=== PATIENT | female | born 1945 | race Caucasian/White ===

== ENCOUNTER 2020-02-28 08:48 | Outpatient (CLI) | payer MEDICARE, SELFPAY ==
--- NOTE | ~2020-02-28 | DEXA_ITS ---
Bone Density Report Name: Michaelle Lopez Age: 74 Sex: Female Ethnicity: White Date of : 1945 Indication: postmenopausal; Referring Provider: Radha Reid Study: Bone densitometry was performed. Exam Date: February 28, 2020 Accession number: [id number] Bone Density: Region BMD T-score Z-score Classification AP Spine (L1-L4) 0.693 -3.2 -0.8 Osteoporosis Femoral Neck (Left) 0.590 -2.3 -0.2 Osteopenia Total Hip (Left) 0.741 -1.6 0.2 Osteopenia Total Hip Bilateral Avg 0.751 -1.6 0.3 Osteopenia Femoral Neck (Right) 0.608 -2.2 -0.1 Osteopenia Total Hip (Right) 0.761 -1.5 0.3 Osteopenia World Health Organization criteria for BMD impression classify patients as: Normal (T-score at or above -1.0), Osteopenia (T-score between -1.0 and -2.5), or Osteoporosis (T-score at or below -2.5). 10-year Fracture Risk: FRAX not reported because: Some T-score for Spine Total or Hip Total or Femoral Neck at or below -2.5 Treated for osteoporosis Clinical Information Provided by Patient: Is being treated for osteoporosis Has used the following medications: Boniva (i.e. ibandronate), Forteo (i.e. parathyroid hormone), Fosamax (i.e. alendronate) Patient maximum height was 65 Menopause Age: 49 Onset of menses at age 11 Number of children 2 Impression: The patient has osteoporosis, based on the Total Spine T-score. Discussion: It is important to ask patients whether they are taking their medications and to encourage continued and appropriate compliance with their osteoporosis therapies to reduce fracture risk. It is also important to review their risk factors and encourage appropriate calcium and vitamin D intakes, exercise, fall prevention and other lifestyle measures. Follow-Up: Consider a repeat BMD and Vertebral Fracture Assessment (VFA) exam in 2 years or sooner if medically necessary, to reassess this patient's status. Reported by: MARIA G on 02/28/2020 9:17:00 AM. Reviewed, dictated and finalized at location [facility] MACIEL
== END 2020-02-28 08:49 | disposition home or self-care (01) ==
LOC: ANHIMG 08:52
PROVIDERS: PCP Internal Medicine; Visit Provider Internal Medicine Endocrinology, Diabetes & Metabolism
DX: M81.0 Age-related osteoporosis without current pathological fracture (principal); M85.89 Other specified disorders of bone density and structure, multiple sites
CPT/HCPCS: 77080

== ENCOUNTER 2020-03-06 09:43 | Outpatient (CLI) | payer MEDICARE, SELFPAY ==
[2020-03-06 10:44] LABS: Blood Urea Nitrogen 26 mg/dL (7-17); Calcium 9.9 mg/dL (8.4-10.2); Carbon Dioxide 31 mmol/L (22-30); Chloride 103 mmol/L (98-107); Estimated Glomerular Filt Rate 48; Glucose 100 mg/dL (65-105); Potassium 4.4 mmol/L (3.4-5.0); Sodium 139 mmol/L (137-145)
== END 2020-03-06 09:44 | disposition home or self-care (01) ==
PROVIDERS: PCP Internal Medicine; Visit Provider Internal Medicine Endocrinology, Diabetes & Metabolism
DX: M81.0 Age-related osteoporosis without current pathological fracture (principal)
CPT/HCPCS: 36415; 80048

== ENCOUNTER → 2020-05-24 14:01 | Outpatient (CLI) | payer MEDICARE, SELFPAY ==
--- NOTE | ~2020-05-24 | MR_ITS ---
EXAMINATION: MR knee RT wo con DATE: 05/24/2020 14:41 INDICATION: Right knee pain. TECHNIQUE: Magnetic resonance imaging (MRI) of the right knee was performed without intravenous contr ast. Sequences included axial PD-weighted FS FSE, coronal PD-weighted FSE and PD-weighted FS FSE, sag ittal PD-weighted FSE, and sagittal T2-weighted FS FSE. COMPARISON: Right knee radiograph 04/11/2020 FINDINGS: Medial compartment: There is an undersurface horizontal tear of body and posterior horn of medial meniscus. There is shal low partial-thickness cartilage loss of femoral condyle involving the central and lateral articular s urface. Tibial cartilage is normal. There are tiny marginal osteophytes. Lateral compartment: Lateral meniscus is normal. There is shallow partial-thickness cartilage loss of tibial condyle invol ving the medial articular surface. Femoral cartilage is normal. There are tiny marginal osteophytes. Patellofemoral compartment: Patellar cartilage is normal. Trochlear cartilage is normal. Ligaments and tendons: The anterior and posterior cruciate ligaments are normal. Medial collateral ligament is normal. There are changes of prior sprain of fibular collateral ligament characterized by increased signal intensi ty proximally. There is mild patellar tendinopathy. Fluid: There is a small knee joint effusion. There is trace fluid in a Carrera's cyst. IMPRESSION: 1. Mild chondrosis of medial and lateral compartments. 2. Tear of medial meniscus. 3. Small knee joint effusion. Reviewed, dictated and finalized at location A.
== END ==
PROVIDERS: Visit Provider Nurse Practitioner Family
DX: M25.461 Effusion, right knee (principal); S83.241A Other tear of medial meniscus, current injury, right knee, initial encounter; X58.XXXA Exposure to other specified factors, initial encounter
CPT/HCPCS: 73721

== ENCOUNTER → 2020-06-24 15:51 | Outpatient (CLI) | payer MEDICARE, SELFPAY ==
--- NOTE | ~2020-06-24 | MM_ITS ---
EXAMINATION: MM screening sonya BI w berny HISTORY: Screening mammogram TECHNIQUE: Craniocaudal and mediolateral oblique 3-D tomosynthesis images were obtained and synthetic 2-D images were generated. CAD analysis was submitted and interpreted. COMPARISON: 05/09/2019, 04/22/2018, 04/08/2017 bilateral digital screening mammogram examinations BREAST PARENCHYMAL COMPOSITION: There are scattered areas of fibroglandular density. FINDINGS: There is no evidence of suspicious mass, calcification, or architectural distortion to sugg est malignancy in either breast. There has been no suspicious interval change. IMPRESSION: 1. No mammographic evidence of malignancy. 2. Recommend routine screening mammography in one year. BI-RADS Category 1: Negative Reviewed, dictated and finalized at location A.
== END ==
PROVIDERS: PCP Internal Medicine; Visit Provider Internal Medicine
DX: Z12.31 Encounter for screening mammogram for malignant neoplasm of breast (principal)
CPT/HCPCS: 77063; 77067

== ENCOUNTER 2021-02-03 13:30 | Outpatient (CLI) | payer MEDICARE, SELFPAY ==
--- NOTE | ~2021-02-03 | US_ITS ---
EXAMINATION: US retroperitoneal comp EXAM DATE: 02/03/2021 14:07 INDICATION: N18.30 - Chronic kidney disease, stage 3 unspecified ckd . TECHNIQUE: Multiple grayscale and Doppler images of the kidneys were obtained (by a technologist who performed the scan) and subsequently reviewed. There is no prior study for comparison. FINDINGS: Right kidney: There is normal contour and mildly increased echogenicity. It measures 9.4 x 4.0 x 4.7 centimeters. There are no focal renal lesions identified. There is no hydronephrosis. Left kidney: There is normal contour and mildly increased echogenicity. It measures 10.4 x 4.2 x 4.0 centimeters. There are no focal renal lesions identified. There is no hydronephrosis. Echogenic region along the posterior inferior aspect of the bladder measured at 11 x 9 mm which did n ot demonstrate vascularity, but also did not demonstrate mobility. This could be a focal region of wa ll thickening, transitional cell cancer should be excluded. IMPRESSION: 1. Focal posterior inferior bladder wall thickening; recommend excluding transitional cell cancer. 2. Mildly echogenic kidneys, medical renal disease. Reviewed, dictated and finalized at location A. IMPRESSION: 1. Focal posterior inferior bladder wall thickening; recommend excluding trans itional cell cancer. 2. Mildly echogenic kidneys, medical renal disease.
== END 2021-02-03 13:31 | disposition home or self-care (01) ==
PROVIDERS: PCP Internal Medicine; Visit Provider Internal Medicine
DX: N18.30 Chronic kidney disease, stage 3 unspecified (principal); R93.41 Abnormal radiologic findings on diagnostic imaging of renal pelvis, ureter, or bladder
CPT/HCPCS: 76770

== ENCOUNTER 2021-04-03 10:00 | Outpatient (CLI) | payer MEDICARE, SELFPAY ==
--- NOTE | ~2021-04-03 | DEXA_ITS ---
Bone Density Report Name: Michaelle Lopez Age: 75 Sex: Female Ethnicity: White Date of : 1945 Indication: postmenopausal osteoporosis; monitoring treatment; Referring Provider: Radha Reid Study: Bone densitometry was performed. Exam Date: April 03, 2021 Accession number: [id number] Bone Density: Region BMD T-score Z-score Classification AP Spine (L1-L4) 0.735 -2.8 -0.3 Osteoporosis Femoral Neck (Left) 0.543 -2.8 -0.6 Osteoporosis Total Hip (Left) 0.714 -1.9 0.0 Osteopenia Total Hip Bilateral Avg 0.739 -1.7 0.2 Osteopenia Femoral Neck (Right) 0.607 -2.2 0.0 Osteopenia Total Hip (Right) 0.762 -1.5 0.4 Osteopenia World Health Organization criteria for BMD impression classify patients as: Normal (T-score at or above -1.0), Osteopenia (T-score between -1.0 and -2.5), or Osteoporosis (T-score at or below -2.5). 10-year Fracture Risk: FRAX not reported because: Some T-score for Spine Total or Hip Total or Femoral Neck at or below -2.5 Treated for osteoporosis Previous Exams: Region Exam Age BMD T-score BMD Change BMD Change Date g/cm2 vs Baseline vs Previous AP Spine(L1-L4) 04/03/2021 75 0.735 -2.8 0.042(6.1%)* 0.042(6.1%)* 02/28/2020 74 0.693 -3.2 Total Hip(Left) 04/03/2021 75 0.714 -1.9 -0.028(-3.7%)* -0.028(-3.7%)* 02/28/2020 74 0.741 -1.6 Total Hip(Right) 04/03/2021 75 0.762 -1.5 0.001(0.1%) 0.001(0.1%) 02/28/2020 74 0.761 -1.5 *Denotes significance at 95% confidence level, LSC for AP Spine = 0.022 g/cm2, LSC for Total Hip = 0.027 g/cm2 Clinical Information Provided by Patient: Is being treated for osteoporosis Has used the following medications: Prolia (i.e. denosumab), Vitamin D, Calcium Patient maximum height was 65 Menopause Age: 49 Onset of menses at age 11 Number of children 2 Impression: The patient has osteoporosis, based on the Total Spine T-score. The BMD for the Total Hip(Left) decreased, changing by -3.7% since the last DXA exam. Discussion: SIGNIFICANT BONE LOSS OBSERVED. Adherence to therapy (including calcium and vitamin D intake) should be assessed. If compliance is not a factor, review management and exclusion of secondary causes of bone loss. It is important to ask patients whether they are taking their medications and to encourage continued and appropriate compliance with their osteoporosis therapies to reduce fracture risk. It is also important to review their risk factors and encourage vignesh
== END 2021-04-03 10:01 | disposition home or self-care (01) ==
LOC: ANHIMG 10:04
PROVIDERS: PCP Internal Medicine; Visit Provider Internal Medicine Endocrinology, Diabetes & Metabolism
DX: M81.0 Age-related osteoporosis without current pathological fracture (principal); M85.851 Other specified disorders of bone density and structure, right thigh; M85.852 Other specified disorders of bone density and structure, left thigh
CPT/HCPCS: 77080

== ENCOUNTER → 2021-07-02 14:28 | Outpatient (CLI) | payer MEDICARE, SELFPAY ==
--- NOTE | ~2021-07-02 | MM_ITS ---
EXAMINATION: MM screening sonya BI w berny HISTORY: Screening mammogram TECHNIQUE: Craniocaudal and mediolateral oblique 3-D tomosynthesis images were obtained and synthetic 2-D images were generated. CAD analysis was submitted and interpreted. COMPARISON: 06/24/2020, 05/09/2019, 04/22/2018 bilateral digital screening mammogram examinations BREAST PARENCHYMAL COMPOSITION: There are scattered areas of fibroglandular density. FINDINGS: There is no evidence of suspicious mass, calcification, or architectural distortion to sugg est malignancy in either breast. There has been no suspicious interval change. IMPRESSION: 1. No mammographic evidence of malignancy. 2. Recommend routine screening mammography in one year. BI-RADS Category 1: Negative Reviewed, dictated and finalized at location A.
== END ==
PROVIDERS: PCP Internal Medicine; Visit Provider Internal Medicine
DX: Z12.31 Encounter for screening mammogram for malignant neoplasm of breast (principal)
CPT/HCPCS: 77063; 77067

== ENCOUNTER 2021-08-15 08:56 | Outpatient (CLI) | payer MEDICARE, SELFPAY ==
[2021-08-15 09:35] LABS: Alanine Aminotransferase 35 U/L (4-35); Albumin Level 4.5 g/dL (3.5-5.1); Alkaline Phosphatase 44 U/L (38-126); Anion Gap 8 mmol/L (8-16); Aspartate Amino Transferase 36 U/L (14-36); Bilirubin,Total 0.7 mg/dL (0.2-1.3); Blood Urea Nitrogen 29 mg/dL (7-17); Carbon Dioxide 28 mmol/L (22-30); Chloride 104 mmol/L (98-107); Estimated Glomerular Filt Rate 40; Glucose 116 mg/dL (65-110); Potassium 4.2 mmol/L (3.4-5.0); Sodium 140 mmol/L (137-145)
== END 2021-08-15 08:57 | disposition home or self-care (01) ==
LOC: ANHLAB 09:02
PROVIDERS: PCP Internal Medicine; Visit Provider Internal Medicine
DX: I10 Essential (primary) hypertension (principal)
CPT/HCPCS: 36415; 80053

== ENCOUNTER 2021-10-24 14:06 | Emergency (ER) | payer MEDICARE, SELFPAY ==
--- NOTE | ~2021-10-24 | XR_ITS ---
EXAMINATION: XR lumbar spine 2-3V EXAM DATE: 10/24/2021 15:35 INDICATION: Fell 2 weeks ago, pain to posterior lower back since then. TECHNIQUE: Lumber spine frontal, lateral, lateral L5-S1 projections for interpretation. Comparison is made to prior examination from 12/24/2017. FINDINGS: Evaluation of the sacrum and transverse processes is somewhat limited due to overlying bow el gas on the frontal projection. There are no acute fractures identified. The vertebral bodies are aligned in the AP dimension. Vertebral body and disc heights are well-maintained. There is moderate lower lumbar facet arthropathy, mild upper lumbar facet arthropathy. Sacral arcuate lines are intact. IMPRESSION: No acute findings. Reviewed, dictated and finalized at location A. H RICE TENDER IMPRESSION: No acute findings.
[2021-10-24 15:00] VITALS: BP 132/75; PULSE 92; RESP 14; TEMP 36.4; O2SAT 99
--- NOTE | 2021-10-24 15:21 | ED.FALL ---
HPI - Fall General Chief Complaint: Fall Stated Complaint: fall, lower back pain Time Seen by Provider: 10/24/21 15:06 Source: patient and family Mode of arrival: ambulatory Limitations: no limitations History of Present Illness HPI Narrative: Patient lost her balance and fell backward 2 weeks ago, complaining of lower back pain, denies other injuries. Was seen by her family physician few days later and was started on Flexeril and ibuprofen. Patient is not getting better. Patient denies radiation of pain patient denies bowel dysfunction, bladder dysfunction, altered sensation, focal weakness, or saddle numbness, Related Data Home Medications Medication Instructions Recorded Confirmed calcium carbonate 500 mg calcium 500 mg PO DAILY 02/26/20 10/06/21 (1,250 mg) tablet cholecalciferol (vitamin D3) 25 25 mcg PO DAILY 02/26/20 10/06/21 mcg (1,000 unit) capsule magnesium 250 mg tablet 250 mg PO DAILY 02/26/20 10/06/21 multivitamin 1 tablet PO DAILY 02/26/20 10/06/21 Allergies Allergy/AdvReac Type Severity Reaction Status Date / Time codeine Allergy Unknown Nausea Verified 10/06/21 13:07 Review of Systems Review of Systems: CONSTITUTIONAL: Denies fever, chills, or sweats. EYES: Denies visual changes, redness, or discharge. ENT: Denies rhinorrhea, congestion, sore throat, or otalgia. CARDIOVASCULAR: Denies chest pain, palpitations, or edema. RESPIRATORY: Denies cough or dyspnea. GASTROINTESTINAL: Denies abdominal pain, nausea, vomiting, or diarrhea. GENITOURINARY: Denies dysuria or hematuria. SKIN: Denies rash or itching. MUSCULOSKELETAL: Denies back pain, joint pain, or myalgia. NEUROLOGIC: Denies headache, numbness, or weakness. PSYCHIATRIC: Denies anxiety or depression. [facility] Past Medical History Medical History Cataracts, both eyes Effusion, right knee Essential hypertension Hepatitis A High blood pressure High cholesterol MCL sprain of right knee Medial meniscus tear Obesity (BMI 30.0-34.9) Osteoporosis Right knee pain Trochanteric bursitis Surgical History Surgical History History of bladder surgery History of breast augmentation History of History of hand surgery History of left knee surgery History of repair of left rotator cuff Family History Family History Father Hypertension Mother Family history of malignant neoplasm of breast in first degree relative Other Cerebrovascular accident Depression High cholesterol Scleroderma Social History Social History Smoking status: Never smoker Second hand tobacco smoke exposure: No Alcohol intake: former Substance use: never Substance use type: does not use 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 Musculoskeletal: Diffuse tenderness across lumbar area, no bruises, no swelling, severe limited range of motion at the lumbar area Neurologic: Alert and oriented ?3, PROFESSOR OF VOICE is normal as tested, no gross motor deficit
[2021-10-24] MEDS: ONDANSETRON HCL ODT 4 MG TABLET PO (16:37)
[2021-10-24] MEDS: MORPHINE SULFATE INJ (*CRX) 10 MG/ML AMP 6 MG IM (16:37)
== END 2021-10-24 17:05 | disposition home or self-care (01) ==
LOC: ANHED 16:00
PROVIDERS: Emergency Provider Emergency Medicine; PCP Internal Medicine
DX: S39.92XA Unspecified injury of lower back, initial encounter (principal); I10 Essential (primary) hypertension; E78.00 Pure hypercholesterolemia, unspecified; M81.0 Age-related osteoporosis without current pathological fracture; E66.9 Obesity, unspecified; Z68.26 Body mass index [BMI] 26.0-26.9, adult; H26.9 Unspecified cataract; W18.39XA Other fall on same level, initial encounter
CPT/HCPCS: 72100; 96372; 99283; A9270; J2270

== ENCOUNTER 2021-10-28 10:18 | Inpatient (IN) | payer MEDICARE, SELFPAY ==
--- NOTE | ~2021-10-28 | CT_ITS ---
EXAMINATION: CT abd pelvis lumbar wo con DATE: 10/28/2021 14:37 INDICATION: Low abdominal pain, low back pain. Constipation for 10 days. TECHNIQUE: Computed tomography (CT) of the abdomen and pelvis and lumbar spine was performed without intravenous contrast. Automated exposure control and iterative reconstruction technique were employed . Exam dose: 652.93 mGy-cm total exam DLP. Lumbar COMPARISON: 10/24/2021 lumbar spine FINDINGS: Bilateral lower lobe discoid atelectasis and/or scarring, right greater than left. Left low er lobe calcified pulmonary granuloma. No consolidation at the lung bases. Normal heart size. No pericardial or pleural effusion. Small sliding hiatal hernia. Approximately 8.5 mm cyst at the anterior aspect of the hepatic dome. The liver is otherwise unremark able. The gallbladder is distended. No gallbladder wall thickening or pericholecystic fluid or fat st randing is evident. Borderline bile duct dilatation. The pancreatic duct is moderately dilated. Corre lation with serum bilirubin level is recommended. MRCP may be of value as clinically appropriate. No apparent pancreatic mass lesion. No pancreatic calcification. Normal splenic size. Normal morphology of the adrenal glands. No renal mass lesion or urinary tract calculus or hydroureteronephrosis is evident. There is prominent distention of the urinary bladder but no bladder wall thickening. The uterus and a dnexal areas are unremarkable. There is atherosclerotic calcification of the abdominal aorta and iliac arteries but no aneurysm. 13.4 x 18.4 mm lymphadenopathy in the left periaortic area at the level of the left renal vein. No in traperitoneal or retroperitoneal or pelvic mass lesion or lymphadenopathy is noted otherwise. No evidence of appendicitis. There is a prominent amount of fecal material throughout the colon. No b owel obstruction, bowel wall thickening, pneumatosis or intraperitoneal free air is detected. Small fat-containing umbilical hernia. There is diffuse osteopenia. Normal alignment of the included lower thoracic and lumbar spine. Lumbar and lumbosacral interspaces are well preserved. Bilateral sacral insufficiency fractures are noted. There is fracture at the anterior articular pillar of the left acetabulum with periosteal new bone fo rmation and recent comminuted fracture of the left inferior pubic ramus. Mild probable old fracture deformity of the right inferior pubic ramus. No suspicious osteolytic or osteoblastic lesions are noted. IMPRESSION: Bilateral recent sacral insufficiency fractures Recent healing fracture of the anterior articular per of the left acetabulum and recent comminuted fr acture of the left inferior pubic ramus Probable old fracture deformity of right inferior pubic ramus Small sliding hiatal hernia Small hepatic cyst Borderline bile duct dilatation and moderate dilatation of the pancreatic duct; recommend correlation with serum bilirubin level. Consider MRCP 13.4 x 18.4 mm focal lymphadenopathy left periaortic area Prominent atrophic material in the colon; no bowel obstruction Reviewed, dictated and finalized at Location A. Reviewed, dictated and finalized at location A. ANOLOGY PROFESSOR IMPRESSION: Bilateral recent sacral insufficiency fractures Recent healing fracture of the anterior articular per of the left acetabulum an d recent comminuted fracture of the left inferior pubic ramus Probable old fracture deformity of right inferior pubic ramus Small sliding hiatal hernia Small hepatic cyst Borderline bile duct dilatation and moderate dilatation of the pancreatic duct; recommend correlation with serum bilirubin level. Consider MRCP 13.4 x 18.4 mm focal lymphadenopathy left periaortic area Prominent atrophic m
--- NOTE | ~2021-10-28 | XR_ITS ---
EXAMINATION: XR abdomen/kub 1V DATE: 11/01/2021 10:55 INDICATION: Constipation. TECHNIQUE: A supine view of the abdomen was obtained. COMPARISON: CT abdomen and pelvis 10/28/2021 FINDINGS: There is a large volume of stool in the colon, which is distended. The small bowel is diann l in caliber. There are healing insufficiency fractures of left superior and inferior pubic rami. IMPRESSION: 1. Large volume of stool in the colon, which is distended. Reviewed, dictated and finalized at location A. HAT FINISHER
[2021-10-28 09:51] VITALS: BP 145/74; PULSE 81; RESP 18; TEMP 36.3; O2SAT 100
[2021-10-28 12:03] VITALS: BP 109/63; PULSE 90; RESP 16; TEMP 36.6; O2SAT 99
[2021-10-28 13:30] VITALS: BP 130/70; PULSE 93; RESP 20; O2SAT 100
[2021-10-28 14:04] LABS: Basophils Absolute Auto 0.1 K/mm3 (0.0-0.1); Basophils Percent Auto 0.4 % (0.2-1.2); Eosinophils Absolute Auto 0.1 K/mm3 (0-0.3); Eosinophils Percent Auto 1.2 % (0-4.4); Hematocrit 38.1 % (37.0-47.0); Hemoglobin 12.6 g/dL (12.0-15.0); Immature Granulocyte Absolute 0.13 K/mm3 (0.00-0.031); Immature Granulocyte Percent A 1.1 % (0-0.5); Lymphocytes Absolute Auto 1.32 K/mm3 (0.9-3.2); Lymphocytes Percent Auto 11.1 % (18.3-44.2); Mean Corpuscular HGB Conc 33.1 g/dl (32-36); Mean Corpuscular Hemoglobin 29.3 pg (26-34); Mean Corpuscular Volume 88.6 fl (80-100); Mean Platelet Volume 9.8 fl (7.4-10.4); Monocytes Percent Auto 8.5 % (2.6-8.5); Neutrophils Absolute Auto 9.2 K/mm3 (1.3-6.7); Neutrophils Percent Auto 77.7 % (45.5-73.1); Platelet Count Result 309 k/mm3 (150-375); Red Cell Distribution Width 13.6 % (11.5-14.5); White Blood Count 11.9 K/mm3 (4.5-10.0)
[2021-10-28] MEDS: MORPHINE SULFATE (*CRX) 4 MG/ML INJ IV PUSH (14:04)
[2021-10-28 14:17] LABS: Alanine Aminotransferase 34 U/L (4-35); Albumin Level 4.3 g/dL (3.5-5.1); Alkaline Phosphatase 197 U/L (38-126); Anion Gap 11 mmol/L (8-16); Aspartate Amino Transferase 42 U/L (14-36); Bilirubin,Total 0.6 mg/dL (0.2-1.3); Blood Urea Nitrogen 43 mg/dL (7-17); Calcium 9.6 mg/dL (8.4-10.2); Carbon Dioxide 20 mmol/L (22-30); Chloride 104 mmol/L (98-107); Estimated CRCL calculation 20 ml/min; Estimated Glomerular Filt Rate 26; Glucose 118 mg/dL (65-110); Lipase 63 U/L (23-300); Potassium 4.4 mmol/L (3.4-5.0); Sodium 135 mmol/L (137-145)
[2021-10-28 15:51] LABS: Add Urine Microscopic? YES; Appearance Urine Clear (Clear); Bilirubin Urine Negative (Negative); Blood Urine Negative (Negative); Color Urine Yellow (Yellow); Glucose Urine UA Negative (Negative); Ketones Urine Negative (Negative); Leukocyte Esterase Ur Negative LEU/UL (Negative); Mucus Urine Rare /lpf; Nitrate Urine Negative (Negative); Protein Urine 2+ mg/dL (Negative); RBC Urine 0-2 /hpf (0-2); Specific Grav Ur 1.018 (1.001-1.035); Squamous Epithelial Cell Urine Rare /hpf (Few); Urobilinogen Urine Negative mg/dL (<2.0); WBC Urine 0-3 /hpf
--- NOTE | 2021-10-28 16:49 | PC.NURSE ---
Pt ambulated in room using walker. Slow with ambulation but tolerated it.
--- NOTE | 2021-10-28 16:55 | ED.BACK ---
HPI - Back Pain/Injury General Chief Complaint: Back Pain/Injury <Geronimo Giles MD - Last Filed: 10/28/21 17:06> Stated Complaint: groin/abd pain <Geronimo Giles MD - Last Filed: 10/28/21 17:06> Time Seen by Provider: 10/28/21 13:23 <Geronimo Giles MD - Last Filed: 10/28/21 17:06> History of Present Illness HPI Narrative: Patient is a 76-year-old female who presents ER with back pain and abdominal discomfort. She reports back pain ongoing for several weeks since a fall. She has had x-rays and has been on anti-inflammatories and muscle relaxers. She has no extremity numbness or tingling. No saddle anesthesia. She does endorse constipation and denies urinary difficulty. Thank you patient here today because of difficulty walking related to this pain this going into her back. <Geronimo Giles MD - Last Filed: 10/28/21 17:06> Related Data Home Medications: Home Medications Medication Instructions Recorded Confirmed calcium carbonate 500 mg calcium 500 mg PO DAILY 02/26/20 10/06/21 (1,250 mg) tablet cholecalciferol (vitamin D3) 25 25 mcg PO DAILY 02/26/20 10/06/21 mcg (1,000 unit) capsule magnesium 250 mg tablet 250 mg PO DAILY 02/26/20 10/06/21 multivitamin 1 tablet PO DAILY 02/26/20 10/06/21 rosuvastatin 40 mg DAILY 10/28/21 <Geronimo Giles MD - Last Filed: 10/28/21 17:06> Allergies/Adverse Reactions: Allergies Allergy/AdvReac Type Severity Reaction Status Date / Time codeine Allergy Unknown Nausea Verified 10/28/21 13:33 <Geronimo Giles MD - Last Filed: 10/28/21 17:06> Review of Systems Review of Systems: All systems reviewed & are unremarkable except as noted in HPI and below <Geronimo Giles MD - Last Filed: 10/28/21 17:06> Constitutional: Constitutional: Denies chills, Denies fever(s) and Denies weakness <Geronimo Giles MD - Last Filed: 10/28/21 17:06> ENT: Denies nasal congestion and Denies sore throat <Geronimo Giles MD - Last Filed: 10/28/21 17:06> Cardiovascular: Cardiovascular: Denies chest pain, Denies rapid heart rate and Denies radiating jaw, neck or arm pain <Geronimo Giles MD - Last Filed: 10/28/21 17:06> Respiratory: Respiratory: Denies cough and Denies dyspnea <Geronimo Giles MD - Last Filed: 10/28/21 17:06> Gastrointestinal: Gastrointestinal: Reports abdominal pain, Reports constipation, Denies nausea and Denies vomiting <Geronimo Giles MD - Last Filed: 10/28/21 17:06> Genitourinary: Genitourinary: Denies hematuria, Denies nocturia and Denies dysuria <Geronimo Giles MD - Last Filed: 10/28/21 17:06> Musculoskeletal: Musculoskeletal: Reports back pain, Denies arthralgias, Denies joint swelling and Denies muscle cramps <Geronimo Giles MD - Last Filed: 10/28/21 17:06> Neurologic: Denies syncope, Denies focal weakness and Denies numbness <Geronimo Giles MD - Last Filed: 10/28/21 17:06> COUNTS INCLUDE 234 BEDS AT THE [facility] Past Medical History Medical History: Medical History Cataracts, both eyes Effusion, right knee Essential hypertension Hepatitis A High blood pressure High cholesterol MCL sprain of right knee Medial meniscus tear Obesity (BMI 30.0-34.9) Osteoporosis Right knee pain Trochanteric bursitis <Geronimo Giles MD - Last Filed: 10/28/21 17:06> Surgical History Surgical History: Surgical History History of bladder surgery History of breast augmentation History of History of hand surgery History of left knee surgery History of repair of left rotator cuff <Geronimo Giles MD - Last Filed: 10/28/21 17:06> Family History Family History: Family History Father Hypertension Mother Family history of malignant neoplasm of breast in first degree relative Other Cerebrovascular accident Depression Hi
[2021-10-28 17:36] LABS: Vitamin D 25 Hydroxy 50.8 ng/mL
[2021-10-28] MEDS: SODIUM CHLORIDE 0.9% IV 1,000 ML 500 ML IV CONT (18:39)
--- NOTE | 2021-10-28 19:00 | PC.NURSE ---
Assuming care of pt.
--- NOTE | 2021-10-28 19:09 | PCCCNOTE ---
Called to ER to meet with patient regarding placement. Met with patient and son at bedside, Daughter in Law Kourtney on speaker phone. Kourtney is a SW and used to work in Care Coordination at [employer]. Patient is a and lives home alone. Independent with ADLS and still driving, denies any respiratory equipment. Pelvic injury and needing placement post dc. [facility], Would also like referrals sent to [facility]. Spoke with in ED and requested that PT/OT be ordered and he states that she will be admitted as observation. Referrals fax'd to facilities and voice mail left with MANASA to look for referral in AM as first choice from family and ED MD feels patient would be a good candidate. OBRA screen has been called. Kourtney would like to be point of contact, patient gives verbal permission to contact Kourtney about her dc planning .
[2021-10-28 19:14] VITALS: BP 134/55; PULSE 91; RESP 16; O2SAT 98
--- NOTE | 2021-10-28 21:05 | ADMGEN ---
This patient, Michaelle Lopez, was admitted to Medical Room 345-01. Patient/family oriented to hospital policies and general routines including ID bracelet, bed and alarms, visiting hours, pain management, procedures, bathroom and other care routines, personal items, smoking policy, room service/diet, and visiting hours. Information on how to activate the Rapid Response Team has been discussed. Patient/Family are encouraged to report perceived risks to care and to ask questions if they do not understand what they are told or what they should do.
[2021-10-28 21:08] VITALS: BMI 27.8
[2021-10-28 21:09] VITALS: BP 128/48; PULSE 86; RESP 18; TEMP 36.5; O2SAT 99
[2021-10-28] MEDS: SODIUM CHLORIDE 0.9% IV 1,000 ML 100 ML IV CONT ×2 (21:39→23:12)
[2021-10-28] MEDS: traMADol HCL (*CRX) 50 MG TABLET PO (23:10)
[2021-10-28 23:57] VITALS: BP 112/53; PULSE 77; RESP 18; TEMP 36.8; O2SAT 95
[2021-10-29 05:34] VITALS: BP 129/59; PULSE 68; RESP 18; TEMP 36.6; O2SAT 95
[2021-10-29 05:37] VITALS: BP 129/59; PULSE 68; RESP 18; TEMP 36.6; O2SAT 95
[2021-10-29 06:35] LABS: Anion Gap 9 mmol/L (8-16); Blood Urea Nitrogen 38 mg/dL (7-17); Calcium 8.6 mg/dL (8.4-10.2); Carbon Dioxide 20 mmol/L (22-30); Chloride 108 mmol/L (98-107); Estimated CRCL calculation 26 ml/min; Estimated Glomerular Filt Rate 31; Glucose 93 mg/dL (65-110); Potassium 4.3 mmol/L (3.4-5.0); Sodium 137 mmol/L (137-145)
--- NOTE | 2021-10-29 08:30 | PM.IMHP ---
H&P: HPI History of Present Illness Date/Time: 10/29/21 0830 Chief Complaint: Severe pain and weakness Narrative: Patient is a 76-year-old female with a past medical history of hypothyroid state, high blood pressure, hyperlipidemia, and osteoporosis who stated that 2 weeks ago she was at the police station giving [employer] gifts. When she left she thought her hands were on the door when they were really on the pain window near the door. When she went to push it open it knocked her back and she fell on her buttocks. Patient thought that she had just pulled a muscle however she has been doing ADLs and getting around well. Last Wednesday she noticed that the pain was getting worse and she was unable to do as much as she is used to. She was taken Tylenol and Aleve and it was not helping. Patient was given a prescription for muscle relaxer which did help her to sleep. Patient also noticed that she was not urinating as much either. she stated that she had not urinated all day long until at night when she finally went which she felt was a lot. She has also been experiencing frequency and urgency. She denies pain with urinating. She has also been experiencing constipation and was prescribed a school softener however she states that her last bowel movement was about a week ago and she has a normal every day bowel movement person. Currently pain is a 5/10. A CT from 10/28/2021 showed bilateral sacral insufficiency fractures. Ho was placed on ED and patient was found to have urinary retention. Patient currently denies chest pain, shortness of breath, nausea, vomiting, abdominal pain, headaches, loss of appetite. Patient has been vaccinated for COVID x3 with Moderna and has received her flu shot. Patient is being admitted to the hospital service under observation for rehab placement and urinary retention. ER does note that Dr. Welsh has been consulted and recommended weight-bearing as tolerated with a walker along with checking a vitamin-D level. He also suggest the patient has NSAID should be discontinued at this time. Review of Systems Review of Systems: All systems reviewed & are unremarkable except as noted in HPI and below [facility] Past Medical History Medical History (Updated 10/29/21 @ 17:18 by SHELIA AcostaN-Boris) Cataracts, both eyes Effusion, right knee Essential hypertension Hepatitis A High blood pressure High cholesterol Obesity (BMI 30.0-34.9) Osteoporosis Right knee pain Family History Family History Father Hypertension Cerebrovascular accident Mother Family history of malignant neoplasm of breast in first degree relative Other High cholesterol Scleroderma Social History Social History (Updated 10/29/21 @ 17:20 by KALLI Acosta) Social History: Patient lives at home by herself since her of CHF in August of 2020. Patient has 2 adult boys with 4 grandchildren. She denies having any pets and her son Brenden who lives here should be called 1st Carlos A 2nd for surrogate. 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 Patient wishes to be a full code however she does not want any long-term ventilation intubation or prolongation of life. 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
[2021-10-29 10:00] LABS: Alanine Aminotransferase 28 U/L (4-35); Albumin Level 3.3 g/dL (3.5-5.1); Alkaline Phosphatase 153 U/L (38-126); Aspartate Amino Transferase 36 U/L (14-36); Bilirubin,Total 0.4 mg/dL (0.2-1.3)
[2021-10-29] MEDS: SODIUM CHLORIDE 0.9% IV 1,000 ML 100 ML IV CONT ×2 (10:33→20:39)
--- NOTE | 2021-10-29 11:09 | PCOTNOTE ---
Waiting for ortho consult to be completed in order to complete OT evaluation. Will follow.
[2021-10-29] MEDS: CALCIUM CARBONATE (OSCAL) 500 MG TABLET PO (11:35)
[2021-10-29] MEDS: MULTIVITAMINS THERAPEUTIC TAB (*BKC) 1 TABLET PO (11:36)
[2021-10-29] MEDS: LEVOTHYROXINE SODIUM 50 MCG TABLET PO (11:36)
[2021-10-29] MEDS: MAGNESIUM 13.5 MG TABLET (250 MG MAG GLUCONATE) PO (11:36)
[2021-10-29] MEDS: CHOLECALCIFEROL 1,000 UNITS TABLET 1000 UNITS PO (11:36)
[2021-10-29] MEDS: polyethylene glycoL 3350 17 GM POWD.PACK PO (12:35)
[2021-10-29 14:00] VITALS: BP 138/56; PULSE 75; RESP 16; TEMP 36.2; O2SAT 98
[2021-10-29] MEDS: ROSUVASTATIN 10 MG TABLET 40 MG PO (20:28)
[2021-10-29 20:29] VITALS: PULSE 75; RESP 18; O2SAT 98
[2021-10-29] MEDS: SENNOSIDES 8.6 MG TABLET PO (20:29)
[2021-10-29 22:35] VITALS: BP 134/64; PULSE 79; RESP 20; TEMP 36.5; O2SAT 95
[2021-10-30] MEDS: traMADol HCL (*CRX) 50 MG TABLET PO (00:48)
[2021-10-30] MEDS: SODIUM CHLORIDE 0.9% IV 1,000 ML 100 ML IV CONT (06:24)
[2021-10-30] MEDS: LEVOTHYROXINE SODIUM 50 MCG TABLET PO (06:24)
[2021-10-30 06:25] VITALS: BP 143/61; PULSE 70; RESP 20; TEMP 36.3; O2SAT 97
[2021-10-30 06:46] LABS: Basophils Absolute Auto 0.1 K/mm3 (0.0-0.1); Basophils Percent Auto 0.6 % (0.2-1.2); Eosinophils Absolute Auto 0.3 K/mm3 (0-0.3); Eosinophils Percent Auto 2.7 % (0-4.4); Hemoglobin 10.3 g/dL (12.0-15.0); Immature Granulocyte Absolute 0.11 K/mm3 (0.00-0.031); Immature Granulocyte Percent A 1.2 % (0-0.5); Lymphocytes Absolute Auto 1.91 K/mm3 (0.9-3.2); Lymphocytes Percent Auto 20.2 % (18.3-44.2); Mean Corpuscular HGB Conc 32.2 g/dl (32-36); Mean Corpuscular Hemoglobin 28.8 pg (26-34); Mean Corpuscular Volume 89.4 fl (80-100); Mean Platelet Volume 9.8 fl (7.4-10.4); Monocytes Absolute Auto 0.8 K/mm3 (0.1-0.6); Monocytes Percent Auto 8.7 % (2.6-8.5); Neutrophils Absolute Auto 6.3 K/mm3 (1.3-6.7); Neutrophils Percent Auto 66.6 % (45.5-73.1); Platelet Count Result 275 k/mm3 (150-375); Red Blood Count 3.58 M/mm3 (4.2-5.4); Red Cell Distribution Width 13.5 % (11.5-14.5); White Blood Count 9.5 K/mm3 (4.5-10.0)
[2021-10-30 07:10] LABS: Alanine Aminotransferase 25 U/L (4-35); Albumin Level 3.1 g/dL (3.5-5.1); Alkaline Phosphatase 143 U/L (38-126); Anion Gap 7 mmol/L (8-16); Aspartate Amino Transferase 29 U/L (14-36); Bilirubin,Total 0.4 mg/dL (0.2-1.3); Blood Urea Nitrogen 26 mg/dL (7-17); Calcium 8.6 mg/dL (8.4-10.2); Carbon Dioxide 20 mmol/L (22-30); Chloride 109 mmol/L (98-107); Estimated CRCL calculation 30 ml/min; Estimated Glomerular Filt Rate 36; Glucose 97 mg/dL (65-110); Magnesium 2.1 mg/dL (1.6-2.3); Potassium 4.4 mmol/L (3.4-5.0); Sodium 136 mmol/L (137-145)
--- NOTE | 2021-10-30 09:15 | P.PNIM_ITS ---
Progress Note: A&P Assessment and Plan (1) Bilateral sacral insufficiency fracture: Qualifiers: Encounter type: initial encounter Qualified Code(s): M84.48XA - Pathological fracture, other site, initial encounter for fracture Code(s): M84.48XA - Pathological fracture, other site, initial encounter for fracture Status: Acute Assessment and Plan: * Found on the CT from 10/28/2021 * Continue p.r.n. morphine, tramadol * PT and OT * Walk with a walker * Rehab placement * Vit D level 50.8 * Dr. Welsh was talked to by the ED who recommended weight bearing as tolerated (2) Closed fracture of pubic ramus: Qualifiers: Encounter type: initial encounter Laterality: unspecified laterality Qualified Code(s): S32.599A - Other specified fracture of unspecified pubis, initial encounter for closed fracture Code(s): S32.599A - Other specified fracture of unspecified pubis, initial encounter for closed fracture Status: Acute Assessment and Plan: * See above (3) Acute urinary retention: Code(s): R33.8 - Other retention of urine Status: Acute Assessment and Plan: * Ho inserted * Probably related to pain * Void trial performed today * Ho out at 1015 * Tamsulosin started (4) Constipation: Qualifiers: Constipation type: unspecified constipation type Qualified Code(s): K59.00 - Constipation, unspecified Code(s): K59.00 - Constipation, unspecified Status: Acute Assessment and Plan: * Last BM 1 week ago * Senna and miralax ordered * Suppository once (5) Essential hypertension: Code(s): I10 - Essential (primary) hypertension Status: Acute Assessment and Plan: * Current BP 143/61 * Lisinopril restarted * add hydralazine with parameters * Trend blood pressure * Adjust medications as needed (6) Hyperlipidemia, unspecified: Qualifiers: Hyperlipidemia type: mixed hyperlipidemia Qualified Code(s): E78.2 - Mixed hyperlipidemia Code(s): E78.5 - Hyperlipidemia, unspecified Status: Acute Assessment and Plan: * Continue home rosuvastatin * LFTs normal (7) Hypothyroidism, unspecified: Qualifiers: Hypothyroidism type: acquired Qualified Code(s): E03.9 - Hypothyroidism, unspecified Code(s): E03.9 - Hypothyroidism, unspecified Status: Acute Assessment and Plan: * Continue home levothyroxine (8) VIVEK (acute kidney injury): Code(s): N17.9 - Acute kidney failure, unspecified Status: Acute Assessment and Plan: * BUN/Cr elevated 43/1.90 upon admission * Trending downward, currently 26/1.40 * Baseline looks to be about 25 and 1.3 * IV fluids for hydration, DC this time * Continue to trend labs * Probably related to dehydration Time Spent With Patient Time with patient: 25 - 35 minutes Subjective Date/time seen: 10/30/21 09:15 Interval history: Date/Time: 10/29/21 0830 Narrative: Patient is a 76-year-old female with a past medical history of hypothyroid state, high blood pressure, hyperlipidemia, and osteoporosis who stated that 2 weeks ago she was at the police station giving [employer] gifts. When she left she thought her hands were on the door when they were really on the pain window near the door. When she went to push it open it knocked her back and she f
--- NOTE | 2021-10-30 09:15 | PM.IMPN ---
Progress Note: A&P Assessment and Plan (1) Bilateral sacral insufficiency fracture: Qualifiers: Encounter type: initial encounter Qualified Code(s): M84.48XA - Pathological fracture, other site, initial encounter for fracture Code(s): M84.48XA - Pathological fracture, other site, initial encounter for fracture Status: Acute Assessment and Plan: Found on the CT from 10/28/2021 Continue p.r.n. morphine, tramadol PT and OT Walk with a walker Rehab placement Vit D level 50.8 Dr. Welsh was talked to by the ED who recommended weight bearing as tolerated (2) Closed fracture of pubic ramus: Qualifiers: Encounter type: initial encounter Laterality: unspecified laterality Qualified Code(s): S32.599A - Other specified fracture of unspecified pubis, initial encounter for closed fracture Code(s): S32.599A - Other specified fracture of unspecified pubis, initial encounter for closed fracture Status: Acute Assessment and Plan: See above (3) Acute urinary retention: Code(s): R33.8 - Other retention of urine Status: Acute Assessment and Plan: Ho inserted Probably related to pain Void trial performed today Ho out at 1015 Tamsulosin started (4) Constipation: Qualifiers: Constipation type: unspecified constipation type Qualified Code(s): K59.00 - Constipation, unspecified Code(s): K59.00 - Constipation, unspecified Status: Acute Assessment and Plan: Last BM 1 week ago Senna and miralax ordered Suppository once (5) Essential hypertension: Code(s): I10 - Essential (primary) hypertension Status: Acute Assessment and Plan: Current BP 143/61 Lisinopril restarted add hydralazine with parameters Trend blood pressure Adjust medications as needed (6) Hyperlipidemia, unspecified: Qualifiers: Hyperlipidemia type: mixed hyperlipidemia Qualified Code(s): E78.2 - Mixed hyperlipidemia Code(s): E78.5 - Hyperlipidemia, unspecified Status: Acute Assessment and Plan: Continue home rosuvastatin LFTs normal (7) Hypothyroidism, unspecified: Qualifiers: Hypothyroidism type: acquired Qualified Code(s): E03.9 - Hypothyroidism, unspecified Code(s): E03.9 - Hypothyroidism, unspecified Status: Acute Assessment and Plan: Continue home levothyroxine (8) VIVEK (acute kidney injury): Code(s): N17.9 - Acute kidney failure, unspecified Status: Acute Assessment and Plan: BUN/Cr elevated 43/1.90 upon admission Trending downward, currently 26/1.40 Baseline looks to be about 25 and 1.3 IV fluids for hydration, DC this time Continue to trend labs Probably related to dehydration Time Spent With Patient Time with patient: 25 - 35 minutes Subjective Date/time seen: 10/30/21 09:15 Interval history: Date/Time: 10/29/21829 Narrative: Patient is a 76-year-old female with a past medical history of hypothyroid state, high blood pressure, hyperlipidemia, and osteoporosis who stated that 2 weeks ago she was at the police station giving [employer] gifts. When she left she thought her hands were on the door when they were really on the pain window near the door. When she went to push it open it knocked her back and she fell on her buttocks. Patient thought that she had just pulled a muscle however she has been doing ADLs and getting around well. Last Wednesday she noticed that the pain was getting worse and she was unable to do as much as she is used to. She was taken Tylenol and Aleve and it was not helping. Patient was given a prescription for muscle relaxer which did help her to sleep. Patient also noticed that she was not urinating as much either. she stated that she had not urinated all day long until at night when she finally went which she felt
[2021-10-30] MEDS: CHOLECALCIFEROL 1,000 UNITS TABLET 1000 UNITS PO (09:59)
[2021-10-30] MEDS: MULTIVITAMINS THERAPEUTIC TAB (*BKC) 1 TABLET PO (09:59)
[2021-10-30] MEDS: polyethylene glycoL 3350 17 GM POWD.PACK PO (09:59)
[2021-10-30] MEDS: CALCIUM CARBONATE (OSCAL) 500 MG TABLET PO (09:59)
[2021-10-30] MEDS: MAGNESIUM 13.5 MG TABLET (250 MG MAG GLUCONATE) PO (09:59)
[2021-10-30] MEDS: ENOXAPARIN 40 MG/0.4 ML SYRINGE SUB-Q (10:00)
[2021-10-30 14:20] VITALS: BP 131/104; PULSE 70; RESP 18; TEMP 37.2; O2SAT 98
[2021-10-30] MEDS: hydrALAZINE HCL 20 MG/ML VIAL 10 MG IV PUSH (15:54)
[2021-10-30] MEDS: BISACODYL 10 MG SUPPOSITORY RECTAL (15:55)
[2021-10-30] MEDS: TAMSULOSIN HCL 0.4 MG CAPSULE PO (15:55)
[2021-10-30] MEDS: lisinopriL 10 MG TABLET PO (15:55)
[2021-10-30 20:27] VITALS: RESP 18; O2SAT 99
[2021-10-30] MEDS: SENNOSIDES 8.6 MG TABLET PO (20:36)
[2021-10-30] MEDS: ROSUVASTATIN 10 MG TABLET 40 MG PO (20:37)
[2021-10-30 21:45] VITALS: BP 111/58; PULSE 95; RESP 18; TEMP 36.3; O2SAT 96
[2021-10-31] MEDS: CYCLOBENZAPRINE HCL 5 MG TABLET PO ×2 (00:01→08:33)
[2021-10-31] MEDS: traMADol HCL (*CRX) 50 MG TABLET PO (00:01)
[2021-10-31 06:18] LABS: Basophils Absolute Auto 0.1 K/mm3 (0.0-0.1); Basophils Percent Auto 0.6 % (0.2-1.2); Eosinophils Absolute Auto 0.1 K/mm3 (0-0.3); Eosinophils Percent Auto 1.2 % (0-4.4); Hematocrit 33.7 % (37.0-47.0); Immature Granulocyte Absolute 0.16 K/mm3 (0.00-0.031); Immature Granulocyte Percent A 1.7 % (0-0.5); Lymphocytes Absolute Auto 1.51 K/mm3 (0.9-3.2); Lymphocytes Percent Auto 15.7 % (18.3-44.2); Mean Corpuscular HGB Conc 32.6 g/dl (32-36); Mean Corpuscular Hemoglobin 29.1 pg (26-34); Mean Corpuscular Volume 89.2 fl (80-100); Mean Platelet Volume 10.1 fl (7.4-10.4); Monocytes Absolute Auto 0.9 K/mm3 (0.1-0.6); Monocytes Percent Auto 9.1 % (2.6-8.5); Neutrophils Absolute Auto 6.9 K/mm3 (1.3-6.7); Neutrophils Percent Auto 71.7 % (45.5-73.1); Platelet Count Result 299 k/mm3 (150-375); Red Blood Count 3.78 M/mm3 (4.2-5.4); Red Cell Distribution Width 13.5 % (11.5-14.5); White Blood Count 9.6 K/mm3 (4.5-10.0)
[2021-10-31 06:25] LABS: Alanine Aminotransferase 26 U/L (4-35); Albumin Level 3.5 g/dL (3.5-5.1); Alkaline Phosphatase 165 U/L (38-126); Anion Gap 5 mmol/L (8-16); Aspartate Amino Transferase 30 U/L (14-36); Bilirubin,Total 0.5 mg/dL (0.2-1.3); Blood Urea Nitrogen 26 mg/dL (7-17); Calcium 9.7 mg/dL (8.4-10.2); Carbon Dioxide 25 mmol/L (22-30); Chloride 104 mmol/L (98-107); Estimated CRCL calculation 32 ml/min; Estimated Glomerular Filt Rate 40; Glucose 117 mg/dL (65-110); Magnesium 1.9 mg/dL (1.6-2.3); Potassium 4.6 mmol/L (3.4-5.0); Sodium 134 mmol/L (137-145)
[2021-10-31] MEDS: LEVOTHYROXINE SODIUM 50 MCG TABLET PO (06:31)
[2021-10-31 06:40] VITALS: BP 139/69; PULSE 82; RESP 18; TEMP 36; O2SAT 96
[2021-10-31] MEDS: CALCIUM CARBONATE (OSCAL) 500 MG TABLET PO (08:27)
[2021-10-31] MEDS: lisinopriL 10 MG TABLET PO (08:27)
[2021-10-31] MEDS: MAGNESIUM 13.5 MG TABLET (250 MG MAG GLUCONATE) PO (08:27)
[2021-10-31] MEDS: CHOLECALCIFEROL 1,000 UNITS TABLET 1000 UNITS PO (08:28)
[2021-10-31] MEDS: ENOXAPARIN 40 MG/0.4 ML SYRINGE SUB-Q (08:28)
[2021-10-31] MEDS: polyethylene glycoL 3350 17 GM POWD.PACK PO (08:28)
[2021-10-31] MEDS: TAMSULOSIN HCL 0.4 MG CAPSULE PO (08:28)
[2021-10-31] MEDS: MULTIVITAMINS THERAPEUTIC TAB (*BKC) 1 TABLET PO (08:28)
--- NOTE | 2021-10-31 09:15 | P.PNIM_ITS ---
Progress Note: A&P Assessment and Plan (1) Bilateral sacral insufficiency fracture: Qualifiers: Encounter type: initial encounter Qualified Code(s): M84.48XA - Pathological fracture, other site, initial encounter for fracture Code(s): M84.48XA - Pathological fracture, other site, initial encounter for fracture Status: Acute Assessment and Plan: * Found on the CT from 10/28/2021 * Continue p.r.n. morphine, tramadol * PT and OT * Walk with a walker * Rehab placement * Vit D level 50.8 * Dr. Welsh was talked to by the ED who recommended weight bearing as tolerated (2) Closed fracture of pubic ramus: Qualifiers: Encounter type: initial encounter Laterality: unspecified laterality Qualified Code(s): S32.599A - Other specified fracture of unspecified pubis, initial encounter for closed fracture Code(s): S32.599A - Other specified fracture of unspecified pubis, initial encounter for closed fracture Status: Acute Assessment and Plan: * See above (3) Acute urinary retention: Code(s): R33.8 - Other retention of urine Status: Acute Assessment and Plan: * Urinary catheter was placed in ED and removed 10/30/21 * Bladder scan PRN * Probably related to pain * Void trial performed 10/30/21 was able to urinate, however, reports lack of output * Tamsulosin started (4) Constipation: Qualifiers: Constipation type: unspecified constipation type Qualified Code(s): K59.00 - Constipation, unspecified Code(s): K59.00 - Constipation, unspecified Status: Acute Assessment and Plan: * Last BM 1 week ago * Senna and miralax ordered * Suppository once, repeated * One time dose of 10mg PO bisacodyl (5) Essential hypertension: Code(s): I10 - Essential (primary) hypertension Status: Acute Assessment and Plan: * Current BP 139/69 * Lisinopril restarted * add hydralazine with parameters * Trend blood pressure * Adjust medications as needed (6) Hyperlipidemia, unspecified: Qualifiers: Hyperlipidemia type: mixed hyperlipidemia Qualified Code(s): E78.2 - Mixed hyperlipidemia Code(s): E78.5 - Hyperlipidemia, unspecified Status: Acute Assessment and Plan: * Continue home rosuvastatin * LFTs normal (7) Hypothyroidism, unspecified: Qualifiers: Hypothyroidism type: acquired Qualified Code(s): E03.9 - Hypothyroidism, unspecified Code(s): E03.9 - Hypothyroidism, unspecified Status: Acute Assessment and Plan: * Continue home levothyroxine (8) VIVEK (acute kidney injury): Code(s): N17.9 - Acute kidney failure, unspecified Status: Acute Assessment and Plan: * BUN/Cr elevated 43/1.90 upon admission * Trending downward, currently 26/1.30 * Baseline looks to be about 25 and 1.3 * Continue to trend labs * Probably related to dehydration (9) Confusion: Code(s): R41.0 - Disorientation, unspecified Status: Acute Assessment and Plan: * Was reported by nursing * A&O x4 at time of exam * UA and culture pending * Could be a metabolic encephalopathy, however, if it is happening could be just at night Time Spent With Patient Time with patient: 25 - 35 minutes Subjective Date/time seen: 10/31/21 0915 Interval history: Date/Time: 10/29/21
--- NOTE | 2021-10-31 09:15 | PM.IMPN ---
Progress Note: A&P Assessment and Plan (1) Bilateral sacral insufficiency fracture: Qualifiers: Encounter type: initial encounter Qualified Code(s): M84.48XA - Pathological fracture, other site, initial encounter for fracture Code(s): M84.48XA - Pathological fracture, other site, initial encounter for fracture Status: Acute Assessment and Plan: Found on the CT from 10/28/2021 Continue p.r.n. morphine, tramadol PT and OT Walk with a walker Rehab placement Vit D level 50.8 Dr. Welsh was talked to by the ED who recommended weight bearing as tolerated (2) Closed fracture of pubic ramus: Qualifiers: Encounter type: initial encounter Laterality: unspecified laterality Qualified Code(s): S32.599A - Other specified fracture of unspecified pubis, initial encounter for closed fracture Code(s): S32.599A - Other specified fracture of unspecified pubis, initial encounter for closed fracture Status: Acute Assessment and Plan: See above (3) Acute urinary retention: Code(s): R33.8 - Other retention of urine Status: Acute Assessment and Plan: Urinary catheter was placed in ED and removed 10/30/21 Bladder scan PRN Probably related to pain Void trial performed 10/30/21 was able to urinate, however, reports lack of output Tamsulosin started (4) Constipation: Qualifiers: Constipation type: unspecified constipation type Qualified Code(s): K59.00 - Constipation, unspecified Code(s): K59.00 - Constipation, unspecified Status: Acute Assessment and Plan: Last BM 1 week ago Senna and miralax ordered Suppository once, repeated One time dose of 10mg PO bisacodyl (5) Essential hypertension: Code(s): I10 - Essential (primary) hypertension Status: Acute Assessment and Plan: Current BP 139/69 Lisinopril restarted add hydralazine with parameters Trend blood pressure Adjust medications as needed (6) Hyperlipidemia, unspecified: Qualifiers: Hyperlipidemia type: mixed hyperlipidemia Qualified Code(s): E78.2 - Mixed hyperlipidemia Code(s): E78.5 - Hyperlipidemia, unspecified Status: Acute Assessment and Plan: Continue home rosuvastatin LFTs normal (7) Hypothyroidism, unspecified: Qualifiers: Hypothyroidism type: acquired Qualified Code(s): E03.9 - Hypothyroidism, unspecified Code(s): E03.9 - Hypothyroidism, unspecified Status: Acute Assessment and Plan: Continue home levothyroxine (8) VIVEK (acute kidney injury): Code(s): N17.9 - Acute kidney failure, unspecified Status: Acute Assessment and Plan: BUN/Cr elevated 43/1.90 upon admission Trending downward, currently 26/1.30 Baseline looks to be about 25 and 1.3 Continue to trend labs Probably related to dehydration (9) Confusion: Code(s): R41.0 - Disorientation, unspecified Status: Acute Assessment and Plan: Was reported by nursing A&O x4 at time of exam UA and culture pending Could be a metabolic encephalopathy, however, if it is happening could be just at night Time Spent With Patient Time with patient: 25 - 35 minutes Subjective Date/time seen: 10/31/21914 Interval history: Date/Time: 10/29/21829 Narrative: Patient is a 76-year-old female with a past medical history of hypothyroid state, high blood pressure, hyperlipidemia, and osteoporosis who stated that 2 weeks ago she was at the police station giving [employer] gifts. When she left she thought her hands were on the door when they were really on the pain window near the door. When she went to push it open it knocked her back and she fell on her buttocks. Patient thought that she had just pulled a muscle however she has been doing ADLs and getting around well. Last Wednesday she noticed that the pain was
[2021-10-31] MEDS: BISACODYL 5 MG TABLET EC PO (09:53)
[2021-10-31 10:46] LABS: Add Urine Microscopic? YES; Appearance Urine Clear (Clear); Bilirubin Urine Negative (Negative); Blood Urine Negative (Negative); Color Urine Yellow (Yellow); Glucose Urine UA Negative (Negative); Ketones Urine Negative (Negative); Leukocyte Esterase Ur Negative LEU/UL (NEGATIVE); Mucus Urine Rare /lpf; Nitrate Urine Negative (Negative); Protein Urine 1+ mg/dL (Negative); RBC Urine 0-2 /hpf (0-2); Specific Grav Ur 1.013 (1.001-1.035); Squamous Epithelial Cell Urine Rare /hpf (Few); Urobilinogen Urine Negative mg/dL (<2.0); WBC Urine 0-3 /hpf (0-3)
[2021-10-31] MEDS: BISACODYL 10 MG SUPPOSITORY RECTAL (11:19)
[2021-10-31 15:12] VITALS: BP 148/67; PULSE 85; RESP 18; TEMP 37.4; O2SAT 96
[2021-10-31 20:00] VITALS: PULSE 85; RESP 18; O2SAT 96
[2021-10-31] MEDS: SENNOSIDES 8.6 MG TABLET PO (20:59)
[2021-10-31] MEDS: ROSUVASTATIN 10 MG TABLET 40 MG PO (20:59)
[2021-10-31 22:00] VITALS: BP 152/71; PULSE 93; RESP 18; TEMP 36.9; O2SAT 96
[2021-11-01] MEDS: LEVOTHYROXINE SODIUM 50 MCG TABLET PO (05:47)
[2021-11-01 06:00] VITALS: BP 133/66; PULSE 80; RESP 16; TEMP 36.6; O2SAT 97
[2021-11-01 07:12] LABS: Basophils Absolute Auto 0.1 K/mm3 (0.0-0.1); Basophils Percent Auto 0.7 % (0.2-1.2); Eosinophils Absolute Auto 0.3 K/mm3 (0-0.3); Eosinophils Percent Auto 2.5 % (0-4.4); Hematocrit 32.3 % (37.0-47.0); Hemoglobin 10.7 g/dL (12.0-15.0); Immature Granulocyte Absolute 0.16 K/mm3 (0.00-0.031); Immature Granulocyte Percent A 1.6 % (0-0.5); Lymphocytes Absolute Auto 1.73 K/mm3 (0.9-3.2); Lymphocytes Percent Auto 17.1 % (18.3-44.2); Mean Corpuscular HGB Conc 33.1 g/dl (32-36); Mean Corpuscular Hemoglobin 28.8 pg (26-34); Mean Corpuscular Volume 87.1 fl (80-100); Monocytes Absolute Auto 0.9 K/mm3 (0.1-0.6); Monocytes Percent Auto 9.3 % (2.6-8.5); Neutrophils Percent Auto 68.8 % (45.5-73.1); Platelet Count Result 321 k/mm3 (150-375); Red Blood Count 3.71 M/mm3 (4.2-5.4); Red Cell Distribution Width 13.4 % (11.5-14.5); White Blood Count 10.1 K/mm3 (4.5-10.0)
[2021-11-01 07:27] LABS: Alanine Aminotransferase 31 U/L (4-35); Albumin Level 3.5 g/dL (3.5-5.1); Alkaline Phosphatase 156 U/L (38-126); Anion Gap 7 mmol/L (8-16); Aspartate Amino Transferase 35 U/L (14-36); Bilirubin,Total 0.5 mg/dL (0.2-1.3); Blood Urea Nitrogen 21 mg/dL (7-17); Calcium 9.4 mg/dL (8.4-10.2); Carbon Dioxide 26 mmol/L (22-30); Chloride 103 mmol/L (98-107); Estimated CRCL calculation 37 ml/min; Estimated Glomerular Filt Rate 48; Glucose 109 mg/dL (65-110); Sodium 136 mmol/L (137-145)
[2021-11-01] MEDS: polyethylene glycoL 3350 17 GM POWD.PACK PO ×2 (07:36→16:53)
[2021-11-01] MEDS: CYCLOBENZAPRINE HCL 5 MG TABLET PO ×2 (07:36→20:31)
--- NOTE | 2021-11-01 10:25 | P.PNIM_ITS ---
Progress Note: A&P Assessment and Plan (1) Bilateral sacral insufficiency fracture: Qualifiers: Encounter type: initial encounter Qualified Code(s): M84.48XA - Pathological fracture, other site, initial encounter for fracture Code(s): M84.48XA - Pathological fracture, other site, initial encounter for fracture Status: Acute Assessment and Plan: Secondary to fall * Lumbar CT showed evidence of recent sacral insufficiency fractures * Case was discussed with Orthopedic surgery in the ED; recommended weight- bearing as tolerated * Supportive care. Analgesics available as needed * PT and OT * Protected weight-bearing with walker * Planning for placement at [facility] * Vitamin-D levels are sufficient (2) Closed fracture of pubic ramus: Qualifiers: Encounter type: initial encounter Laterality: unspecified laterality Qualified Code(s): S32.599A - Other specified fracture of unspecified pubis, initial encounter for closed fracture Code(s): S32.599A - Other specified fracture of unspecified pubis, initial encounter for closed fracture Status: Acute Assessment and Plan: Lumbar CT showed comminuted fracture of the left inferior pubic ramus * See above (3) Acute urinary retention: Code(s): R33.8 - Other retention of urine Status: Acute Assessment and Plan: Possibly secondary to pain from fracture vs constipation * Urinary catheter was placed in ED and removed 10/30/21; patient was voiding independently * 10/31/2021 patient with decreased urine output, bladder scan showed urinary retention >1000 cc * Ho catheter resumed on 10/31/21 * Continue Flomax * Will hold on voiding trial until constipation is resolved (4) Constipation: Qualifiers: Constipation type: unspecified constipation type Qualified Code(s): K59.00 - Constipation, unspecified Code(s): K59.00 - Constipation, unspecified Status: Acute Assessment and Plan: Last bowel movement 1 week ago. Suspect secondary to pain from sacral fracture * Prominent amount of fecal material throughout the colon without evidence of bowel obstruction on CT * Passed two very small hard balls of stool following enema yesterday but has not had a true bowel movement * Obtain KUB to reassess * MiraLax b.i.d., Colace b.i.d. * Dulcolax suppository * May repeat enema if no improvement in constipation with above therapy or change based on KUB * May be worsened due to narcotics. Patient is not really been taking much narcotic pain medication. Limit as much as possible. (5) Essential hypertension: Code(s): I10 - Essential (primary) hypertension Status: Acute Assessment and Plan: Blood pressure has been well controlled. Last BP 133/66 * Continue home lisinopril * Monitor blood pressure trends (6) Hyperlipidemia, unspecified: Qualifiers: Hyperlipidemia type: mixed hyperlipidemia Qualified Code(s): E78.2 - Mixed hyperlipidemia Code(s): E78.5 - Hyperlipidemia, unspecified Status: Acute Assessment and Plan: LFTs reviewed and are within normal limits. * Continue home rosuvastatin (7) Hypothyroidism, unspecified: Qualifiers: Hypothyroidism type: acquired Qualified Code(s): E03.9 - Hypothyroidism, unspecified Code(s): E03.9 - Hypothyroidism, unspecified Status: Acute Assessment and Plan: Continue home levothyroxine (8) VIVEK (acute kidney injury):
--- NOTE | 2021-11-01 10:25 | PM.IMPN ---
Progress Note: A&P Assessment and Plan (1) Bilateral sacral insufficiency fracture: Qualifiers: Encounter type: initial encounter Qualified Code(s): M84.48XA - Pathological fracture, other site, initial encounter for fracture Code(s): M84.48XA - Pathological fracture, other site, initial encounter for fracture Status: Acute Assessment and Plan: Secondary to fall Lumbar CT showed evidence of recent sacral insufficiency fractures Case was discussed with Orthopedic surgery in the ED; recommended weight-bearing as tolerated Supportive care. Analgesics available as needed PT and OT Protected weight-bearing with walker Planning for placement at [facility] Vitamin-D levels are sufficient (2) Closed fracture of pubic ramus: Qualifiers: Encounter type: initial encounter Laterality: unspecified laterality Qualified Code(s): S32.599A - Other specified fracture of unspecified pubis, initial encounter for closed fracture Code(s): S32.599A - Other specified fracture of unspecified pubis, initial encounter for closed fracture Status: Acute Assessment and Plan: Lumbar CT showed comminuted fracture of the left inferior pubic ramus See above (3) Acute urinary retention: Code(s): R33.8 - Other retention of urine Status: Acute Assessment and Plan: Possibly secondary to pain from fracture vs constipation Urinary catheter was placed in ED and removed 10/30/21; patient was voiding independently 10/31/2021 patient with decreased urine output, bladder scan showed urinary retention >1000 cc Ho catheter resumed on 10/31/21 Continue Flomax Will hold on voiding trial until constipation is resolved (4) Constipation: Qualifiers: Constipation type: unspecified constipation type Qualified Code(s): K59.00 - Constipation, unspecified Code(s): K59.00 - Constipation, unspecified Status: Acute Assessment and Plan: Last bowel movement 1 week ago. Suspect secondary to pain from sacral fracture Prominent amount of fecal material throughout the colon without evidence of bowel obstruction on CT Passed two very small hard balls of stool following enema yesterday but has not had a true bowel movement Obtain KUB to reassess MiraLax b.i.d., Colace b.i.d. Dulcolax suppository May repeat enema if no improvement in constipation with above therapy or change based on KUB May be worsened due to narcotics. Patient is not really been taking much narcotic pain medication. Limit as much as possible. (5) Essential hypertension: Code(s): I10 - Essential (primary) hypertension Status: Acute Assessment and Plan: Blood pressure has been well controlled. Last BP 133/66 Continue home lisinopril Monitor blood pressure trends (6) Hyperlipidemia, unspecified: Qualifiers: Hyperlipidemia type: mixed hyperlipidemia Qualified Code(s): E78.2 - Mixed hyperlipidemia Code(s): E78.5 - Hyperlipidemia, unspecified Status: Acute Assessment and Plan: LFTs reviewed and are within normal limits. Continue home rosuvastatin (7) Hypothyroidism, unspecified: Qualifiers: Hypothyroidism type: acquired Qualified Code(s): E03.9 - Hypothyroidism, unspecified Code(s): E03.9 - Hypothyroidism, unspecified Status: Acute Assessment and Plan: Continue home levothyroxine (8) VIVEK (acute kidney injury): Code(s): N17.9 - Acute kidney failure, unspecified Status: Acute Assessment and Plan: Baseline creatinine appears to be around 1.1-1.2 Creatinine elevated on admission up to 1.9. Likely related to dehydration and improved with IV fluid rehydration Renal function has returned to baseline. Creatinine is 1.1 today. (9) Confusion: Code(s): R41.0 - Disorientation, unspecified Status: Acute Assessment and Plan:
[2021-11-01] MEDS: ENOXAPARIN 40 MG/0.4 ML SYRINGE SUB-Q (10:28)
[2021-11-01] MEDS: TAMSULOSIN HCL 0.4 MG CAPSULE PO (10:28)
[2021-11-01] MEDS: CALCIUM CARBONATE (OSCAL) 500 MG TABLET PO (10:28)
[2021-11-01] MEDS: MULTIVITAMINS THERAPEUTIC TAB (*BKC) 1 TABLET PO (10:28)
[2021-11-01] MEDS: CHOLECALCIFEROL 1,000 UNITS TABLET 1000 UNITS PO (10:28)
[2021-11-01] MEDS: MAGNESIUM 13.5 MG TABLET (250 MG MAG GLUCONATE) PO (10:28)
[2021-11-01] MEDS: lisinopriL 10 MG TABLET PO (10:28)
[2021-11-01] MEDS: ACETAMINOPHEN 325 MG TABLET 650 MG PO ×2 (11:46→16:57)
[2021-11-01] MEDS: BISACODYL 10 MG SUPPOSITORY RECTAL (13:30)
[2021-11-01 14:00] VITALS: BP 139/65; PULSE 92; RESP 14; TEMP 36.5; O2SAT 97
--- NOTE | 2021-11-01 14:31 | PC.NURSE ---
No results from dulcolax suppository given earlier.
[2021-11-01] MEDS: DOCUSATE SODIUM 100 MG CAPSULE PO (20:31)
[2021-11-01] MEDS: ROSUVASTATIN 10 MG TABLET 40 MG PO (20:31)
[2021-11-01 21:29] VITALS: BP 110/59; PULSE 99; RESP 18; TEMP 36.3; O2SAT 95
[2021-11-02 05:08] VITALS: BP 116/56; PULSE 93; RESP 17; TEMP 36.1; O2SAT 98
[2021-11-02] MEDS: LEVOTHYROXINE SODIUM 50 MCG TABLET PO (05:14)
[2021-11-02 05:55] LABS: Hematocrit 35.4 % (37.0-47.0); Hemoglobin 11.8 g/dL (12.0-15.0); Mean Corpuscular HGB Conc 33.3 g/dl (32-36); Mean Corpuscular Hemoglobin 29.2 pg (26-34); Mean Corpuscular Volume 87.6 fl (80-100); Mean Platelet Volume 9.8 fl (7.4-10.4); Platelet Count Result 337 k/mm3 (150-375); Red Blood Count 4.04 M/mm3 (4.2-5.4); Red Cell Distribution Width 13.3 % (11.5-14.5)
[2021-11-02 06:00] LABS: Anion Gap 7 mmol/L (8-16); Blood Urea Nitrogen 25 mg/dL (7-17); Calcium 8.9 mg/dL (8.4-10.2); Carbon Dioxide 26 mmol/L (22-30); Chloride 99 mmol/L (98-107); Estimated CRCL calculation 37 ml/min; Estimated Glomerular Filt Rate 48; Glucose 121 mg/dL (65-110); Sodium 132 mmol/L (137-145)
[2021-11-02] MEDS: ENOXAPARIN 40 MG/0.4 ML SYRINGE SUB-Q (08:24)
[2021-11-02] MEDS: lisinopriL 10 MG TABLET PO (08:25)
[2021-11-02] MEDS: CHOLECALCIFEROL 1,000 UNITS TABLET 1000 UNITS PO (08:25)
[2021-11-02] MEDS: MULTIVITAMINS THERAPEUTIC TAB (*BKC) 1 TABLET PO (08:25)
[2021-11-02] MEDS: TAMSULOSIN HCL 0.4 MG CAPSULE PO (08:25)
[2021-11-02] MEDS: CALCIUM CARBONATE (OSCAL) 500 MG TABLET PO (08:25)
[2021-11-02] MEDS: MAGNESIUM 13.5 MG TABLET (250 MG MAG GLUCONATE) PO (08:26)
[2021-11-02] MEDS: ACETAMINOPHEN 325 MG TABLET 650 MG PO ×3 (08:36→20:06)
--- NOTE | 2021-11-02 11:18 | P.PNIM_ITS ---
Progress Note: A&P Assessment and Plan (1) Bilateral sacral insufficiency fracture: Qualifiers: Encounter type: initial encounter Qualified Code(s): M84.48XA - Pathological fracture, other site, initial encounter for fracture Code(s): M84.48XA - Pathological fracture, other site, initial encounter for fracture Status: Acute Assessment and Plan: Secondary to fall * Lumbar CT showed evidence of recent sacral insufficiency fractures * Case was discussed with Orthopedic surgery in the ED; recommended weight- bearing as tolerated * Supportive care. Analgesics available as needed * PT and OT * Protected weight-bearing with walker * Planning for placement at [facility] * Vitamin-D levels are sufficient (2) Closed fracture of pubic ramus: Qualifiers: Encounter type: initial encounter Laterality: unspecified laterality Qualified Code(s): S32.599A - Other specified fracture of unspecified pubis, initial encounter for closed fracture Code(s): S32.599A - Other specified fracture of unspecified pubis, initial encounter for closed fracture Status: Acute Assessment and Plan: Lumbar CT showed comminuted fracture of the left inferior pubic ramus * See above (3) Acute urinary retention: Code(s): R33.8 - Other retention of urine Status: Acute Assessment and Plan: Possibly secondary to pain from fracture vs constipation * Urinary catheter was placed in ED and removed 10/30/21; patient was voiding independently * 10/31/2021 patient with decreased urine output, bladder scan showed urinary retention >1000 cc * Ho catheter resumed on 10/31/21 * Now that constipation has resolved, will proceed with voiding trial today. * Continue Flomax (4) Constipation: Qualifiers: Constipation type: unspecified constipation type Qualified Code(s): K59.00 - Constipation, unspecified Code(s): K59.00 - Constipation, unspecified Status: Acute Assessment and Plan: Last bowel movement 1 week ago. Suspect secondary to pain from sacral fracture * Prominent amount of fecal material throughout the colon without evidence of bowel obstruction on CT * Repeat KUB on 11/01showed large volume of stool in colon * Received MiraLax b.i.d., Colace b.i.d., Dulcolax suppository, and Fleet enema * Successful with two large bowel movements * Continue with MiraLax and Colace daily and Dulcolax suppository as needed * Limit narcotics (5) Essential hypertension: Code(s): I10 - Essential (primary) hypertension Status: Acute Assessment and Plan: Blood pressure has been well controlled. Last BP 116/56 * Continue home lisinopril * Monitor blood pressure trends (6) Hyperlipidemia, unspecified: Qualifiers: Hyperlipidemia type: mixed hyperlipidemia Qualified Code(s): E78.2 - Mixed hyperlipidemia Code(s): E78.5 - Hyperlipidemia, unspecified Status: Acute Assessment and Plan: LFTs reviewed and are within normal limits. * Continue home rosuvastatin (7) Hypothyroidism, unspecified: Qualifiers: Hypothyroidism type: acquired Qualified Code(s): E03.9 - Hypothyroidism, unspecified Code(s): E03.9 - Hypothyroidism, unspecified Status: Acute Assessment and Plan: Continue home levothyroxine (8) VIVEK (acute kidney injury): Code(s): N17.9 - Acute kidney failure, unspecified Status: Acute Assessment and Plan: Baseline creatinine vignesh
--- NOTE | 2021-11-02 11:18 | PM.IMPN ---
Progress Note: A&P Assessment and Plan (1) Bilateral sacral insufficiency fracture: Qualifiers: Encounter type: initial encounter Qualified Code(s): M84.48XA - Pathological fracture, other site, initial encounter for fracture Code(s): M84.48XA - Pathological fracture, other site, initial encounter for fracture Status: Acute Assessment and Plan: Secondary to fall Lumbar CT showed evidence of recent sacral insufficiency fractures Case was discussed with Orthopedic surgery in the ED; recommended weight-bearing as tolerated Supportive care. Analgesics available as needed PT and OT Protected weight-bearing with walker Planning for placement at [facility] Vitamin-D levels are sufficient (2) Closed fracture of pubic ramus: Qualifiers: Encounter type: initial encounter Laterality: unspecified laterality Qualified Code(s): S32.599A - Other specified fracture of unspecified pubis, initial encounter for closed fracture Code(s): S32.599A - Other specified fracture of unspecified pubis, initial encounter for closed fracture Status: Acute Assessment and Plan: Lumbar CT showed comminuted fracture of the left inferior pubic ramus See above (3) Acute urinary retention: Code(s): R33.8 - Other retention of urine Status: Acute Assessment and Plan: Possibly secondary to pain from fracture vs constipation Urinary catheter was placed in ED and removed 10/30/21; patient was voiding independently 10/31/2021 patient with decreased urine output, bladder scan showed urinary retention >1000 cc Ho catheter resumed on 10/31/21 Now that constipation has resolved, will proceed with voiding trial today. Continue Flomax (4) Constipation: Qualifiers: Constipation type: unspecified constipation type Qualified Code(s): K59.00 - Constipation, unspecified Code(s): K59.00 - Constipation, unspecified Status: Acute Assessment and Plan: Last bowel movement 1 week ago. Suspect secondary to pain from sacral fracture Prominent amount of fecal material throughout the colon without evidence of bowel obstruction on CT Repeat KUB on 11/01showed large volume of stool in colon Received MiraLax b.i.d., Colace b.i.d., Dulcolax suppository, and Fleet enema Successful with two large bowel movements Continue with MiraLax and Colace daily and Dulcolax suppository as needed Limit narcotics (5) Essential hypertension: Code(s): I10 - Essential (primary) hypertension Status: Acute Assessment and Plan: Blood pressure has been well controlled. Last BP 116/56 Continue home lisinopril Monitor blood pressure trends (6) Hyperlipidemia, unspecified: Qualifiers: Hyperlipidemia type: mixed hyperlipidemia Qualified Code(s): E78.2 - Mixed hyperlipidemia Code(s): E78.5 - Hyperlipidemia, unspecified Status: Acute Assessment and Plan: LFTs reviewed and are within normal limits. Continue home rosuvastatin (7) Hypothyroidism, unspecified: Qualifiers: Hypothyroidism type: acquired Qualified Code(s): E03.9 - Hypothyroidism, unspecified Code(s): E03.9 - Hypothyroidism, unspecified Status: Acute Assessment and Plan: Continue home levothyroxine (8) VIVEK (acute kidney injury): Code(s): N17.9 - Acute kidney failure, unspecified Status: Acute Assessment and Plan: Baseline creatinine appears to be around 1.1-1.2 Creatinine elevated on admission up to 1.9. Likely related to dehydration and improved with IV fluid rehydration Renal function has returned to baseline. Creatinine is 1.1 today. (9) Confusion: Code(s): R41.0 - Disorientation, unspecified Status: Acute Assessment and Plan: Previously documented, though not appreciated on my exam No reports of confusion per RN Patient A&O x4 on my enco
[2021-11-02 11:34] LABS: Basophils Absolute Auto 0.1 K/mm3 (0.0-0.1); Basophils Percent Auto 0.4 % (0.2-1.2); Eosinophils Absolute Auto 0.1 K/mm3 (0-0.3); Eosinophils Percent Auto 0.5 % (0-4.4); Hemoglobin 11.9 g/dL (12.0-15.0); Immature Granulocyte Absolute 0.17 K/mm3 (0.00-0.031); Immature Granulocyte Percent A 1.1 % (0-0.5); Lymphocytes Absolute Auto 1.57 K/mm3 (0.9-3.2); Lymphocytes Percent Auto 10.2 % (18.3-44.2); Mean Corpuscular HGB Conc 32.2 g/dl (32-36); Mean Corpuscular Hemoglobin 29.2 pg (26-34); Mean Corpuscular Volume 90.9 fl (80-100); Mean Platelet Volume 10.2 fl (7.4-10.4); Monocytes Percent Auto 6.6 % (2.6-8.5); Neutrophils Absolute Auto 12.5 K/mm3 (1.3-6.7); Neutrophils Percent Auto 81.2 % (45.5-73.1); Platelet Count Result 327 k/mm3 (150-375); Red Blood Count 4.07 M/mm3 (4.2-5.4); Red Cell Distribution Width 13.6 % (11.5-14.5); White Blood Count 15.4 K/mm3 (4.5-10.0)
[2021-11-02 11:59] LABS: Add Urine Microscopic? YES; Appearance Urine Clear (Clear); Bilirubin Urine Negative (Negative); Blood Urine Negative (Negative); Color Urine Amber (Yellow); Glucose Urine UA Negative (Negative); Ketones Urine Negative (Negative); Leukocyte Esterase Ur Trace LEU/UL (Negative); Mucus Urine Moderate /lpf; Nitrate Urine Negative (Negative); Protein Urine 2+ mg/dL (Negative); Specific Grav Ur 1.024 (1.001-1.035); Squamous Epithelial Cell Urine Rare /hpf (Few)
[2021-11-02 14:00] VITALS: BP 92/49; PULSE 102; RESP 16; TEMP 36.4; O2SAT 96
[2021-11-02] MEDS: CYCLOBENZAPRINE HCL 5 MG TABLET PO (20:06)
[2021-11-02] MEDS: CEFDINIR 300 MG CAPSULE PO (20:07)
[2021-11-02] MEDS: ROSUVASTATIN 10 MG TABLET 40 MG PO (20:07)
[2021-11-02 20:13] VITALS: BP 110/49; PULSE 87; RESP 16; TEMP 36.4; O2SAT 97
[2021-11-03 05:54] VITALS: BP 115/53; PULSE 86; RESP 16; TEMP 35.7; O2SAT 98
[2021-11-03] MEDS: LEVOTHYROXINE SODIUM 50 MCG TABLET PO (05:55)
[2021-11-03] MEDS: ACETAMINOPHEN 325 MG TABLET 650 MG PO ×3 (06:05→20:18)
[2021-11-03] MEDS: CYCLOBENZAPRINE HCL 5 MG TABLET PO ×2 (06:05→20:18)
[2021-11-03 06:36] LABS: Basophils Absolute Auto 0.1 K/mm3 (0.0-0.1); Basophils Percent Auto 0.5 % (0.2-1.2); Eosinophils Absolute Auto 0.4 K/mm3 (0-0.3); Eosinophils Percent Auto 2.6 % (0-4.4); Hematocrit 33.3 % (37.0-47.0); Hemoglobin 11.1 g/dL (12.0-15.0); Immature Granulocyte Absolute 0.22 K/mm3 (0.00-0.031); Immature Granulocyte Percent A 1.6 % (0-0.5); Lymphocytes Absolute Auto 2.03 K/mm3 (0.9-3.2); Mean Corpuscular HGB Conc 33.3 g/dl (32-36); Mean Corpuscular Hemoglobin 28.8 pg (26-34); Mean Corpuscular Volume 86.5 fl (80-100); Mean Platelet Volume 9.7 fl (7.4-10.4); Monocytes Absolute Auto 1.2 K/mm3 (0.1-0.6); Monocytes Percent Auto 9.1 % (2.6-8.5); Neutrophils Absolute Auto 9.6 K/mm3 (1.3-6.7); Neutrophils Percent Auto 71.2 % (45.5-73.1); Platelet Count Result 359 k/mm3 (150-375); Red Blood Count 3.85 M/mm3 (4.2-5.4); Red Cell Distribution Width 13.3 % (11.5-14.5); White Blood Count 13.5 K/mm3 (4.5-10.0)
[2021-11-03 06:48] LABS: Anion Gap 8 mmol/L (8-16); Blood Urea Nitrogen 31 mg/dL (7-17); Calcium 8.6 mg/dL (8.4-10.2); Carbon Dioxide 26 mmol/L (22-30); Chloride 99 mmol/L (98-107); Estimated CRCL calculation 32 ml/min; Estimated Glomerular Filt Rate 40; Glucose 109 mg/dL (65-110); Potassium 3.9 mmol/L (3.4-5.0); Sodium 133 mmol/L (137-145)
[2021-11-03] MEDS: DOCUSATE SODIUM 100 MG CAPSULE PO (09:03)
[2021-11-03] MEDS: MULTIVITAMINS THERAPEUTIC TAB (*BKC) 1 TABLET PO (09:04)
[2021-11-03] MEDS: MAGNESIUM 13.5 MG TABLET (250 MG MAG GLUCONATE) PO (09:04)
[2021-11-03] MEDS: CEFDINIR 300 MG CAPSULE PO ×2 (09:04→20:18)
[2021-11-03] MEDS: CALCIUM CARBONATE (OSCAL) 500 MG TABLET PO (09:04)
[2021-11-03] MEDS: TAMSULOSIN HCL 0.4 MG CAPSULE PO (09:04)
[2021-11-03] MEDS: ENOXAPARIN 40 MG/0.4 ML SYRINGE SUB-Q (09:04)
[2021-11-03] MEDS: CHOLECALCIFEROL 1,000 UNITS TABLET 1000 UNITS PO (09:04)
[2021-11-03] MEDS: lisinopriL 10 MG TABLET PO (09:04)
--- NOTE | 2021-11-03 11:45 | PM.DS ---
DS: Admitting Diagnosis Discharge Date 11/03/21 1145 Admitting Diagnosis Urinary obstruction, coccyx fracture, constipation, and UTI DS: Discharge Diagnosis Discharge Diagnosis (1) Bilateral sacral insufficiency fracture: Qualifiers: Encounter type: initial encounter Qualified Code(s): M84.48XA - Pathological fracture, other site, initial encounter for fracture Code(s): M84.48XA - Pathological fracture, other site, initial encounter for fracture Status: Acute Assessment and Plan: Secondary to fall Lumbar CT showed evidence of recent sacral insufficiency fractures Case was discussed with Orthopedic surgery in the ED; recommended weight-bearing as tolerated Supportive care. Analgesics available as needed PT and OT Protected weight-bearing with walker Planning for placement at [facility] Vitamin-D levels are sufficient (2) Closed fracture of pubic ramus: Qualifiers: Encounter type: initial encounter Laterality: unspecified laterality Qualified Code(s): S32.599A - Other specified fracture of unspecified pubis, initial encounter for closed fracture Code(s): S32.599A - Other specified fracture of unspecified pubis, initial encounter for closed fracture Status: Acute Assessment and Plan: Lumbar CT showed comminuted fracture of the left inferior pubic ramus See above (3) Acute urinary retention: Code(s): R33.8 - Other retention of urine Status: Acute Assessment and Plan: Possibly secondary to pain from fracture vs constipation Urinary catheter was placed in ED and removed 10/30/21; patient was voiding independently 10/31/2021 patient with decreased urine output, bladder scan showed urinary retention >1000 cc Ho catheter resumed on 10/31/21 Now that constipation has resolved, will proceed with voiding trial today. Continue Flomax (4) Constipation: Qualifiers: Constipation type: unspecified constipation type Qualified Code(s): K59.00 - Constipation, unspecified Code(s): K59.00 - Constipation, unspecified Status: Acute Assessment and Plan: Last bowel movement 1 week ago. Suspect secondary to pain from sacral fracture Prominent amount of fecal material throughout the colon without evidence of bowel obstruction on CT Repeat KUB on 11/01showed large volume of stool in colon Received MiraLax b.i.d., Colace b.i.d., Dulcolax suppository, and Fleet enema Successful with two large bowel movements Continue with MiraLax and Colace daily and Dulcolax suppository as needed Limit narcotics (5) Essential hypertension: Code(s): I10 - Essential (primary) hypertension Status: Acute Assessment and Plan: Blood pressure has been well controlled. Last BP 115/53 Continue home lisinopril Monitor blood pressure trends (6) Hyperlipidemia, unspecified: Qualifiers: Hyperlipidemia type: mixed hyperlipidemia Qualified Code(s): E78.2 - Mixed hyperlipidemia Code(s): E78.5 - Hyperlipidemia, unspecified Status: Acute Assessment and Plan: LFTs reviewed and are within normal limits. Continue home rosuvastatin (7) Hypothyroidism, unspecified: Qualifiers: Hypothyroidism type: acquired Qualified Code(s): E03.9 - Hypothyroidism, unspecified Code(s): E03.9 - Hypothyroidism, unspecified Status: Acute Assessment and Plan: Continue home levothyroxine (8) VIVEK (acute kidney injury): Code(s): N17.9 - Acute kidney failure, unspecified Status: Acute Assessment and Plan: Baseline creatinine appears to be around 1.1-1.2 Creatinine elevated on admission up to 1.9. Likely related to dehydration and improved with IV fluid rehydration Renal function has returned to baseline. Creatinine is 1.3 today. (9) Confusion: Code(s): R41.0 - Disorientation, unspecified Status: Acute
--- NOTE | 2021-11-03 11:45 | P.DS_ITS ---
DS: Admitting Diagnosis Discharge Date 11/03/21 1145 Admitting Diagnosis Urinary obstruction, coccyx fracture, constipation, and UTI DS: Discharge Diagnosis Discharge Diagnosis (1) Bilateral sacral insufficiency fracture: Qualifiers: Encounter type: initial encounter Qualified Code(s): M84.48XA - Pathological fracture, other site, initial encounter for fracture Code(s): M84.48XA - Pathological fracture, other site, initial encounter for fracture Status: Acute Assessment and Plan: Secondary to fall * Lumbar CT showed evidence of recent sacral insufficiency fractures * Case was discussed with Orthopedic surgery in the ED; recommended weight- bearing as tolerated * Supportive care. Analgesics available as needed * PT and OT * Protected weight-bearing with walker * Planning for placement at [facility] * Vitamin-D levels are sufficient (2) Closed fracture of pubic ramus: Qualifiers: Encounter type: initial encounter Laterality: unspecified laterality Qualified Code(s): S32.599A - Other specified fracture of unspecified pubis, initial encounter for closed fracture Code(s): S32.599A - Other specified fracture of unspecified pubis, initial encounter for closed fracture Status: Acute Assessment and Plan: Lumbar CT showed comminuted fracture of the left inferior pubic ramus * See above (3) Acute urinary retention: Code(s): R33.8 - Other retention of urine Status: Acute Assessment and Plan: Possibly secondary to pain from fracture vs constipation * Urinary catheter was placed in ED and removed 10/30/21; patient was voiding independently * 10/31/2021 patient with decreased urine output, bladder scan showed urinary retention >1000 cc * Ho catheter resumed on 10/31/21 * Now that constipation has resolved, will proceed with voiding trial today. * Continue Flomax (4) Constipation: Qualifiers: Constipation type: unspecified constipation type Qualified Code(s): K59.00 - Constipation, unspecified Code(s): K59.00 - Constipation, unspecified Status: Acute Assessment and Plan: Last bowel movement 1 week ago. Suspect secondary to pain from sacral fracture * Prominent amount of fecal material throughout the colon without evidence of bowel obstruction on CT * Repeat KUB on 11/01showed large volume of stool in colon * Received MiraLax b.i.d., Colace b.i.d., Dulcolax suppository, and Fleet enema * Successful with two large bowel movements * Continue with MiraLax and Colace daily and Dulcolax suppository as needed * Limit narcotics (5) Essential hypertension: Code(s): I10 - Essential (primary) hypertension Status: Acute Assessment and Plan: Blood pressure has been well controlled. Last BP 115/53 * Continue home lisinopril * Monitor blood pressure trends (6) Hyperlipidemia, unspecified: Qualifiers: Hyperlipidemia type: mixed hyperlipidemia Qualified Code(s): E78.2 - Mixed hyperlipidemia Code(s): E78.5 - Hyperlipidemia, unspecified Status: Acute Assessment and Plan: LFTs reviewed and are within normal limits. * Continue home rosuvastatin (7) Hypothyroidism, unspecified: Qualifiers: Hypothyroidism type: acquired Qualified Code(s): E03.9 - Hypothyroidism, unspecified Code(s): E03.9 - Hypothyroidism, unspecified Status: Acute Assessment and Plan: Continue home levothyroxine (8) VIVEK (acute k
[2021-11-03 14:09] LABS: EDCOVIDSCREEN Negative (Negative)
[2021-11-03] MEDS: ROSUVASTATIN 10 MG TABLET 40 MG PO (20:18)
[2021-11-03 20:24] VITALS: BP 111/57; PULSE 87; RESP 16; TEMP 36.5; O2SAT 95
--- NOTE | 2021-11-05 15:02 | PC.NURSE ---
Urine cx is negative. Valeriy Marc NP aware.
== END 2021-11-03 22:55 | DRG 543 ==
LOC: ANHED 18:24 → ANH3MED 19:31
PROVIDERS: Emergency Medicine; Nurse Practitioner; Admitting Provider Family Medicine; Emergency Provider Emergency Medicine; PCP Internal Medicine; Visit Provider Physician Assistant
DX: M80.88XA Other osteoporosis with current pathological fracture, vertebra(e), initial encounter for fracture (principal); N17.9 Acute kidney failure, unspecified; N39.0 Urinary tract infection, site not specified; S32.592A Other specified fracture of left pubis, initial encounter for closed fracture; W18.39XA Other fall on same level, initial encounter; Z20.822 Contact with and (suspected) exposure to COVID-19; R33.8 Other retention of urine; K59.00 Constipation, unspecified; E78.2 Mixed hyperlipidemia; I10 Essential (primary) hypertension; E03.9 Hypothyroidism, unspecified; E86.0 Dehydration; R41.0 Disorientation, unspecified; D72.829 Elevated white blood cell count, unspecified; Z79.899 Other long term (current) drug therapy
CPT/HCPCS: 36415; 72131; 74018; 74176; 80048; 80053; 80076; 81001; 82306; 83690; 83735; 85025; 85027; 87086; 87426; 96361; 96365; 96375; 97110; 97116; 97162; 97166; 97530; 97535; 99285; A9270; C9803; G0378; J0131; J0360; J0696; J1650; J2270; J7030

== ENCOUNTER → 2022-06-11 09:23 | Outpatient (CLI) | payer MEDICARE, SELFPAY ==
--- NOTE | ~2022-06-11 | XR_ITS ---
[id number] 06/11/2022 09:35 Indication: Neck pain Procedure: 4 view cervical spine Comparison: No prior studies for comparison. Findings: There is normal cervical alignment. Limited visualization of the cervicothoracic junction o n the lateral view. No definite fracture or traumatic malalignment. Vertebral body heights are mainta ined. No prevertebral soft tissue swelling. There is moderate multilevel facet hypertrophy. Odontoid process within normal limits. Lung apices are normal. Impression: 1: Mild-moderate cervical spondylosis. Reviewed, dictated and finalized at location B. Impression: 1: Mild-moderate cervical spondylosis.
== END ==
PROVIDERS: PCP Nurse Practitioner; Visit Provider Nurse Practitioner
DX: M54.2 Cervicalgia (principal); M47.812 Spondylosis without myelopathy or radiculopathy, cervical region
CPT/HCPCS: 72040

== ENCOUNTER → 2022-09-08 13:46 | Outpatient (CLI) | payer MEDICARE, SELFPAY ==
--- NOTE | ~2022-09-08 | MM_ITS ---
EXAMINATION: MM screening sonya BI w berny HISTORY: Screening TECHNIQUE: Craniocaudal and mediolateral oblique 3-D tomosynthesis images were obtained and synthetic 2-D images were generated. CAD analysis was submitted and interpreted. COMPARISON: Comparison to multiple prior studies sequentially, with oldest reviewed study dated 04/08. BREAST PARENCHYMAL COMPOSITION: There are scattered areas of fibroglandular density. FINDINGS: There is no evidence of suspicious mass, calcification, or architectural distortion to sugg est malignancy in either breast. There has been no suspicious interval change. IMPRESSION: 1. No mammographic evidence of malignancy. 2. Recommend routine screening mammography in one year. BI-RADS Category 1: Negative Reviewed, dictated and finalized at location A. HANDISE SUPPORT ASSOCIATE
== END ==
PROVIDERS: PCP Internal Medicine; Visit Provider Internal Medicine
DX: Z12.31 Encounter for screening mammogram for malignant neoplasm of breast (principal)
CPT/HCPCS: 77063; 77067

== ENCOUNTER 2023-04-22 09:35 | Outpatient (CLI) | payer MEDICARE, SELFPAY ==
--- NOTE | ~2023-04-22 | DEXA_ITS ---
Bone Density Report Name: LEXII ZAPATA Age: 77 Sex: Female Ethnicity: White Date of : 1945 Indication: postmenopausal; screening for osteoporosis; height loss; prior fracture; Referring Provider: DANA MARINELLI Study: Bone densitometry was performed. Exam Date: April 22, 2023 Accession number: [id number] Bone Density: Region BMD T-score Z-score Classification AP Spine(L1-L4) 0.667 -3.5 -0.9 Osteoporosis Femoral Neck (Left) 0.535 -2.8 -0.6 Osteoporosis Total Hip (Left) 0.701 -2.0 0.0 Osteopenia Femoral Neck (Right) 0.604 -2.2 0.0 Osteopenia Total Hip (Right) 0.719 -1.8 0.2 Osteopenia Total Hip Mean 0.710 -1.9 0.1 Osteopenia World Health Organization criteria for BMD impression classify patients as: Normal (T-score at or above -1.0), Osteopenia (T-score between -1.0 and -2.5), or Osteoporosis (T-score at or below -2.5). 10-year Fracture Risk: FRAX not reported because: Some T-score for Spine Total or Hip Total or Femoral Neck at or below -2.5 Prior hip or vertebral fracture Treated for osteoporosis Clinical Information Provided by Patient: Have had a previous hip or vertebral fracture Has had a low trauma fracture Is being treated for osteoporosis Has used the following medications: Prolia (i.e. denosumab), Vitamin D, Calcium Patient maximum height was 65 Menopause Age: 49 Onset of menses at age 11 Number of children 2 Impression: The patient has established osteoporosis, based on the Total Spine T-score and the existence of a prior fracture. The patient has risk factors, including: previous fracture. Discussion: It is important to ask patients whether they are taking their medications and to encourage continued and appropriate compliance with their osteoporosis therapies to reduce fracture risk. It is also important to review their risk factors and encourage appropriate calcium and vitamin D intakes, exercise, fall prevention and other lifestyle measures. Follow-Up: Consider a repeat BMD and Vertebral Fracture Assessment (VFA) exam in 2 years or sooner if medically necessary, to reassess this patient's status. Reported by: ESDRAS on 04/22/2023 10:01:00 AM. Reviewed, dictated and finalized at location AWilla MACIEL
== END 2023-04-22 09:36 | disposition home or self-care (01) ==
PROVIDERS: PCP Internal Medicine; Visit Provider Internal Medicine Endocrinology, Diabetes & Metabolism
DX: Z78.0 Asymptomatic menopausal state (principal); M81.0 Age-related osteoporosis without current pathological fracture; M85.89 Other specified disorders of bone density and structure, multiple sites
CPT/HCPCS: 77080

== ENCOUNTER 2023-08-25 11:41 | Outpatient (CLI) | payer MEDICARE, SELFPAY ==
[2023-08-25 14:22] LABS: Albumin Level 4.4 g/dL (3.5-5.1); Anion Gap 6 mmol/L (8-16); Blood Urea Nitrogen 34 mg/dL (7-17); Calcium 9.9 mg/dL (8.4-10.2); Carbon Dioxide 29 mmol/L (22-30); Chloride 104 mmol/L (98-107); Estimated Glomerular Filt Rate > 60; Glucose 105 mg/dL (65-110); Phosphorus 3.4 mg/dL (2.5-4.5); Sodium 139 mmol/L (137-145)
[2023-08-25 15:39] LABS: Free T4 Free Thyroxine 2.01 ng/mL (0.78-2.19)
[2023-08-31 14:48] LABS: Osteocalcin 8 ng/mL (8-32)
== END 2023-08-25 11:42 | disposition home or self-care (01) ==
LOC: ANHWCLAB 11:45
PROVIDERS: PCP Family Medicine; Visit Provider Internal Medicine Endocrinology, Diabetes & Metabolism
DX: E03.9 Hypothyroidism, unspecified (principal); M81.0 Age-related osteoporosis without current pathological fracture
CPT/HCPCS: 36415; 80069; 82306; 82523; 83937; 83970; 84439; 84443

== ENCOUNTER 2023-10-29 10:00 | Outpatient (CLI) | payer MEDICARE, SELFPAY ==
--- NOTE | ~2023-10-29 | MM_ITS ---
EXAMINATION: MM screening sonya BI w berny HISTORY: Screening mammogram, family history of breast cancer in her mother. TECHNIQUE: Craniocaudal and mediolateral oblique 3-D tomosynthesis images were obtained and synthetic 2-D images were generated. CAD analysis was submitted and interpreted. COMPARISON: 11/08/2021, 07/02/2021, 06/24/2020 BREAST PARENCHYMAL COMPOSITION: There are scattered areas of fibroglandular density. FINDINGS: RIGHT BREAST: An asymmetry is present in the middle third of the inner breast 4.5 cm from the nipple on the craniocaudal view. LEFT BREAST: No suspicious mass, calcification, or architectural distortion are identified to suggest malignancy. There has been no suspicious interval change. IMPRESSION: 1. Right breast asymmetry. 2. Additional mammographic views and possible breast ultrasound are recommended. BI-RADS Category 0: Incomplete: Needs additional imaging evaluation. Reviewed, dictated and finalized at location A. BASTER IMPRESSION: 1. Right breast asymmetry. 2. Additional mammographic views and possible breast ultrasound are recommended . BI-RADS Category 0: Incomplete: Needs additional imaging evaluation.
== END 2023-10-29 10:01 | disposition home or self-care (01) ==
LOC: ANHIMG 10:02
PROVIDERS: PCP Family Medicine; Visit Provider Family Medicine
DX: Z12.31 Encounter for screening mammogram for malignant neoplasm of breast (principal); R92.8 Other abnormal and inconclusive findings on diagnostic imaging of breast
CPT/HCPCS: 77063; 77067

== ENCOUNTER 2023-11-25 10:28 | Outpatient (CLI) | payer MEDICARE, SELFPAY ==
--- NOTE | ~2023-11-25 | MMUS_ITS ---
EXAMINATION: MM diagnostic sonya RT w berny, US breast RT limited HISTORY: Follow-up right breast asymmetry TECHNIQUE: Additional 3-D tomosynthesis images of the right breast were performed and synthetic 2-D i mages were generated. CAD analysis was submitted and interpreted. High resolution Limited right breas t ultrasound was performed. COMPARISON: Comparison to multiple prior studies sequentially, with oldest reviewed study dated 04/22. BREAST PARENCHYMAL COMPOSITION: Not dense: There are scattered areas of fibroglandular density. FINDINGS: MAMMOGRAPHIC FINDINGS: There are no suspicious masses, calcifications or architectural distortion in the right breast to sug gest malignancy. ULTRASOUND: Limited right breast ultrasound: Normal heterogeneous echotexture without focal solid or cystic mass. IMPRESSION: 1. No evidence for malignancy in the right breast. 2. Routine yearly screening mammogram and regular clinical breast examination are recommended. BI-RADS Category 1: Negative Reviewed, dictated and finalized at location A. MDS COORDINATOR IMPRESSION: 1. No evidence for malignancy in the right breast. 2. Routine yearly screening mammogram and regular clinical breast examination a re recommended. BI-RADS Category 1: Negative
== END 2023-11-25 10:29 | disposition home or self-care (01) ==
PROVIDERS: PCP Family Medicine; Visit Provider Family Medicine
DX: R92.8 Other abnormal and inconclusive findings on diagnostic imaging of breast (principal)
CPT/HCPCS: 76642; 77061; 77065; G0279

== ENCOUNTER 2023-12-22 15:29 | Outpatient (CLI) | payer MEDICARE, SELFPAY ==
--- NOTE | ~2023-12-22 | XR_ITS ---
EXAMINATION: XR_RIBSBI_CR INDICATION: Pleurodynia TECHNIQUE: 3 views of the bilateral ribs were obtained. COMPARISON: None. FINDINGS: There are age-indeterminate, nondisplaced anterolateral fractures of the left third through fifth ribs. There are age indeterminate, minimally displaced anterolateral fractures of the right fi fth, sixth, and seventh ribs. The lungs are free of acute opacities. No pleural effusion or pneumotho rax. The cardiomediastinal silhouette is normal. IMPRESSION: 1. Age-indeterminate bilateral rib fractures. Reviewed, dictated and finalized at location F. T DECORATOR
== END 2023-12-22 15:30 ==
PROVIDERS: PCP Family Medicine; Visit Provider Family Medicine
DX: S22.43XA Multiple fractures of ribs, bilateral, initial encounter for closed fracture (principal); X58.XXXA Exposure to other specified factors, initial encounter
CPT/HCPCS: 71110

== ENCOUNTER 2024-08-15 14:07 | Outpatient (CLI) | payer MEDICARE, SELFPAY ==
[2024-08-15 15:00] LABS: Hematocrit 36.7 % (37.0-47.0); Mean Corpuscular HGB Conc 32.7 g/dl (32-36); Mean Corpuscular Hemoglobin 29.4 pg (26-34); Platelet Count Result 244 k/mm3 (150-375); Red Blood Count 4.08 M/mm3 (4.2-5.4); Red Cell Distribution Width 13.1 % (11.5-14.5); White Blood Count 8.6 K/mm3 (4.5-10.0)
[2024-08-15 16:37] LABS: Alanine Aminotransferase 50 U/L (6-35); Albumin Level 4.3 g/dL (3.5-5.1); Alkaline Phosphatase 64 U/L (38-126); Anion Gap 8 mmol/L (4-12); Aspartate Amino Transferase 53 U/L (14-36); Bilirubin,Total 0.7 mg/dL (0.2-1.3); Blood Urea Nitrogen 31 mg/dL (7-17); Calcium 9.9 mg/dL (8.4-10.2); Carbon Dioxide 29 mmol/L (22-30); Chloride 101 mmol/L (98-107); Cholesterol 202 mg/dL (0-200); Estimated Glomerular Filt Rate 60; Glucose 143 mg/dL (65-110); HDL Direct 82 mg/dL; Sodium 138 mmol/L (137-145); Triglycerides 63 mg/dL (<150)
[2024-08-15 16:48] LABS: LDL Cholesterol Direct 87 mg/dL
== END 2024-08-15 14:08 | disposition home or self-care (01) ==
LOC: ANHLAB 14:09
PROVIDERS: PCP Family Medicine; Visit Provider Internal Medicine Hematology & Oncology
DX: I10 Essential (primary) hypertension (principal); M81.0 Age-related osteoporosis without current pathological fracture; E78.5 Hyperlipidemia, unspecified; E66.9 Obesity, unspecified; M79.18 Myalgia, other site; E03.9 Hypothyroidism, unspecified; E55.9 Vitamin D deficiency, unspecified
CPT/HCPCS: 36415; 80053; 80061; 82306; 84443; 85027

== ENCOUNTER 2024-09-18 13:15 | Emergency (ER) | payer MEDICARE, SELFPAY ==
--- NOTE | ~2024-09-18 | US_ITS ---
EXAMINATION: US pelvic complete w TV DATE: 09/18/2024 23:30 INDICATION: AUB TECHNIQUE: Multiple transabdominal and endovaginal sonographic images of the pelvis were obtained. COMPARISON: None. FINDINGS: Uterus: Retroverted, 8.9 x 4.3 x 5.5 cm. Endometrial complex measures 3 mm. 9 x 5 mm polypoid project ion into the uterine cavity which is distended by small volume fluid. Right Ovary: Not visualized. Left Ovary: Not visualized. There is minimal free fluid in the pelvis. IMPRESSION: 9 x 5 mm polypoid projection into the uterine cavity, likely representing an endometrial polyp. Adher ent clot and focal endometrial hyperplasia/carcinoma should also be considered in the differential. Small volume endometrial fluid, may represent blood. Reviewed, dictated and finalized at location K. LE PHONE SALESPERSON IMPRESSION: 9 x 5 mm polypoid projection into the uterine cavity, likely representing an en dometrial polyp. Adherent clot and focal endometrial hyperplasia/carcinoma shou ld also be considered in the differential. Small volume endometrial fluid, may represent blood.
[2024-09-18 13:33] VITALS: BP 137/59; PULSE 79; RESP 16; TEMP 36.6; O2SAT 97
--- NOTE | 2024-09-18 15:09 | ED.FEMALEGU ---
HPI - Female Genitourinary General Chief complaint: Vaginal Bleeding <JAMEY Carrasco Last Filed: 09/18/24 15:14> Stated complaint: vaginal bleeding <JAMEY Carrasco Last Filed: 09/18/24 15:14> Time Seen by Provider: 09/18/24 15:09 <JAMEY Carrasco Last Filed: 09/18/24 15:14> Focused HPI: Patient is an 79 y/o female who presents to the ED with c/o vaginal bleeding. Patient is a resident of [facility]. Reports she sleeps on a chucks pad and was noted to have bright red bleeding on the pad this morning. Thought to be from her vagina. States she had blood dripping out of her when she took a shower this morning. Patient denies hx of similar episodes. Is not on any anticoagulation. Reports mild dysuria, chronic constipation. Denies abdominal pain, pelvic pain, fevers. GENERAL: Elderly, thin/frail, and in no acute distress. HEAD: Normocephalic, atraumatic. CHEST: Clear to auscultation. ?No respiratory distress. HEART: Regular rate and rhythm.? ABD: No focal tenderness. NEURO: ?Alert and oriented x3. Patient screened in triage and initial orders placed.? ?Additional care and disposition to be based upon?diagnostic testing and treatment. <JAMEY Carrasco Last Filed: 09/18/24 15:14> Source: patient <JAMEY Carrasco Last Filed: 09/18/24 15:14> Mode of arrival: ambulatory <JAMEY Carrasco Last Filed: 09/18/24 15:14> Limitations: no limitations <JAMEY Carrasco Filed: 09/18/24 15:14> Related Data Home medications: Home Medications Medication Instructions Recorded Confirmed polyethylene glycol 3350 17 gram 17 g PO BID PRN constipation 12/19/21 09/06/24 oral powder packet (Miralax) magnesium 250 mg tablet 250 mg PO DAILY 03/01/23 09/06/24 CALCIUM 1 tablet BYMOUTH DAILY 08/25/23 09/06/24 multivitamin (Daily Multi-Vitamin 1 tablet PO DAILY 08/25/23 09/06/24 tablet) romosozumab-aqqg 105 mg/1.17 mL 210 mg subcut MONTHLY 09/06/24 09/06/24 subcutaneous syringe (Evenity) <Avril Turner PA-C - Last Filed: 09/18/24 15:14> Allergies/Adverse reactions: Allergies Allergy/AdvReac Type Severity Reaction Status Date / Time codeine Allergy Unknown Nausea Verified 09/06/24 11:06 tramadol AdvReac Mild Hallucinati Verified 09/06/24 11:06 ng <Avril Turner PA-C - Last Filed: 09/18/24 15:14> Review of Systems Review of Systems: CONSTITUTIONAL: Denies fever GASTROINTESTINAL: Denies abdominal pain GENITOURINARY: Denies dysuria <Ana Luciano PA-C - Last Filed: 09/19/24 00:46> All systems reviewed & are unremarkable except as noted in HPI and below <Ana Luciano PA-C - Last Filed: 09/19/24 00:46> [facility] Past Medical History Medical History: Medical History Cataracts, both eyes Effusion, right knee Essential hypertension Hepatitis A High blood pressure High cholesterol Missed Obesity (BMI 30.0-34.9) Osteoporosis Right knee pain <JAMEY Carrasco Last Filed: 09/18/24 15:14> Surgical History Surgical History: Surgical History History of dilation and curettage History of tonsillectomy <JAMEY Carrasco Last Filed: 09/18/24 15:14> Family History Family History: Family History Father Hypertension Cerebrovascular accident Mother Family history of malignant neoplasm of breast in first degree relative Other High cholesterol Scleroderma <JAMEY Carrasco Last Filed: 09/18/24 15:14> Social History Social History: Social History Social History: Patient lives at home by herself since her of CHF in August of 2020. Patient has 2 adult boys with 4 grandchildren. She denies having any pets and her son Brenden who lives here should be called 1st Carlos A 2nd for surrogate. 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 Patient wishes to be a full code however she does not want any long-term ventilation intubation or prolongation of life. 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 HEAD: Normocephalic, atraumatic. EYES: EOMI. CHEST: Clear to auscultation. No respiratory distress. No wheezes rales or rhonchi HEART: Regular rate and rhythm. No murmur heard. Normal peripheral pulses. ABDOMEN: Soft, nontender, nondistended, normal active bowel sounds. EXTREMITIES: Normal range of motion. No edema. SKIN: Warm, dry, no rash. NEURO: No focal deficits. Alert and oriented x3. PSYCH: Normal mood and affect PELVIC: Small amount of light red blood in the vaginal vault <JAMEY Alexander Last Filed: 09/19/24 00:46> Course Course Emergency Course: Patient and family updated on workup and agree with plan of care <Ana Luciano PA-C - Last Filed: 09/19/24 00:46> Vital Signs Vital signs: Vital Signs Temperature 98 F 09/18/24 13:33 Pulse Rate 79 09/18/24 13:33 Respiratory Rate 16 09/18/24 13:33 Blood Pressure 137/59 L 09/18/24 13:33 Pulse Oximetry 97 09/18/24 13:33 Temperature 98 F 09/18/24 13:33 Pulse Rate 73 09/19/24 00:37 Respiratory Rate 14 09/19/24 00:37 Blood Pressure 134/63 09/19/24 00:37 Pulse Oximetry 99 09/19/24 00:37 <Avril Turner PA-C - Last Filed: 09/18/24 15:14> Vital Signs Temperature 98 F 09/18/24 13:33 Pulse Rate 79 09/18/24 13:33 Respiratory Rate 16 09/18/24 13:33 Blood Pressure 137/59 L 09/18/24 13:33 Pulse Oximetry 97 09/18/24 13:33 Temperature 98 F 09/18/24 13:33 Pulse Rate 73 09/19/24 00:37 Respiratory Rate 14 09/19/24 00:37 Blood Pressure 134/63 09/19/24 00:37 Pulse Oximetry 99 09/19/24 00:37 <Ana Luciano PA-C - Last Filed: 09/19/24 00:46> MDM - Female Genitourinary MDM Narrative Medical decision making narrative: MSE by YSABEL in triage. <JAMEY Carrasco Last Filed: 09/18/24 15:14> MSE by YSABEL in triage. Patient presents to the emergency for postmenopausal bleeding. She is afebrile and nontoxic appearing. Her vitals are stable. Hemoglobin is normal. Metabolic panel without concerning findings. Urine with possible infection. This will be sent for culture. Small amount of bleeding noted on exam. Ultrasound shows an endometrial polyp. Patient family updated on workup and agree with plan of care. Will be given follow-up with gynecology for further evaluation. They were given warnings to return to the ER <JAMEY Alexander Last Filed: 09/19/24 00:46> Differential Diagnosis Differential diagnosis: Likely urinary tract infection and other (AUB, endometrial cancer, cervical cancer) <Ana Luciano PA-C - Last Filed: 09/19/24 00:46> Lab Data Attestation: I reviewed the patient's lab results. <Ana Luciano PA-C - Last Filed: 09/19/24 00:46> Result diagrams: 09/18/24 15:18 09/18/24 15:18 <Avril Turner PA-C - Last Filed: 09/18/24 15:14> Labs: Lab Results 09/18/24 09/18/24 Range/Units 15:18 22:26 WBC 8.0 (4.5-10.0) K/mm3 RBC 4.16 L (4.2-5.4) M/mm3 Hgb 12.3 (12.0-15.0) g/dL Hct 38.9 (37.0-47.0) % MCV 93.5 (80-100) fl MCH 29.6 (26-34) pg MCHC 31.6 L (32-36) g/dl RDW 13.1 (11.5-14.5) % Plt Count 207 (150-375) k/mm3 MPV 10.6 H (7.4-10.4) fl Immature Gran % (Auto) 0.6 H (0-0.5) % Neut % (Auto) 64.3 (45.5-73.1) % Lymph % (Auto) 23.5 (18.3-44.2) % [place] % (Auto) 8.5 (2.6-8.5) % Eos % (Auto) 2.5 (0-4.4) % Baso % (Auto) 0.6 (0.2-1.2) % Lymph # (Auto) 1.87 (0.9-3.2) K/mm3 [place] # (Auto) 0.7 H (0.1-0.6) K/mm3 Eos # (Auto) 0.2 (0-0.3) K/mm3 Baso # (Auto) 0.1 (0.0-0.1) K/mm3 Abs Immat Gran (auto) 0.05 H (0.00-0.031) K/mm3 Absolute Neuts (auto) 5.1 (1.3-6.7) K/mm3 Absolute Nucleated RBC 0.000 (0.0-0.012) K/mm3 Nucleated RBC % 0.0 (0.0-0.2) % Platelet Estimate Adequate (Adequate) % Immature Plt Fraction 4.6 (0.9-11.2) % Schistocytes None seen PT 13.6 (11.1-14.7) Seconds INR 1.0 APTT 21.2 L (22.3-36.8) Seconds Sodium 138 (137-145) mmol/L Potassium 4.5 (3.4-5.0) mmol/L Chloride 108 H (98-107) mmol/L Carbon Dioxide 23 (22-30) mmol/L Anion Gap 7 (4-12) mmol/L BUN 26 H (7-17) mg/dL Creatinine 0.70 (0.7-1.0) mg/dL Estim Creat Clear Calc 46 ml/min Estimated GFR > 60 (59 - ) Glucose 117 H (65-110) mg/dL Calcium 9.4 (8.4-10.2) mg/dL Total Bilirubin 0.7 (0.2-1.3) mg/dL AST 40 H (14-36) U/L ALT 29 (6-35) U/L Alkaline Phosphatase 46 (38-126) U/L Total Protein 7.0 (6.3-8.2) g/dL Albumin 4.1 (3.5-5.1) g/dL Urine Color Yellow (Yellow) Urine Appearance Cloudy H (Clear) Urine pH 7.0 (5.0-9.0) Ur Specific [place] 1.021 (1.001-1.035) Urine Protein Trace (Negative) mg/dL Urine Glucose (UA) Negative (Negative) mg/dL Urine Ketones Negative (Negative) mg/dL Ur Blood (Man) 3+ H (Negative) Urine Nitrate Negative (Negative) Urine Bilirubin Negative (Negative) Urine Urobilinogen 1.0 (<2.0) mg/dL Leukocyte Esterase Rfl 1+ H (Negative) DENISE/UL Urine RBC >100 H (0-2) /hpf Urine WBC 11-20 H (0-3) /hpf Ur Squamous Epith Cells None seen (Few) /hpf Urine Bacteria None seen /hpf Urine Casts 0-2 <Avril Turner PA-C - Last Filed: 09/18/24 15:14> Lab Results 09/18/24 09/18/24 Range/Units 15:18 22:26 WBC 8.0 (4.5-10.0) K/mm3 RBC 4.16 L (4.2-5.4) M/mm3 Hgb 12.3 (12.0-15.0) g/dL Hct 38.9 (37.0-47.0) % MCV 93.5 (80-100) fl MCH 29.6 (26-34) pg MCHC 31.6 L (32-36) g/dl RDW 13.1 (11.5-14.5) % Plt Count 207 (150-375) k/mm3 MPV 10.6 H (7.4-10.4) fl Immature Gran % (Auto) 0.6 H (0-0.5) % Neut % (Auto) 64.3 (45.5-73.1) % Lymph % (Auto) 23.5 (18.3-44.2) % [place] % (Auto) 8.5 (2.6-8.5) % Eos % (Auto) 2.5 (0-4.4) % Baso % (Auto) 0.6 (0.2-1.2) % Lymph # (Auto) 1.87 (0.9-3.2) K/mm3 [place] # (Auto) 0.7 H (0.1-0.6) K/mm3 Eos # (Auto) 0.2 (0-0.3) K/mm3 Baso # (Auto) 0.1 (0.0-0.1) K/mm3 Abs Immat Gran (auto) 0.05 H (0.00-0.031) K/mm3 Absolute Neuts (auto) 5.1 (1.3-6.7) K/mm3 Absolute Nucleated RBC 0.000 (0.0-0.012) K/mm3 Nucleated RBC % 0.0 (0.0-0.2) % Platelet Estimate Adequate (Adequate) % Immature Plt Fraction 4.6 (0.9-11.2) % Schistocytes None seen PT 13.6 (11.1-14.7) Seconds INR 1.0 APTT 21.2 L (22.3-36.8) Seconds Sodium 138 (137-145) mmol/L Potassium 4.5 (3.4-5.0) mmol/L Chloride 108 H (98-107) mmol/L Carbon Dioxide 23 (22-30) mmol/L Anion Gap 7 (4-12) mmol/L BUN 26 H (7-17) mg/dL Creatinine 0.70 (0.7-1.0) mg/dL Estim Creat Clear Calc 46 ml/min Estimated GFR > 60 (59 - ) Glucose 117 H (65-110) mg/dL Calcium 9.4 (8.4-10.2) mg/dL Total Bilirubin 0.7 (0.2-1.3) mg/dL AST 40 H (14-36) U/L ALT 29 (6-35) U/L Alkaline Phosphatase 46 (38-126) U/L Total Protein 7.0 (6.3-8.2) g/dL Albumin 4.1 (3.5-5.1) g/dL Urine Color Yellow (Yellow) Urine Appearance Cloudy H (Clear) Urine pH 7.0 (5.0-9.0) Ur Specific [place] 1.021 (1.001-1.035) Urine Protein Trace (Negative) mg/dL Urine Glucose (UA) Negative (Negative) mg/dL Urine Ketones Negative (Negative) mg/dL Ur Blood (Man) 3+ H (Negative) Urine Nitrate Negative (Negative) Urine Bilirubin Negative (Negative) Urine Urobilinogen 1.0 (<2.0) mg/dL Leukocyte Esterase Rfl 1+ H (Negative) DENISE/UL Urine RBC >100 H (0-2) /hpf Urine WBC 11-20 H (0-3) /hpf Ur Squamous Epith Cells None seen (Few) /hpf Urine Bacteria None seen /hpf Urine Casts 0-2 <Ana Luciano PA-C - Last Filed: 09/19/24 00:46> Imaging Data Radiologist's impression: ITS Impressions Pelvic/Transvag US 09/18/24 23:31 IMPRESSION: 9 x 5 mm polypoid projection into the uterine cavity, likely representing an endometrial polyp. Adherent clot and focal endometrial hyperplasia/carcinoma should also be considered in the differential. Small volume endometrial fluid, may represent blood. <Ana Luciano PA-C - Last Filed: 09/19/24 00:46> Critical Care Time Critical Care Time Critical Care Time: No <JAMEY Alexander Last Filed: 09/19/24 00:46> Discharge Plan Discharge Clinical Impression: Endometrial polyp, Pyuria <JAMEY Carrasco Last Filed: 09/18/24 15:14> Patient Disposition: Home, Self-Care <JAMEY Carrasco Last Filed: 09/18/24 15:14> Condition: Stable <JAMEY Carrasco Last Filed: 09/18/24 15:14> Instructions: Antibiotic Form, Urinary Tract Infection in Older Adults (ED), Endometrial Polyps (DC) <JAMEY Carrasco Last Filed: 09/18/24 15:14> Additional Instructions: Return to the ER if you experience fever, abdominal pain with nausea and vomiting, you are unable to keep down liquids or solids, or any other symptoms that are concerning to you Your ultrasound today showed an endometrial polyp. You also had some white blood cells in your urine, I have sent an antibiotic to the pharmacy for a possible UTI Follow up with gynecology (Dr. Gabriel) for further evaluation of your bleeding <JAMEY Carrasco Last Filed: 09/18/24 15:14> Prescriptions: New cephalexin 500 mg capsule 500 mg PO Q12H 5 Days Qty: 10 0RF No Action polyethylene glycol 3350 [Miralax] 17 gram powder in packet 17 g PO BID PRN (Reason: constipation) magnesium 250 mg tablet 250 mg PO DAILY CALCIUM 500 mg 1 tablet BYMOUTH DAILY Rx Instructions: OTC multivitamin [Daily Multi-Vitamin] Tablet 1 tablet PO DAILY Evenity 105 mg/1.17 mL syringe 210 mg subcut MONTHLY levothyroxine 75 mcg tablet See Rx Instructions .ROUTE .COMPLEX Qty: 90 1RF Dose Instruction: Take 1 tablet by mouth once daily Rx Instructions: Take 1 tablet by mouth once daily donepezil 10 mg tablet 10 mg PO QHS Qty: 90 1RF rosuvastatin 20 mg tablet See Rx Instructions .ROUTE .COMPLEX Qty: 90 1RF Hold Instructions: till blood work Dose Instruction: Take 1 tablet by mouth once daily Rx Instructions: Take 1 tablet by mouth once daily lisinopril 5 mg tablet See Rx Instructions .ROUTE .COMPLEX Qty: 90 0RF Dose Instruction: Take 1 tablet by mouth once daily Rx Instructions: Take 1 tablet by mouth once daily sertraline 50 mg tablet See Rx Instructions .ROUTE .COMPLEX Qty: 180 0RF Dose Instruction: Take 1 tablet by mouth twice daily Rx Instructions: Take 1 tablet by mouth twice daily <Avril Turner PA-C - Last Filed: 09/18/24 15:14> Follow-up/Referrals: Cosme Boyd MD [Primary Care Provider] - Mary Gabriel MD [Physician] - <Avril Turner PA-C - Last Filed: 09/18/24 15:14>
[2024-09-18 15:30] LABS: Basophils Absolute Auto 0.1 K/mm3 (0.0-0.1); Basophils Percent Auto 0.6 % (0.2-1.2); Eosinophils Absolute Auto 0.2 K/mm3 (0-0.3); Eosinophils Percent Auto 2.5 % (0-4.4); Hematocrit 38.9 % (37.0-47.0); Hemoglobin 12.3 g/dL (12.0-15.0); Immature Granulocyte Absolute 0.05 K/mm3 (0.00-0.031); Immature Granulocyte Percent A 0.6 % (0-0.5); Immature Platelet Fraction Pct 4.6 % (0.9-11.2); Lymphocytes Absolute Auto 1.87 K/mm3 (0.9-3.2); Lymphocytes Percent Auto 23.5 % (18.3-44.2); Mean Corpuscular HGB Conc 31.6 g/dl (32-36); Mean Corpuscular Hemoglobin 29.6 pg (26-34); Mean Corpuscular Volume 93.5 fl (80-100); Mean Platelet Volume 10.6 fl (7.4-10.4); Monocytes Absolute Auto 0.7 K/mm3 (0.1-0.6); Monocytes Percent Auto 8.5 % (2.6-8.5); Neutrophils Absolute Auto 5.1 K/mm3 (1.3-6.7); Neutrophils Percent Auto 64.3 % (45.5-73.1); Platelet Count Result 207 k/mm3 (150-375); Red Blood Count 4.16 M/mm3 (4.2-5.4); Red Cell Distribution Width 13.1 % (11.5-14.5)
[2024-09-18 15:38] LABS: Prothrombin Time 13.6 Seconds (11.1-14.7)
[2024-09-18 15:39] LABS: Partial Thromboplastin Time 21.2 Seconds (22.3-36.8)
[2024-09-18 16:12] LABS: Alanine Aminotransferase 29 U/L (6-35); Albumin Level 4.1 g/dL (3.5-5.1); Alkaline Phosphatase 46 U/L (38-126); Anion Gap 7 mmol/L (4-12); Aspartate Amino Transferase 40 U/L (14-36); Bilirubin,Total 0.7 mg/dL (0.2-1.3); Blood Urea Nitrogen 26 mg/dL (7-17); Calcium 9.4 mg/dL (8.4-10.2); Carbon Dioxide 23 mmol/L (22-30); Chloride 108 mmol/L (98-107); Estimated CRCL calculation 46 ml/min; Estimated Glomerular Filt Rate > 60; Glucose 117 mg/dL (65-110); Potassium 4.5 mmol/L (3.4-5.0); Sodium 138 mmol/L (137-145)
[2024-09-18 16:21] LABS: Platelet Estimate Adequate (Adequate); Schistocytes None Seen
[2024-09-18 22:34] LABS: Add Urine Microscopic? YES; Appearance Urine Cloudy (Clear); Bacteria Urine None Seen /hpf; Bilirubin Urine Negative (Negative); Blood Urine 3+ (Negative); Color Urine Yellow (Yellow); Glucose Urine UA Negative (Negative); Ketones Urine Negative (Negative); Leukocyte Esterase Ur 1+ LEU/UL (Negative); Nitrate Urine Negative (Negative); Non Pathogenic Casts 0-2; Protein Urine Trace mg/dL (Negative); RBC Urine >100 /hpf (0-2); Specific Grav Ur 1.021 (1.001-1.035); Squamous Epithelial Cell Urine None Seen /hpf (Few)
[2024-09-19 00:37] VITALS: BP 134/63; PULSE 73; RESP 14; O2SAT 99
[2024-09-19 00:38] VITALS: BP 134/63; PULSE 73; RESP 14; O2SAT 99
== END 2024-09-19 00:47 | disposition home or self-care (01) ==
PROVIDERS: Physician Assistant; Emergency Provider Physician Assistant; PCP Family Medicine
DX: N84.0 Polyp of corpus uteri (principal); R82.81 Pyuria; I10 Essential (primary) hypertension; E78.00 Pure hypercholesterolemia, unspecified; H26.9 Unspecified cataract; M81.0 Age-related osteoporosis without current pathological fracture; Z79.899 Other long term (current) drug therapy
CPT/HCPCS: 36415; 76830; 76856; 80053; 81001; 85025; 85055; 85610; 85730; 87086; 99284

== ENCOUNTER 2024-10-20 09:53 | Outpatient (CLI) | payer MEDICARE, SELFPAY ==
--- NOTE | ~2024-10-20 | XR_ITS ---
3 VIEWS LUMBAR SPINE Ordering provider: Radha Reid MD History: . evaluate vertebral fracture . Comparison: None. FINDINGS: VERTEBRAL BODIES:Lucency in the posterior superior corner of L4 is not excluded. CT evaluation is adv ised. Sclerotic changes are seen in the lateral view over S1. DISK SPACES: Narrowing of the disc L5-S1. Facet joint disease at the level of L4-L5 and L5-S1. SOFT TISSUES: Normal. Bilateral sacroiliacs. IMPRESSION: Lucency seen in the posterior superior corner of L4. CT evaluation advised. Sclerotic changes seen in the area of S1 as seen in the lateral view. CT evaluation advised. Reviewed, dictated and finalized at location A. RANS REHABILITATION COUNSELOR IMPRESSION: Lucency seen in the posterior superior corner of L4. CT evaluation advised. Scl erotic changes seen in the area of S1 as seen in the lateral view. CT evaluatio n advised.
--- NOTE | ~2024-10-20 | XR_ITS ---
3 VIEWS THORACIC SPINE Ordering provider: Radha Reid MD History: . evaluate fracture . Comparison: None. FINDINGS: VERTEBRAL BODIES: Severe kyphosis with about 70% loss of volume of C7. Otherwise Normal height and al ignment. No visible fracture or subluxation. Degenerative changes of the spine. DISK SPACES: Multilevel degenerative disc disease in the lower thoracic area. SOFT TISSUES: Slight cardiomegaly with emphysematous changes of the lungs. Healed fractures are seen in the ribs of the right mid thorax. IMPRESSION: severe compression fracture of T7 most likely chronic. Degenerative changes of the spine with multilevel degenerative disc disease. Reviewed, dictated and finalized at location A. NDER PRESS OPERATOR APPRENTICE
== END 2024-10-20 09:54 | disposition home or self-care (01) ==
LOC: MICIMG 09:53
PROVIDERS: PCP Family Medicine; Visit Provider Internal Medicine Endocrinology, Diabetes & Metabolism
DX: M80.08XA Age-related osteoporosis with current pathological fracture, vertebra(e), initial encounter for fracture (principal); M51.34 Other intervertebral disc degeneration, thoracic region; M48.061 Spinal stenosis, lumbar region without neurogenic claudication; M47.816 Spondylosis without myelopathy or radiculopathy, lumbar region; M47.817 Spondylosis without myelopathy or radiculopathy, lumbosacral region; M89.9 Disorder of bone, unspecified
CPT/HCPCS: 72072; 72100

== ENCOUNTER 2024-10-31 00:20 | Day surgery (SDC) | payer MEDICARE, SELFPAY ==
--- NOTE | 2024-10-12 14:39 | PC.NURSE ---
Report to the Outpatient Waiting Room, entrance under the green pavilion located off [facility], at time _8:30 AM on date __10/31/23 . Planned Procedure Time: _10:30 AM .? Time changes happen often and if your time is changed the preop area will call you the afternoon before. - You and your visitor will be asked to self-screen and do not enter if you have any COVID symptoms. Please call surgeon if you need to reschedule. - A mask is optional within the hospital at this time. Patients may have clear liquids (water, carbonated beverages, clear teas, apple juice) until 3 hours prior to surgery( 7:30 AM) with a maximum of 20 ounces. - No food from midnight until time of surgery and no smoking. This includes no chewing gum, candy or mints. - Infants may have breast milk until 4 hours before surgery, infant formula 6 hours prior to surgery. - Children will be allowed to drink immediately following surgery.? If applicable, please bring a bottle or sippy cup to assist with drinking. Juice, water, soda, and popsicles are readily available.? For infants on formula, please bring formula the day of surgery.? Pacifiers are allowed. Take only the following medications with a SIP of water on the morning of surgery: __LEVOTHYROXINE,SERTRALINE DO NOT STOP ANY OF YOUR OTHER PRESCRIPTION MEDICATIONS PRIOR TO SURGERY EXCEPT THE FOLLOWING Medications to discontinue per physician HOLD ALL VITAMINS AND SUPPLEMENTS 3 DAYS PREOP Date to take last dose__10/27/24 Please no make-up, nail hebrew, hairspray, perfume, deodorant, or body powder the day of surgery.? No jewelry (including any body piercings) or valuables the day of surgery, leave them at home.? Please take a shower or bath the night before, or the morning of, surgery with an antibacterial soap.? Wear comfortable, loose fitting clothing.? Children are encouraged to wear pajamas. - Jewelry must be removed prior to entering the operating room.? Rings and piercings that are not removed may be cut off. - The hospital will not accept responsibility for valuables.? - Please leave all valuables, including medications, at home the day of surgery. If you are going home after surgery, a licensed van driver must drive you home.? - NO public transportation without another adult if you receive anesthesia. - We recommend that an adult stay with you for 24 hours following discharge. - We also recommend that you do not drive, make important decision, drink alcoholic beverages, or take any drugs that were not prescribed by your health care provider for at least 24 hours after your discharge time. For Pediatric surgeries, we recommend two adults accompany the child home. Follow any additional instructions given to you from your surgeon. Telephone instructions given to _DIANA CHU AND MONI FROM [facility] and asked if any additional questions and then verbalized understanding. Patient advised to call surgeon office or pre surgery nurse liaison [phone] if any additional questions.
[2024-10-12 14:42] VITALS: BMI 21.9
--- NOTE | 2024-10-31 09:29 | P.HP_ITS ---
H&P: HPI History of Present Illness Date/Time: 10/31/24 09:29 Chief Complaint: Vaginal bleeding Narrative: 79-year-old female with postmenopausal bleeding and endometrial polyp we have agreed to perform hysteroscopy D and C with possible polypectomy The patient understands the details of the procedure. The procedure has been explained in detail. She understands the risks. She understands that injuries may occur that result in hospitalization, more surgery, and severe illness. She understands risk of hemorrhage and infection. She denies any chest pain or shortness of breath. She denies any nausea, vomiting, fever, chills. Review of Systems Review of Systems: All systems reviewed & are unremarkable except as noted in HPI and below Constitutional: Constitutional: Denies chills, Denies fatigue, Denies fever(s) and Denies weakness Eyes: Eyes: Denies blurry vision, Denies change in vision, Denies loss of peripheral vision, Denies loss of vision, Denies other visual disturbances and Denies eye pain ENT: Denies vertigo, Denies dizziness, Denies hearing loss, Denies mouth pain, Denies nasal obstruction, Denies neck mass and Denies neck pain Cardiovascular: Cardiovascular: Denies chest pain, Denies diaphoresis, Denies syncope, Denies leg edema and Denies dyspnea Respiratory: Respiratory: Denies chest congestion, Denies cough, Denies hemoptysis, Denies dyspnea and Denies wheezing Gastrointestinal: Gastrointestinal: Denies abdominal pain, Denies constipation, Denies diarrhea, Denies nausea and Denies vomiting Genitourinary: Genitourinary: Denies hematuria, Denies change in libido, Denies nocturia, Denies genital lesions, Denies flank pain and Denies urinary urgency Musculoskeletal: Musculoskeletal: Denies abnormal gait, Denies back pain, Denies myalgias, Denies arthralgias, Denies joint swelling, Denies muscle weakness and Denies neck pain Integumentary/Breasts: Skin/Breast: Denies swelling, Denies breast pain, Denies breast mass, Denies dry skin, Denies nipple discharge, Denies unusual bruising and Denies jaundice Neurologic: Denies Neuro-related abnormal movements, Denies Abnormal speech present, Denies abnormal gait, Denies behavioral changes, Denies confusion, Denies vertigo, Denies dizziness, Denies syncope, Denies loss of vision, Denies memory loss, Denies convulsions and Denies weakness Psychiatric: Psychiatric: Denies abnormal sleep pattern, Denies behavioral changes, Denies change in libido, Denies confusion, Denies depression, Denies anhedonia and Denies memory loss Endocrine: Endocrine: Reports no additional endocrine complaints, Denies change in libido and Denies fatigue Hematologic/Lymphatic: Hematologic/Lymphatic: Reports no additional hematologic/lymphatic complaints Allergic/Immunologic: Allergic/Immunologic: Reports no additional allergic/immunologic complaints and Denies wheezing PMFSH Past Medical History Medical History Cataracts, both eyes Effusion, right knee Essential hypertension Hepatitis A High blood pressure High cholesterol Missed Obesity (BMI 30.0-34.9) Osteoporosis Right knee pain Surgical History Surgical History History of dilation and curettage History of tonsillectomy Family History Family History Father Hypertension Cerebrovascular accident Mother Family history of malignant neoplasm of breast in first degree relative Other High cholesterol Scleroderma Social History Social History Social History: Patient lives at home by herself since her of CHF in August of 2020. Patient has 2 adult boys with 4 grandchildren. She denies having any pets and her son Brenden who lives here should be called 1st Carlos A 2nd for surrogate. 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 Patient wishes to be a full code however she does not want any long-term ventilation intubation or prolongation of life. 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 Gender identity (if verbalized by the patient): Female Sexual Orientation (if Verbalized by the Patient): Straight or Heterosexual Spiritual care concerns: No Agree to blood products: Yes Meds Home Medications and Allergies Home Medications ?Medication ?Instructions ?Recorded ?Confirmed ?Type polyethylene glycol 3350 17 gram 17 g PO BID PRN constipation 12/19/21 10/12/24 History oral powder packet (Miralax) magnesium 250 mg tablet 250 mg PO DAILY 03/01/23 10/12/24 History CALCIUM 1 tablet BYMOUTH DAILY 08/25/23 10/12/24 History multivitamin (Daily Multi-Vitamin 1 tablet PO DAILY 08/25/23 10/12/24 History tablet) levothyroxine 75 mcg tablet See Rx Instructions .Route 05/16/24 10/12/24 Rx .COMPLEX #90 tabs donepezil 10 mg tablet 10 mg PO QHS #90 tabs 06/29/24 10/12/24 Rx rosuvastatin 20 mg tablet See Rx Instructions .Route 08/11/24 10/12/24 Rx .COMPLEX #90 tabs lisinopril 5 mg tablet See Rx Instructions .Route 08/25/24 10/12/24 Rx .COMPLEX #90 tabs sertraline 50 mg tablet See Rx Instructions .Route 09/04/24 10/12/24 Rx .COMPLEX #180 tabs romosozumab-aqqg 105 mg/1.17 mL 210 mg subcut MONTHLY 09/06/24 10/12/24 History subcutaneous syringe (Evenity) cephalexin 500 mg capsule 500 mg PO Q12H 5 days #10 caps 09/18/24 10/12/24 Rx Allergies Allergy/AdvReac Type Severity Reaction Status Date / Time tramadol AdvReac Mild Hallucinati Verified 10/12/24 14:27 ng codeine AdvReac Unknown Nausea Verified 10/31/24 08:11 Exam Const: General: cooperative, healthy appearing, comfortable and no acute distress Orientation/consciousness: oriented to person, oriented to place and oriented to time HENMT: Head: normal to inspection Ears: external ears normal Face/Nose/Sinus: Normal external nose present and normal facial exam Face and sinus: normal facial exam Eyes: General: appearance normal, both eyes and all related structures Neck: Neck: normal visual inspection, trachea midline and supple Resp: Auscultation: clear to auscultation bilaterally, no crackles, no rales, no rhonchi and no wheezes Cardio: Rate: regular rate Rhythm: regular rhythm Heart sounds: no click, no murmurs and no rubs GI: GI Palp: No abdominal tenderness, No Soft to palpation, No Tenderness to palpation present (GI) and No Palpable mass present Auscultation: normal bowel sounds Skin: General skin exam: normal color and no rashes or lesions noted Neuro: General: oriented to person, oriented to place and oriented to time Extrem: General: normal to inspection, no joint enlargement, no clubbing, cyanosis or edema, no pedal edema and no calf tenderness Psych: Appearance: grossly normal Mental Status: mental status grossly normal Speech and movement: Normal speech and movement present Assessment and Plan Assessment and plan (1) Postmenopausal bleeding: Code(s): N95.0 - Postmenopausal bleeding Status: Acute (2) Endometrial polyp: Code(s): N84.0 - Polyp of corpus uteri Status: Acute Plan This patient is an 79-year-old female with endometrial polyp and postmenopausal bleeding. We have agreed to perform hysteroscopy, D and C with possible polypectomy. She understands the procedure. She understands risks, benefits, and alternatives. She has completed the informed consent process and is ready to proceed.
--- NOTE | 2024-10-31 09:34 | WPDHPUPDATE1 ---
History and Physical Update Update Date/Time: 10/31/24 09:34 History and Physical has been reviewed, including an updated exam of the patient. There are NO changes in the patient's condition. Risks, benefits, and alternatives have been discussed and questions answered. Patient agrees to proceed with procedure.
--- NOTE | 2024-10-31 09:37 | P.PNAN_ITS ---
Anes - Initial Pre Proc Eval Procedure: Operation Date: 10/31/24 10:30 Proposed Procedures p Hysteroscopy with Biopsy Endometrium and/or Polypectomy - Jourdan Caballero MD Date/Time: 10/31/24 09:37 Surgeon: Jourdan Caballero MD Pre Op Diagnosis: Endometrial Polyp Patient Data Age: 79 Gender: F Height: 1.57 m Weight: 54.45 kg Allergies Allergy/AdvReac Type Severity Reaction Status Date / Time tramadol AdvReac Mild Hallucinati Verified 10/12/24 14:27 ng codeine AdvReac Unknown Nausea Verified 10/31/24 08:11 Home Medications ?Medication ?Instructions ?Recorded ?Confirmed ?Type polyethylene glycol 3350 17 gram 17 g PO BID PRN constipation 12/19/21 10/12/24 History oral powder packet (Miralax) magnesium 250 mg tablet 250 mg PO DAILY 03/01/23 10/12/24 History CALCIUM 1 tablet BYMOUTH DAILY 08/25/23 10/12/24 History multivitamin (Daily Multi-Vitamin 1 tablet PO DAILY 08/25/23 10/12/24 History tablet) levothyroxine 75 mcg tablet See Rx Instructions .Route 05/16/24 10/12/24 Rx .COMPLEX #90 tabs donepezil 10 mg tablet 10 mg PO QHS #90 tabs 06/29/24 10/12/24 Rx rosuvastatin 20 mg tablet See Rx Instructions .Route 08/11/24 10/12/24 Rx .COMPLEX #90 tabs lisinopril 5 mg tablet See Rx Instructions .Route 08/25/24 10/12/24 Rx .COMPLEX #90 tabs sertraline 50 mg tablet See Rx Instructions .Route 09/04/24 10/12/24 Rx .COMPLEX #180 tabs romosozumab-aqqg 105 mg/1.17 mL 210 mg subcut MONTHLY 09/06/24 10/12/24 History subcutaneous syringe (Evenity) cephalexin 500 mg capsule 500 mg PO Q12H 5 days #10 caps 09/18/24 10/12/24 Rx Patient hx anesthesia problems: none Family hx anesthesia problems: none Results Review: All pre-operative results and documents have been reviewed as part of the pre- operative evaluation. [facility] Past Medical History Medical History Missed High cholesterol Obesity (BMI 30.0-34.9) Essential hypertension Effusion, right knee Right knee pain Osteoporosis Hepatitis A High blood pressure Cataracts, both eyes Surgical History Surgical History History of dilation and curettage History of tonsillectomy Family History Family History Father Hypertension Cerebrovascular accident Mother Family history of malignant neoplasm of breast in first degree relative Other High cholesterol Scleroderma Social History Social History Social History: Patient lives at home by herself since her of CHF in August of 2020. Patient has 2 adult boys with 4 grandchildren. She denies having any pets and her son Brenden who lives here should be called 1st Carlos A 2nd f or surrogate. 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 Patient wishes to be a full code however she does not want any long-term ventilation intubation or prolongation of life. 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 Gender identity (if verbalized by the patient): Female Sexual Orientation (if Verbalized by the Patient): Straight or Heterosexual Spiritual care concerns: No Agree to blood products: Yes Anes - Eval Final PreProcedure Day of Procedure 10/31/24 09:37 Patient weight: normal Heart: regular rate and rhythm Lungs: clear to auscultation Airway: Mallampati scale class II Neurological: alert and oriented Last oral intake: >/= 8 hours ASA classification: III Emergent: no Anesthetic plan: proceed Anesthesia type and monitoring: general GIVS and standard monitoring Results Review: All pre-operative results and documents have been reviewed as part of the pre- operative evaluation. Informed Consent: The patient's anesthetic plan and its attendant risks and benefits were discussed with the patient/family/POA. Questions were solicited and answers provided to the satisfaction of the patient/family/POA.
[2024-10-31 09:39] VITALS: BP 130/60; PULSE 70; TEMP 37.1; O2SAT 97; BMI 22.4
[2024-10-31] MEDS: ACETAMINOPHEN 500 MG TABLET 1000 MG PO (09:42)
[2024-10-31] MEDS: LACTATED RINGERS 1,000 ML 30 ML IV CONT (09:42)
[2024-10-31] MEDS: LIDOCAINE 1% LOCAL INJ 10 ML VIAL INFILTRATE (10:03)
[2024-10-31 10:27] VITALS: BP 134/62; PULSE 64; RESP 14; O2SAT 100
--- NOTE | 2024-10-31 10:36 | W.PM.PROC2 ---
Procedure Note - Detailed Date of Procedure 10/31/24 Pre-op Diagnosis Endometrial Polyp Post-op Diagnosis Same Procedure Performed Hysteroscopy D&C Surgeon Jourdan Caballero MD Anesthesia MAC Indications abnormal uterine bleeding Findings Submucous fibroid in the anterior wall, 2 cm. Normal vulva, vagina, cervix. Description of Procedure the patient was taken the operating room. She was prepped and draped in the dorsal lithotomy position after induction of mac anesthesia. A speculum was placed in the vagina. The cervix was grasped with a tenaculum. The cervix was dilated about 1 cm. The hysteroscope was inserted. The intrauterine cavity and endocervix were evaluated. Hysteroscope was withdrawn. A medium-size curette was used to curettage all the surfaces were within the endometrial cavity. The rotational blade was then used to resect the fibroid. It was partially resected. The fibroid was tenacious. The sample was collected on Telfa and sent to pathology. The hysteroscope was reinserted and the above findings were noted. Patient tolerated the procedure well. The speculum and tenaculum were removed. She was taken recovery room in stable condition. Sponge lap and needle counts were correct x2. Estimated Blood Loss 10 Drains No Packing No Pathology Yes Complications No immediate complications Condition Stable Disposition PACU
[2024-10-31 10:55] VITALS: BP 132/62; PULSE 63; RESP 20
[2024-10-31 11:10] VITALS: BP 143/66; PULSE 63; RESP 20
--- OUTSIDE RECORDS SUMMARY | 2024-11-06 08:42 | XMS_ITS | Continuity of Care Document ---
Author Organization [facility] Address [address] [place] [address] Care Team Providers Care Meal Cook Name Role Phone JENNIFER MULLEN Primary Care Provider Assessment Encounter Date Assessment Date Assessment LastModified by Organization Details LastModified Time 10/05/2024 10/05/2024 This patient is an 79-year-old female presents for postmenopausal bleeding and endometrial polyp. She was evaluated in emergency department. Pelvic ultrasound revealed endometrial polyp. We discussed the standard of care. I gave them my recommendation. I recommend hysteroscopy D&C to rule out endometrial cancer and to remove endometrial polyp. She had unknown under sedation. This is a delicate 79-year-old female. Patient agreed. The patient understands the procedure. The procedure was described to the patient in great detail. the patient also understands the risks. The risks were also explained in detail. She understands that injuries May occur during surgery. She understands these injuries can result in hospitalization, more surgery, and severe illness. She understands there is risk of hemorrhage and infection. [email or web address] Not available 10/05/2024 11:49:30 Plan of Treatment Reminders Order Date Submit Date Provider Last Modified By Organization Details Last Modified Time Details Appointments None recorded. Lab None recorded. Referral None recorded. Procedures None recorded. Surgeries hysteroscop y, surgical, with biopsy of endometrium and/or polypectomy (SURG) 2023 025 [facility], [address] [address], [place], [address], 13:19:26 Imaging None recorded. Medication Orders None recorded. Patient TargetsNo targets recorded. Patient InstructionsNo instructions recorded. Reason for Referral None Reported. Problems Name Problem SNOMED Code Status Onset Date Resolution Date Notes Provider Name and Address Organization Details Recorded Time Speciali rudyd medical examinat ion Active 2014 Gynecolog ical Examinati on;Record ed Elsewhere : No Locati on: [facility] So urce: EHR Chron ic: N Practic e ID: 0001 Bill able Time: 02:00:00 PM Not Available [facility] 0 17:04:47 Adult health examinat ion Active 2014 ROUTINE MEDICAL EXAM;Spenser rded Elsewhere : No Locati on: [facility] So urce: EHR Chron ic: N Practic e ID: 0001 Bill able Time: 02:00:00 PM Not Available [facility] 0 17:04:[address] Concept Active 2015 Well woman check w/o abnormal finding;R ecorded Elsewhere : No Locati on: [facility] So urce: EHR Chron ic: N Practic e ID: 0001 Bill able Time: 01:00:00 PM Not Available [facility] 0 17:04:[address] Concept Active 2015 Encntr for general adult medical exam w/o abnormal findings; Recorded Elsewhere : No Locati on: [facility] So urce: EHR Chron ic: N Practic e ID: 0001 Bill able Time: 01:00:00 PM Not Available [facility] 0 17:04:47 Osteopor osis 61086158 Active 2010 Osteoporo sis;Recor ded Elsewhere : No Locati on: [facility] So urce: EHR Chron ic: N Practic e ID: 0001 Bill able Time: 10:30:00 AM Not Available [facility] 0 17:04:47 Screenin g for malignan t neoplasm of rectum Completed 201107/12/2012 Screening for malignant neoplasms of the rectum;Re corded Elsewhere : No Locati on: [facility] So urce: EHR Chron ic: N Practic e ID: 0001 Bill able Time: 10:00:00 AM Not Available [facility] 0 17:04:47 Screenin g for malignan t neoplasm of cervix Active 2010 Screening for malignant neoplasms of the cervix;Re corded Elsewhere : No Locati on: [facility] So urce: EHR Chron ic: N Practic e ID: 0001 Bill able Time: 10:30:00 AM Not Available [facility] 0 17:04:47 Screenin g for malignan t neoplasm of rectum Active 2015 Encounter for screening for malignant neoplasm of rectum;Re corded Elsewhere : No Locati on: [facility] So urce: EHR Chron ic: N Practic e ID: 0001 Bill able Time: 01:00:00 PM Not Available [facility] 0 17:04:47 Speciali zed medical examinat ion Completed 201007/12/2012 Gynecolog ical Examinati on;Record ed Elsewhere : No Locati on: [facility] So urce: EHR Chron ic: N Practic e ID: 0001 Bill able Time: 10:30:00 AM Not Available [facility] 0 17:04:48 Problem Notes None recorded. Procedures Surgical History Date Name Laterality Status Provider Name and Address Organization Details Recorded Time 5 HYSTEROSCOPY, SURGICAL, WITH BIOPSY OF ENDOMETRIUM AND/OR POLYPECTOMY (SURG) completed Elma Perrin [facility] 10/31/2024 13:56:01 5 Date of Last Pap Smear completed Magdalena Tubbs [facility] 10/05/2024 11:20:48 Imaging Results None recorded. Procedure Notes None recorded. Medical Equipment None Reported. Allergies Allergen ID Allergen Name Allergen Category Reaction Reaction Severity Criticality Documentation Date Start Date Code Code System Note Provider Name and Address Organization Details Recorded Time 88724 tramadol medicatio n Not available Not available Not available 10/05/2024 89891 RxNorm Magdalena nunez [facility] 4 11:14:00 18459 codeine medicatio n Not available Not available Not available 10/05/2024 2670 RxNorm Magdalena nunez [facility] 11:14:06 Medications Name Sig Start Date Stop Date Status Note LastModified by Organization Details LastModified Time donepezil 5 mg tablet TAKE 1 TABLET BY MOUTH AT BEDTIME FOR 6 WEEKS, THEN INCREASE TO TWO TABLETS DAILY 10/05 completed Not Available Not Available Not Available donepezil 10 mg tablet TAKE 1 TABLET BY MOUTH ONCE DAILY AT BEDTIME active Not Available Not Available No t Available meloxicam 15 mg tablet TAKE 1 TABLET BY MOUTH ONCE DAILY 10/05 completed Not Available Not Available Not Available levothyro xine 75 mcg tablet TAKE 1 TABLET BY MOUTH ONCE DAILY active Not Available Not Available No t Available pravastat in 10 mg tablet 10/05 completed Prescrib ed Elsewher e: Yes Loca tion: [facility] odify By: carlton maya DateTime : 07/13/20 13 09:30:00 AM Not Available Not Available Not Available Actonel 5 mg tablet take 1 tablet by oral route every day in the morning, at least 30 minutes before the first food, beverage , or medicati on of the day 07/13 completed Prescrib ed Elsewher e: Yes Loca tion: [facility] odify By: carlton maya DateTime : 07/04/20 11 03:32:21 PM Not Available Not Available Not Available cephalexi n 500 mg capsule TAKE 1 CAPSULE BY MOUTH EVERY 12 HOURS FOR 5 DAYS 10/05 completed Not Available Not Available Not Available quinapril 5 mg tablet take 1 tablet by oral route 2 times every day 07/18 completed Prescrib ed Elsewher e: Yes Loca tion: [facility] odify By: jet noland DateTime : 07/08/20 11 10:30:00 AM Not Available Not Available Not Available sertralin e 25 mg tablet TAKE 1 TABLET BY MOUTH TWICE DAILY 10/05 completed Not Available Not Available Not Available lisinopri l 5 mg tablet TAKE 1 TABLET BY MOUTH ONCE DAILY active Not Available Not Available No t Available sertralin e 50 mg tablet TAKE 1 TABLET BY MOUTH TWICE DAILY active Not Available Not Available No t Available lisinopri l 2.5 mg tablet take 1 tablet by oral route every day 10/05 completed Prescrib ed Elsewher e: Yes Loca tion: [facility] odify By: jet noland DateTime : 07/18/20 15 02:00:00 PM Not Available Not Available Not Available Vitamins and Minerals tablet active Prescrib ed Elsewher e: Yes Loca tion: [facility] odify By: dandy noland DateTime : 07/08/20 11 10:30:00 AM Not Available Not Available Not Available rosuvasta tin 20 mg tablet TAKE 1 TABLET BY MOUTH ONCE DAILY active Not Available Not Available No t Available nitrofura ntoin monohydra te/macroc rystals 100 mg capsule TAKE 1 CAPSULE BY MOUTH EVERY 12 HOURS FOR 5 DAYS. MUST ADMINIST ER WITH A MEAL/TON D 10/05 completed Not Available Not Available Not Available Actonel 150 mg tablet take 1 tablet (150MG) by oral route every month with full glass f water and stay in upright position for 30 minutes 07/13 completed Prescrib ed Elsewher e: No Locat ion: [facility] odify By: carlton maya DateTime : 07/12/20 12 10:00:00 AM Not Available Not Available Not Available Tirosint 50 mcg capsule 10/05 completed Prescrib ed Elsewher e: Yes Loca tion: [facility] odify By: carlton maya DateTime : 07/13/20 13 09:30:00 AM Not Available Not Available Not Available Vitals Date Recorded Body height Body mass index (BMI) Body weight Systolic blood pressure Diastolic blood pressure Provider Name and Address Organization Details Last Updated DateTime 10/05/2024 162.56 cm 20.8 kg/m2 93824.68 g 124 mm[Hg] 70 mm[Hg] Magdalena Tubbs [facility] 4 11:13:52 Social History Question Answer Notes LastModified by Organizat ion Details LastModified Time In The 14 Days Before Symptom Onset, Have You Had Close Contact With A Laboratory-confirmed COVID-19 While That Case Was Ill? No Information not available 10/05/2024 In The 14 Days Before Symptom Onset, Have You Had Close Contact With A Person Who Is Under Investigation For COVID-19 While That Person Was Ill? No Information not available 10/05/2024 Have You Been To An Area Known To Be High Risk For COVID-19? No Information not available 10/05/2024 Sex: Unknown Functional Status None recorded. Mental Status None recorded. Family History Relationship Description Onset Age of this Age Resolved Age Notes LastModified by Organization Details LastModified Time Mother Malignant tumor of breast Not available 2023 11:24:13 Father Hypertensive disorder Not available 2023 11:24:25 Notes:Father: Anuerysm, Hype rtension Mother: Cancer, breast Medical History Condition Response Allergies (Food, seasonal, environmental ) N Other N Breast Cancer N Drug/Latex Allergies/Reactions N Blood Transfusion N Dermatologic Disorders N Lung Disease N Defects or Inherited Disease N Breast Problem N Gestational Diabetes N Hematologic disorders N Anesthesia Complications N History of STI Y Deep Vein Thrombosis N Polycystic ovary syndrome N Anxiety Disorder Y Autoimmune disease N Arthritis N Infertility N Polyps N Acid Reflux (GERD) N History of abnormal pap N Cancer N Stroke N Varicosities N Neurologic/Epilepsy N Endometriosis N High Cholesterol Y Headaches N Fibromyalgia N Kidney Disease N Heart Problems N Kidney or Bladder Problems N Thyroid Problems Y GI Problems N Eating Disorder N Anemia N Art (IVF or FET) N Psychiatric Illness N Ovarian Cancer N Diabetes N Pulmonary (TB, Asthma) N Hepatitis/Liver Disease N No Past Medical History N Eczema N Urinary Tract Infection N Abuse/Domestic Violence N Asthma N Trauma/Violence N Depression/ depression Y Heart Disease N Pre-Eclampsia N Hypertension N Osteoporosis N Thrombophilias N Gynecological History Statement/Question Response Abnormal Pap N Date of Last Mammogram On BCP's at Conception? N Was last menstrual period normal Y STIs/STDs N HPV Vaccine N Current Control Method Menopause If Post Menopausal, Age at Menopause Are cycles usually normal Y Date of Last Colonoscopy Most Recent Bone Density Sexually Active? N Menses Monthly N Date of Last Pap Smear 07/18/2015 Sexual Problems? N LMP Unknown Obstetrics History GPAL:G 2 P 0 0 0 2 Type Value Living 2 Total 2 Past Encounters Encounter ID Performer Location Encounter Start Date Encounter Closed Date Diagnosis/Indication Diagnosis SNOMED-CT Code Diagnosis ICD10 Code Diagnosis Note [id number] Jourdan Caballero MD [place] [address] [address] 10/05/2024 10:42:28 10/05/2024 11:50:46 Postmenopausal bleeding 87517572 N95.0 Endometrial polyp 600370 3575 N84.0 Health Concerns Section Related Observation LastModified by Organization Detai ls LastModified Time None Recorded Concern Status LastModified by Organization Details LastModified Time None Recorded Payers Encounter Date Sequence Insurance Name Policy Number Policy Hendrickson Covered Member ID Hendrickson Member ID Guarantor Name 10/05/2024 1 [place]ARE[place] Michaelle Velvet Lopez [id number] Michaelle Verdin Lopez 10/05/2024 2 [employer] HE[employer] OPTIONS (MEDICARE SUPPLEMENT) Michaelle A Lopez [id number] Michaelle Lopez Notes Date Note Type Note Provider Name and Address Organization Details Recorded Time 10/05/2024 text/html This patient is an 79-year-old female presents for postmenopausal bleeding and endometrial polyp. She was evaluated in emergency department. Pelvic ultrasound revealed endometrial polyp. We discussed the standard of care. I gave them my recommendation. I recommend hysteroscopy D&C to rule out endometrial cancer and to remove endometrial polyp. She had unknown under sedation. This is a delicate 79-year-old female. Patient agreed. The patient understands the procedure. The procedure was described to the patient in great detail. the patient also understands the risks. The risks were also explained in detail. She understands that injuries May occur during surgery. She understands these injuries can result in hospitalization, more surgery, and severe illness. She understands there is risk of hemorrhage and infection. Jourdan Caballero MD [address], [place], [address], [place] [facility] 10/05/2024 11:50:18 OBGyn Episode No OBEpisode recorded.
--- OUTSIDE RECORDS SUMMARY | 2024-11-06 08:42 | XMS_ITS | Data Portability ---
Author Organization [facility] Address [address] [place] [address] Care Team Providers Care Infection Control Nurse Name Role Phone JENNIFER MULLEN Primary Care Provider [phone] Assessment Encounter Date Assessment Date Assessment LastModified [...] of endometrium and/or polypectomy (SURG) 2023 025 [facility], [facility] [address], [place], [address], 13:19:26 Imaging None recorded. Medication Orders None recorded. Patient TargetsNo targets recorded. Patient InstructionsNo instructions recorded. Reason for Referral None Reported. Results Created Date Observation Date Name Description Value Unit Range Abnormal Flag Note LastModifiedBy Organization Detail LastModifiedTime Result Notes None recorded. Problems Name Problem SNOMED Code Status Onset Date Resolution Date Notes Provider Name and Address Organization Details Recorded Time Nicole sloan medical examinat ion Active 2014 Gynecolog ical Examinati on;Record ed Elsewhere : No Locati on: [facility] So urce: EHR Chron ic: N Practic e ID: 0001 Bill able Time: 02:00:00 PM Not Available [facility] 0 17:04:47 Adult health examinat ion Active 2014 ROUTINE MEDICAL EXAM;Spenser rded Elsewhere : No Locati on: [facility] So urce: EHR Chron ic: N Practic e ID: 0001 Bill able Time: 02:00:00 PM Not Available [facility] 0 17:04:[address] Concept Active 2015 Well woman check w/o abnormal finding;R ecorded Elsewhere : No Locati on: [facility] So urce: EHR Chron ic: N Practic e ID: 0001 Bill able Time: 01:00:00 PM Not Available [facility] 0 17:04:[address] Concept Active 2015 Encntr for general adult medical exam w/o abnormal findings; Recorded Elsewhere : No Locati on: [facility] So urce: EHR Chron ic: N Practic e ID: 0001 Bill able Time: 01:00:00 PM Not Available [facility] 0 17:04:47 Osteopor osis [id number] Active 2010 Osteoporo sis;Recor ded Elsewhere : No Locati on: [facility] So urce: EHR Chron ic: N Practic e ID: 0001 Bill able Time: 10:30:00 AM Not Available [facility] 0 17:04:47 Screenin g for malignan t neoplasm of rectum Completed 201107/12/2012 Screening for malignant neoplasms of the rectum;Re corded Elsewhere : No Locati on: [facility] So urce: EHR Chron ic: N Practic e ID: 0001 Bill able Time: 10:00:00 AM Not Available [facility] 0 17:04:47 Screenin g for malignan t neoplasm of cervix Active 2010 Screening for malignant neoplasms of the cervix;Re corded Elsewhere : No Locati on: [facility] So urce: EHR Chron ic: N Practic e ID: 0001 Bill able Time: 10:30:00 AM Not Available [facility] 0 17:04:47 Screenin g for malignan t neoplasm of rectum Active 2015 Encounter for screening for malignant neoplasm of rectum;Re corded Elsewhere : No Locati on: [facility] So urce: EHR Chron ic: N Practic e ID: 0001 Bill able Time: 01:00:00 PM Not Available [facility] 0 17:04:47 Speciali zed medical examinat ion Completed 201007/12/2012 Gynecolog ical Examinati on;Record ed Elsewhere : No Locati on: [facility] So urce: EHR Chron ic: N Practic e ID: 0001 Bill able Time: 10:30:00 AM Not Available [facility] 0 17:04:48 Problem Notes None recorded. Procedures Surgical History Date Name Laterality Status Provider Name and Address Organization Details Recorded Time 5 HYSTEROSCOPY, SURGICAL, WITH BIOPSY OF ENDOMETRIUM AND/OR POLYPECTOMY (SURG) completed Elma Perrin [facility] 10/31/2024 13:56:01 5 Date of Last Pap Smear completed Magdalena Tubbs [facility] 10/05/2024 11:20:48 Imaging Results None recorded. Procedure Notes None recorded. Medical Equipment None Reported. Allergies Allergen ID Allergen Name Allergen Category Reaction Reaction Severity Criticality Documentation Date Start Date Code Code System Note Provider Name and Address Organization Details Recorded Time 00898 tramadol medicatio n Not available Not available Not available 10/05/2024 78733 RxNorm Magdalena nunez [facility] 4 11:14:00 78515 codeine medicatio n Not available Not available Not available 10/05/2024 2670 RxNorm Magdalena Owenser [place], [place] - [facility] 4 11:14:06 Medications Name Sig Start Date Stop [...] Prescrib ed Elsewher e: Yes Loca tion: [facility] odify By: carlton maya DateTime : 07/13/20 13 09:30:00 AM Not Available Not Available Not Available Actonel 5 mg tablet take 1 tablet by oral route every day in the morning, at least 30 minutes before the first food, beverage , or medicati on of the day 07/13 completed Prescrib ed Elsewher e: Yes Loca tion: [facility] odify By: carlton maya DateTime : 07/04/20 11 03:32:21 PM Not Available Not Available Not Available cephalexi n 500 mg capsule TAKE 1 CAPSULE BY MOUTH EVERY 12 HOURS FOR 5 DAYS 10/05 completed Not Available Not Available Not Available quinapril 5 mg tablet take 1 tablet by oral route 2 times every day 07/18 completed Prescrib ed Elsewher e: Yes Loca tion: [facility] odify By: jet noland DateTime : 07/08/20 [...] Prescrib ed Elsewher e: Yes Loca tion: [facility] odify By: jet noland DateTime : 07/18/20 15 02:00:00 PM Not Available Not Available Not Available Vitamins and Minerals tablet active Prescrib ed Elsewher e: Yes Loca tion: [facility] odify By: dandy noland DateTime : 07/08/20 [...] Prescrib ed Elsewher e: No Locat ion: [facility] odify By: carlton maya DateTime : 07/12/20 12 10:00:00 AM Not Available Not Available Not Available Tirosint 50 mcg capsule 10/05 completed Prescrib ed Elsewher e: Yes Loca tion: [facility] odify By: carlton maya DateTime : 07/13/20 13 09:30:00 AM Not Available Not Available Not Available Vitals Date Recorded Body height Body mass index (BMI) Body weight Systolic blood pressure Diastolic blood pressure Provider Name and Address Organization Details Last Updated DateTime 10/05/2024 162.56 cm 20.8 kg/m2 57684.68 g 124 mm[Hg] 70 mm[Hg] Magdalena Tubbs [place] [facility] 4 11:13:52 Social History Question Answer [...] SNOMED-CT Code Diagnosis ICD10 Code Diagnosis Note [id number] Jourdan Caballero MD [place] [address] [address] 10/05/2024 10:42:28 10/05/2024 11:50:46 Postmenopausal bleeding 51664080 N95.0 Endometrial polyp 385948 8738 N84.0 Health Concerns Section Related Observation LastModified by Organization Detai ls LastModified Time None Recorded Concern Status LastModified by Organization Details LastModified Time None Recorded Advance Directives Directive None Recorded Payers Encounter Date Sequence Insurance Name Policy Number Policy Hendrickson Covered Member ID Hendrickson Member ID Guarantor Name 10/05/2024 1 [place] Michaelle Mckinneyran [id number] Michaelle Verdin Lopez 10/05/2024 2 [employer] HEALTHCARE OPTIONS (MEDICARE SUPPLEMENT) Michaelle Verdin Lopez [id number] Michaelle A Lopez Notes Date Note Type Note Provider [...] hemorrhage and infection. Jourdan Caballero MD [address], [place], [address], [facility] 10/05/2024 11:50:18 OBGyn Episode Ob Episode Information Episode Created Date Number of Fetuses Patient Bloodtype Patient rh Status Prepregnancy Weight lbs Domestic Partner Domestic Partner Phone Father Name Labeling Specialist Status 10/05/20 24 1 CLOSED Fetus Data First Name Last Name Admitted to NICU Weight (g) Sex Living Outcome Pediatric Complications Fetus ID Race Codes Race Delivery Type M Full Term [id number] Vaginal Delivery Danis Calculation Initial Danis Date Initial Exam Date Initial Exam Provider Initial Ultrasound Date Last Menstrual Period Date Ultra Sound Weeks Gestation 0 Eighteen To Twenty Week Danis Update Ultra Sound Date Fundal Height At Umbil Quickening Date Ultra Sound Latest Weeks Gestation Final Danis Confirmed By Final Danis Confirmed Date Final Danis Date Ultra Sound Latest Days Gestation 0 0 Menstrual History Last Menstrual Date Menses Monthly On Bcp Conception Prior Menses Frequency Hcg Plus Date Menarche Onset Age Delivery Information Delivery Date Delivery Type Labor Anesthesia Weeks Gestation Incision Type Labor Labor Length Hrs Delivered By Post Complications Tubal Sterilization Discharge Date Comments 5 Discharge Information Feeding Method Contraceptive Method Maternal HG B and HCT Levels Ob Episode Information Episode Created Date Number of Fetuses Patient Bloodtype Patient rh Status Prepregnancy Weight lbs Domestic Partner Domestic Partner Phone Father Name Labeling Specialist Status 10/05/20 24 1 CLOSED Fetus Data First Name Last Name Admitted to NICU Weight (g) Sex Living Outcome Pediatric Complications Fetus ID Race Codes Race Delivery Type M Full Term [id number] Vaginal Delivery Danis Calculation Initial Danis Date Initial Exam Date Initial Exam Provider Initial Ultrasound Date Last Menstrual Period Date Ultra Sound Weeks Gestation 0 Eighteen To Twenty Week Danis Update Ultra Sound Date Fundal Height At Umbil Quickening Date Ultra Sound Latest Weeks Gestation Final Danis Confirmed By Final Danis Confirmed Date Final Danis Date Ultra Sound Latest Days Gestation 0 0 Menstrual History Last Menstrual Date Menses Monthly On Bcp Conception Prior Menses Frequency Hcg Plus Date Menarche Onset Age Delivery Information Delivery Date Delivery Type Labor Anesthesia Weeks Gestation Incision Type Labor Labor Length Hrs Delivered By Post Complications Tubal Sterilization Discharge Date Comments 3 Discharge Information Feeding Method Contraceptive Method Maternal HG B and HCT Levels
--- OUTSIDE RECORDS SUMMARY | 2024-11-06 08:47 | XMS_ITS | Continuity of Care Document ---
Author Organization [facility] Address [address] [place] [address] Care Team Providers Care Continuing Education Specialist Name Role Phone Cosme Boyd MD Primary Care Provider Cosme Boyd MD Attending Provider [phone] Agus Serarto MD Attending Provider Radha Reid MD Attending Provider Ana Luciano PA-C Emergency Provider Care Teams Patient Care Team Team Status: Active Member Role Status Dates Cosme Boyd MD Primary Care Provider Active Visit Care Team Team Status: Active Member Role Status Aníbal Reid MD Primary Care Provider Active Agus Serrato MD Attending Provider Active Visit Care Team Team Status: Inactive Member Role Status Aníbal Boyd MD Primary Care Provide r, Attending Provider, Referring Provider Active Visit Care Team Team Status: Inactive Member Role Status Aníbal Reid MD Attending Provider Active Cosme Boyd MD Referring Provider Active Visit Care Team Team Status: Inactive Member Role Status Aníbal Boyd MD Attending Provider, Referring Prov ider Active Visit Care Team Team Status: Inactive Member Role Status Aníbal Boyd MD Primary Care Provider Active Agus Serrato MD Attending Provider Active Visit Care Team Team Status: Inactive Member Role Status Dates Cosme Boyd MD Primary Care Provider Active Ana Luciano PA-C Emergency Provider Active Chief Complaint and Reason for Visit Chief Complaint Admit Date Osteoporosis March 29, 2024 1:18p m Wellness Exam July 27, 2024 2: 17pm labs August 15, 2024 2 :07pm Osteoporosis September 06, 2024 10:58am Treatment September 12, 2024 12:00pm vaginal bleeding September 18, 2024 1:15pm Reason for Visit Admit Date Epigastric pain March 29, 2024 1:18p m Essential hypertension March 29, 2024 1: 18pm Hyperlipidemia, unspecified March 29 1:18pm Musculoskeletal pain March 29, 2024 1:18 pm Obesity (BMI 30.0-34.9) March 29, 2024 1 :18pm Osteoporosis March 29, 2024 1:18p m Thoracic back pain March 29, 2024 1:18p m Anxiety and depression July 27, 2024 2:17pm Dementia July 27, 2024 2: 17pm Essential hypertension July 27, 2024 2:17pm Hyperlipidemia, unspecified July 27, 2024 2:17pm Hypothyroidism, unspecified July 27, 2024 2:17pm Osteoporosis July 27, 2024 2: 17pm Thoracic back pain July 27, 2024 2: 17pm Encounter for wellness examination Octob er 2023 2:17pm Hypothyroidism, unspecified August 10:58am Osteoporosis September 06, 2024 10:58am Reason for Referral Referring Provider Name Referring Provider Address Referring Provider Phone Referral Date Requested Appointment Date Referral Reason Cosme Boyd [address] [facility] [address] Work Phone: March 29, 2024 M54.6 - Pain in thoracic spine March 29, 2024 M54.6 - Pain in thoracic spine Allergies, Adverse Reactions, Alerts Allergen Type Severity Reaction Last Updated Verified Status codeine Allergy Unknown Nausea September 06, 2024 11:06am Yes Active tramadol Adverse Reaction Mild Hallucinating Novem 2023 11:06am Yes Active Social History Smoking Status Status Start Date End Date Date of Observa tion Never smoked tobacco (finding) September 06, 2024 11:05am Observation Status Observation Response Date of Response Do You Feel Safe in your Home? Yes M ay 2023 9:31am Has Lack of Trans Kept You F rom Med Appts or Getting Meds? No March 02, 2024 9:31am In Past 12 Months, Were You Worried Your Food Would Run Out? Never True March 02, 2024 9:31am What is Your Housing Situati on Today? I Have Housing March 02, 2024 9:31am Gender Identity (if Verbaliz ed by the Patient) Female March 02, 2024 9:31am Sexual Orientation (if Verbalized by the Patient) Straight or Heterosexual March 02, 2024 9:31am Are You Worried That in Next 2 Mo, You Won't Have Housing? No March 02, 2024 9:31am Do You Have Trouble Paying Y our Heating Or Electricity Bill? No March 02, 2024 9:31am Do You Have Trouble Paying F or Medicines? No March 02, 2024 9:31am Are You Currently Unemployed and Looking for Work? No March 02, 2024 9:31am Highest Level of Education Completed Master's Degree or Higher March 02, 2024 9:31am Do You Have Trouble With Childcare/Care of a Family Member? No March 02, 2024 9:31am alcohol intake current March 02, 2024 9: 31am Substance use type does not use March 02, 2024 9:31am Patient Sex Female September 19, 024 12:48am Assigned Sex Female 1945 Family History Relationship Condition Age at Onset Recorded Date/T celina Not Specified Systemic sclerosis Unknown High blood cholesterol Unknown father Hypertension Unknown Cerebrovascular accident (CVA) Unknown mother Family history of ma lignant neoplasm of breast in first degree relative Unknown Problems Active Problems Medical Problem Onset Date Status VIVEK (acute kidney injury) Unknown Active Effusion, right knee Unknown Active Abnormal ultrasound of bladder Unknown A ctive UTI (urinary tract infection) Unknown Ac tive Abnormality of breast on screening mammography U nknown Active COVID-19 vaccine series completed Unknown Active Annual physical examination for person with mental illness completed Unknown Active Age-related osteoporosis without current patholo gical fracture Unknown Active MCL sprain of right knee Unknown Active Transaminitis Unknown Active De Quervain's disease (tenosynovitis) Unknown Active Pyuria Unknown Active Essential hypertension Unknown Active Essential hypertension Unknown Active Osteoporosis Unknown Active Hypovitaminosis D Unknown Active Endometrial polyp Unknown Active CKD (chronic kidney disease) stage 3, GFR 30-59 ml/min Unknown Active Vaccine counseling Unknown Active Age related osteoporosis Unknown Active Closed fracture of pubic ramus Unknown A ctive Confusion Unknown Active Dementia Unknown Active Depression Unknown Active Grief Unknown Active Hyperlipidemia, unspecified Unknown Acti ve Hypothyroidism, unspecified Unknown Acti ve Leukocytosis Unknown Active Trochanteric bursitis Unknown Active Obesity (BMI 30.0-34.9) Unknown Active Breast cancer screening Unknown Active Elevated liver enzymes Unknown Active Bilateral sacral insufficiency fracture Unknown Active Decreased bone density Unknown Active Epigastric pain Unknown Active Memory change Unknown Active Musculoskeletal pain Unknown Active Anxiety and depression Unknown Active Medial meniscus tear Unknown Active Right knee pain Unknown Active Personal history of other drug therapy Unknown Active Unable to ambulate Unknown Active Neck Pain Unknown Active Neck Pain Unknown Active Rib pain Unknown Active Thoracic back pain Unknown Active Acute urinary retention Unknown Active Pharyngitis Unknown Active Constipation Unknown Active Constipation Unknown Active Dehydration Unknown Active Inactive/Resolved Problems Medical Problem Onset Date Status Lower back pain Unknown Resolved Medications Medication Status Dose Units Route Directions Qty Days St art Date Stop Date End Date Instructions Adherence Polyethylen e Glycol 3350 (Miralax) 17 gram powder in packet Active 17 GM PO TWICE A DAY as needed for constipatio n Februa 2021 10:33a m Magnesium 250 mg tablet Active 250 MG PO DAILY February 28, 2023 11:00p m CALCIUM 500 mg Active 1 TABLET BY MOUTH DAILY Octobe r 2022 11:00p m OTC Multivitami n (Daily Multi-Vitam in) tablet Active 1 TABLET PO DAILY Octobe r 2022 11:00p m Romosozumab -Aqqg (Evenity) 105 mg/1.17 mL syringe Active 210 MG SUB-Q Monthly Novemb er 2023 12:00a m Cephalexin 500 mg capsule Active 500 MG PO Q12H 10 5 Novemb er 2023 12:00a m Levothyroxi ne 75 mcg tablet Active 0 .ROUTE .COMPLEX May 16, 2024 11:47a m Take 1 tablet by mouth once daily Donepezil 10 mg tablet Active 10 MG PO Every Day At Bedtime 2023 8:29am Rosuvastati n 20 mg tablet Active 0 .ROUTE .COMPLEX Julobe r 2023 7:43am Take 1 tablet by mouth once daily Lisinopril 5 mg tablet Active 0 .ROUTE .COMPLEX 90 Novemb er 2023 1:44pm Take 1 tablet by mouth once daily Sertraline 50 mg tablet Active 0 .ROUTE .COMPLEX 180 Novemb er 2023 6:53am Take 1 tablet by mouth twice daily Immunizations Immunization Event Date Not Given Reason Dose Number Vp [employer] Lot Number Vaccine Information Statement (VIS) Detail Administration Location Fluad Quad High Dose (65+) July 25, 2021 Fluad Quad High Dose (65+) July 11, 2022 [id number] Fluad Quad High Dose (65+) July 09, 2023 Fluzone High-Dose 65YR+ July 05, 2014 Fluzone High-Dose 65YR+ July 22, 2015 Fluzone High-Dose 65YR+ July 29, 2016 Fluzone High-Dose 65YR+ July 06, 2017 Fluzone High-Dose 65YR+ July 18, 2018 Fluzone High-Dose 65YR+ July 19, 2019 Fluzone High-Dose 65YR+ June 27, 2020 Fluzone High-Dose 65YR+ July 21, 2024 Pneumococcal Conjugate Vaccine, 13 valent September 08, 2016 Pneumococcal Polysacc. Vaccine, 23 valent August 25, 2016 Pneumococcal Polysacc. Vaccine, 23 valent June 24, 2017 Pneumococcal Polysacc. Vaccine, 23 valent June 25, 2017 Pneumococcal Polysacc. Vaccine, 23 valent November 01, 2018 RSV (Arexvy) July 09, 2023 SARS-COV-2 (COVID-19) Comirnaty August 06, 2023 SARS-COV-2 (COVID-19) Moderna November 28, 2020 SARS-COV-2 (COVID-19) Moderna December 31, 2020 SARS-COV-2 (COVID-19) Moderna August 22, 2021 SARS-COV-2 (COVID-19) Moderna May 14, 2022 SARS-COV-2 (COVID-19) Moderna Bivalent September 18, 2022 [id number] SARS-COV-2 (COVID-19) Spikevax November 28, 2020 SARS-COV-2 (COVID-19) Spikevax December 31, 2020 SARS-COV-2 (COVID-19) Spikevax August 22, 2021 SARS-COV-2 (COVID-19) Spikevax May 14, 2022 Tetanus, Diphtheria, Pertussis (Tdap) April 08, 2017 Tetanus, Diphtheria, Pertussis (Tdap) April 12, 2017 Shingles (Zoster) - Live June 24, 2017 Shingles (Zoster) - Live December 06, 2018 Shingles (Zoster) - Live February 24, 2019 zoster vaccine, recombinant December 06, 2018 Procedures Procedure Date Performed Status Urine Culture September 18, 2024 active Relevant Diagnostic Tests and/or Laboratory Data Laboratory Results Test Date/Time Result Interpretation Reference Range Result Comment Performing Site White Blood Count August 15, 2024 1:55pm 8.6 K/mm3 4.5-10.0 [facility] [id number] [address] [place] [address] White Blood Count September 18, 2024 3:18pm 8.0 K/mm3 4.5-10.0 [facility] [id number] [address] [place] [address] Red Blood Count August 15, 2024 1:55pm 4.08 M/mm3 Below low normal 4.2-5.4 [facility] [id number] [address] [place] [address] 79304 Red Blood Count September 18, 2024 3:18pm 4.16 M/mm3 Below low normal 4.2-5.4 [facility] [id number] [address] [place] [address]275 Hemoglobin August 15, 2024 1:55pm 12.0 g/dL 12.0-15.0 [facility] [id number] [address] [place] [address] 34228 Hemoglobin September 18, 2024 3:18pm 12.3 g/dL 12.0-15.0 [facility] [id number] [address] [place] [address] 52483 Hematocrit August 15, 2024 1:55pm 36.7 % Below low normal 37.0-47.0 [facility] [id number] [address] [place] [address]3798 Hematocrit September 18, 2024 3:18pm 38.9 % 37.0-47.0 [facility] [id number] [address] [place] [address] Mean Corpuscular Volume August 15, 2024 1:55pm 90.0 fL 80-100 [facility] [id number] [address] [address] Mean Corpuscular Volume September 18, 2024 3:18pm 93.5 fL 80-100 [facility] [id number] [address] [address] Mean Corpuscular Hemoglobin August 15, 2024 1:55pm 29.4 pg 26-34 [facility] [id number] [address] [address] Mean Corpuscular Hemoglobin September 18, 2024 3:18pm 29.6 pg 26-34 [facility] [id number] [address] [address] Mean Corpuscular Hemoglobin Concent August 15, 2024 1:55pm 32.7 g/dL [address] [place] [address] Laboratory [id number] [address] [address] Mean Corpuscular Hemoglobin Concent September 18, 2024 3:18pm 31.6 g/dL Below low normal [address] [place] [address] Laboratory [id number] [address] [address] Red Cell Distribution Width August 15, 2024 1:55pm 13.1 % 11.5-14.5 [facility] [id number] [address] [address] Red Cell Distribution Width September 18, 2024 3:18pm 13.1 % 11.5-14.5 [facility] [id number] [address] [address] Platelet Count August 15, 2024 1:55pm 244 k/mm3 150-375 [facility] [id number] [address] [address] Platelet Count September 18, 2024 3:18pm 207 k/mm3 150-375 [facility] [id number] [address] [address] Percent Immature Platelet Fraction September 18, 2024 3:18pm 4.6 % 0.9-11.2 - An elevated IPF indicates platelets are being produced.- High IPF levels are related to increased peripheral platelet destruction.- A low platelet and low IPF is consistent with a platelet production disorder. [facility] [id number] [address] [address] Mean Platelet Volume August 15, 2024 1:55pm 10.0 fL 7.4-10.4 [facility] [id number] [address] [place] [address] Mean Platelet Volume September 18, 2024 3:18pm 10.6 fL Above high normal 7.4-10.4 [facility] [id number] [address] [place] [address] 21666 Nucleated Red Blood Cells % September 18, 2024 3:18pm 0.0 % 0.0-0.2 [facility] [id number] [address] [place] [address] Immature Granulocyte % (Auto) September 18, 2024 3:18pm 0.6 % Above high normal 0-0.5 [facility] [id number] [address] [place] [address]25 Neutrophils (%) (Auto) September 18, 2024 3:18pm 64.3 % 45.5-73.1 [facility] [id number] [address] [place] [address] 42026 Lymphocytes (%) (Auto) September 18, 2024 3:18pm 23.5 % 18.3-44.2 [facility] [id number] [address] [place] [address] Monocytes (%) (Auto) September 18, 2024 3:18pm 8.5 % 2.6-8.5 [facility] [id number] [address] [place] [address]17 Eosinophils (%) (Auto) September 18, 2024 3:18pm 2.5 % 0-4.4 [facility] [id number] [address] [place] [address] 55790 Basophils (%) (Auto) September 18, 2024 3:18pm 0.6 % 0.2-1.2 [facility] [id number] [address] [place] [address] 13983 Nucleated RBC Absolute Count (auto) September 18, 2024 3:18pm 0.000 K/mm3 0.0-0.012 [facility] [id number] [address] [place] [address] Absolute Immature Granulocyte (auto September 18, 2024 3:18pm 0.05 K/mm3 Above high normal 0.00-0.031 [facility] [id number] [address] [place] [address] Absolute Neutrophils (auto) September 18, 2024 3:18pm 5.1 K/mm3 1.3-6.7 [facility] [id number] [address] [place] [address] Lymphocytes # (Auto) September 18, 2024 3:18pm 1.87 K/mm3 0.9-3.2 [facility] [id number] [address] [place] [address] Monocytes # (Auto) September 18, 2024 3:18pm 0.7 K/mm3 Above high normal 0.1-0.6 [facility] [id number] [address] [place] [address] Eosinophils # (Auto) September 18, 2024 3:18pm 0.2 K/mm3 0-0.3 [facility] [id number] [address] [place] [address] Basophils # (Auto) September 18, 2024 3:18pm 0.1 K/mm3 0.0-0.1 [facility] [id number] [address] [place], [place] [address] Platelet Estimate September 18, 2024 3:18pm Adequate Adequate [facility] [id number] [address] [place], [place] [address] Schistocytes September 18, 2024 3:18pm None seen [facility] [id number] [address] [place] [address] Prothrombin Time September 18, 2024 3:18pm 13.6 s 11.1-14.7 [facility] [id number] [address] [place] [address] Prothromb Time International Ratio September 18, 2024 3:18pm 1.0 INR Indication---- ----- 0.9 - 1.1 Patients not on anticoagulant therapy.2.0 - 3.0 Routine therapy.2.5 - 3.5 Recurrent myocardial infarction or mechanical prosthetic valves. [facility] [id number] [address] [place], [place] [address] Activated Partial Thromboplast Time September 18, 2024 3:18pm 21.2 s Below low normal 22.3-36.8 [facility] [id number] [address] [address] Urine Color September 18, 2024 10:26pm Yellow Yellow [facility] [id number] [address] [address] Urine Appearance September 18, 2024 10:26pm Cloudy Above high normal Clear [facility] [id number] [address] [address] Urine pH September 18, 2024 10:26pm 7.0 5.0-9.0 [facility] [id number] [address] [address] Urine Specific [place] September 18, 2024 10:26pm 1.021 1.001-1.03 5 [facility] [id number] [address] [address] Urine Protein September 18, 2024 10:26pm Trace mg/dL Negative [facility] [id number] [address] [address] Urine Glucose (UA) September 18, 2024 10:26pm Negative mg/dL Negative [facility] [id number] [address] [address] Urine Ketones September 18, 2024 10:26pm Negative mg/dL Negative [facility] [id number] [address] [address] Urine Blood (Manual) September 18, 2024 10:26pm 3+ Above high normal Negative [facility] [id number] [address] [address] Urine Nitrate September 18, 2024 10:26pm Negative Negative [facility] [id number] [address] [address] Urine Bilirubin September 18, 2024 10:26pm Negative Negative [facility] [id number] [address] [address] Urine Urobilinogen September 18, 2024 10:26pm 1.0 mg/dL <2.0 [facility] [id number] [address] [address] Urine Leukocyte Esterase (Reflex) September 18, 2024 10:26pm 1+ DENISE/UL Above high normal Negative [facility] [id number] [address] [address] Urine RBC September 18, 2024 10:26pm >100 [HPF] Above high normal 0-2 [facility] [id number] [address] [address] Urine WBC September 18, 2024 10:26pm 11-20 [HPF] Above high normal 0-3 [facility] [id number] [address] [address] Urine Squamous Epithelial Cells September 18, 2024 10:26pm None seen [HPF] Few [facility] [id number] [address] [address] Urine Bacteria September 18, 2024 10:26pm None seen [HPF] [facility] [id number] [address] [address] Sodium Level August 15, 2024 1:55pm 138 mmol/L 137-145 [facility] [id number] [address] [address] Sodium Level September 18, 2024 3:18pm 138 mmol/L 137-145 [facility] [id number] [address] [address] Potassium Level August 15, 2024 1:55pm 4.0 mmol/L 3.4-5.0 [facility] [id number] [address] [address] Potassium Level September 18, 2024 3:18pm 4.5 mmol/L 3.4-5.0 SLIGHT HEMOLYSIS, VISUALLY INSPECTED SPECIMEN [facility] [id number] [address] [address] Chloride Level August 15, 2024 1:55pm 101 mmol/L 98-107 [facility] [id number] [address] [address] Chloride Level September 18, 2024 3:18pm 108 mmol/L Above high normal 98-107 [facility] [id number] [address] [address] Carbon Dioxide Level August 15, 2024 1:55pm 29 mmol/L [facility] [id number] [address] [address] Carbon Dioxide Level September 18, 2024 3:18pm 23 mmol/L [facility] [id number] [address] [address] Anion Gap August 15, 2024 1:55pm 8 mmol/L 02-03 [facility] [id number] [address] [address] Anion Gap September 18, 2024 3:18pm 7 mmol/L 02-03 [facility] [id number] [address] [place] [address] Blood Urea Nitrogen August 15, 2024 1:55pm 31 mg/dL Above high normal 7-17 [facility] [id number] [address] [place] [address] 11674 Blood Urea Nitrogen September 18, 2024 3:18pm 26 mg/dL Above high normal 7-17 [facility] [id number] [address] [place] [address] Creatinine November 09, 2023 9:05am 0.90 mg/dL 0.7-1.0 [facility] [id number] [address] [place] [address] Creatinine August 15, 2024 1:55pm 0.90 mg/dL 0.7-1.0 [facility] [id number] [address] [place] [address] Creatinine September 18, 2024 3:18pm 0.70 mg/dL 0.7-1.0 [facility] [id number] [address] [place] [address] Estimat Glomerular Filtration Rate November 09, 2023 9:05am 60 >59 > OR = 60 ml/min/1.73 square metersThe MDRD formula used to calculate the eGFR result has not been validated in patients > 70 years of age. [facility] [id number] [address] [place] [address] Estimat Glomerular Filtration Rate August 15, 2024 1:55pm 60 >59 > OR = 60 ml/min/1.73 square metersThe MDRD formula used to calculate the eGFR result has not been validated in patients > 70 years of age. [facility] [id number] [address] [place] [address] Estimat Glomerular Filtration Rate September 18, 2024 3:18pm > 60 >59 > OR = 60 ml/min/1.73 square metersThe MDRD formula used to calculate the eGFR result has not been validated in patients > 70 years of age. [facility] [id number] [address] [place] [address] Estimated Creatinine Clearance Calc November 09, 2023 9:05am 39 mL/min For use in prescription drug dose determination only. Reference ranges have not been establishe for this calculation. [facility] [id number] [address] [place] [address] Estimated Creatinine Clearance Calc August 15, 2024 1:55pm Not Reportable [facility] [id number] [address] [place] [address] Estimated Creatinine Clearance Calc September 18, 2024 3:18pm 46 mL/min For use in prescription drug dose determination only. Reference ranges have not been establishe for this calculation. [facility] [id number] [address] [place] [address] Glucose Level August 15, 2024 1:55pm 143 mg/dL Above high normal 65-110 [facility] [id number] [address] [place] [address] Glucose Level September 18, 2024 3:18pm 117 mg/dL Above high normal 65-110 [facility] [id number] [address] [place] [address] Calcium Level August 15, 2024 1:03pm 10.0 mg/dL 8.4-10.2 [facility] [id number] [address] [place] [address] Calcium Level August 15, 2024 1:55pm 9.9 mg/dL 8.4-10.2 [facility] [id number] [address] [place] [address] Calcium Level September 18, 2024 3:18pm 9.4 mg/dL 8.4-10.2 [facility] [id number] [address] [place] [address] Total Bilirubin August 15, 2024 1:55pm 0.7 mg/dL 0.2-1.3 [facility] [id number] [address] [place] [address]55 Total Bilirubin September 18, 2024 3:18pm 0.7 mg/dL 0.2-1.3 [facility] [id number] [address] [place] [address] 21429 Aspartate Amino Transf (AST/SGOT) August 15, 2024 1:55pm 53 U/L Above high normal [address] [place] [address] Laboratory [id number] [address] [place] [address] Aspartate Amino Transf (AST/SGOT) September 18, 2024 3:18pm 40 U/L Above high normal [address] [place] [address] Laboratory [id number] [address] [place] [address] Alanine Aminotransfera se (ALT/SGPT) August 15, 2024 1:55pm 50 U/L Above high normal 6-35 [facility] [facility] [id number] [address] [address] Alanine Aminotransfera se (ALT/SGPT) September 18, 2024 3:18pm 29 U/L 6-35 [facility] [id number] [facility] [address] [address] Total Protein August 15, 2024 1:55pm 8.0 g/dL 6.3-8.2 [facility] [id number] [address] [address] Total Protein September 18, 2024 3:18pm 7.0 g/dL 6.3-8.2 [facility] [id number] [address] [address] Albumin August 15, 2024 1:03pm 4.4 g/dL 3.5-5.1 [facility] [id number] [address] [address] Albumin August 15, 2024 1:55pm 4.3 g/dL 3.5-5.1 [facility] [id number] [facility] [address] [address] Albumin September 18, 2024 3:18pm 4.1 g/dL 3.5-5.1 [facility] [id number] [facility] [address] [address] Triglycerides Level August 15, 2024 1:55pm 63 mg/dL <150 [facility] [id number] [facility] [address] [address] Cholesterol Level August 15, 2024 1:55pm 202 mg/dL Above high normal 0-200 [facility] [id number] [facility] [address] [address] LDL Cholesterol Direct August 15, 2024 1:55pm 87 mg/dL <130 mg/dl Tzjystzin449-0 59 mg/dl Borderline High Risk >160 mg/dl High Risk [facility] [id number] [facility] [address] [address] HDL Cholesterol Direct August 15, 2024 1:55pm 82 mg/dL Expected Range > 35 mg/dl [facility] [id number] [facility] [address] [address] Alkaline Phosphatase August 15, 2024 1:55pm 64 U/L 38-126 [facility] [id number] [address] [place], [place] [address] Alkaline Phosphatase September 18, 2024 3:18pm 46 U/L 38-126 [facility] [id number] [address] [place] [address] Vitamin D 25-Hydroxy August 15, 2024 1:55pm 102.0 ng/mL Reference Range:<20 ng/mL Remzmnufr39-81 .9 ng/mL Vtnzlrzihvak09 -100 ng/mL Sufficient>100 ng/mL Potential Toxicity [facility] [id number] [address] [place] [address] Thyroid Stimulating Hormone (TSH) August 15, 2024 1:55pm 3.210 [iU]/mL 0.465-4.68 0 [facility] [id number] [address] [place] [address] Urine Casts September 18, 2024 10:26pm 0-2 [facility] [id number] [address] [place] [address] Diagnostic Imaging Reports Author Clinton Dunn [facility] Report Date/Time September 18, 2024 11:38pm [place] [address] Ultrasound Report Signed Patient: Michaelle Lopez : 1945 MR#: [id number] Age: 79 Acct:[id number] Loc: [facility] ADM Date: 09/18/[address]: Ordering Physician: Ana Luciano PA-C Date of Service: 09/18/24 Procedure(s): US pelvic complete w TV Accession Number(s): [id number] cc: Cosme Boyd MD; Ana Luciano PA-C~ EXAMINATION: US pelvic complete w TV DATE: 09/18/2024 23:30 INDICATION: AUB TECHNIQUE: Multiple transabdominal and endovaginal sonographic images of the pelvis were obtained. COMPARISON: None. FINDINGS: Uterus: Retroverted, 8.9 x 4.3 x 5.5 cm. Endometrial complex measures 3 mm. 9 x 5 mm polypoid projection into the uterine cavity which is distended by small volume fluid. Right Ovary: Not visualized. Left Ovary: Not visualized. There is minimal free fluid in the pelvis. IMPRESSION: 9 x 5 mm polypoid projection into the uterine cavity, likely representing an endometrial polyp. Adherent clot and focal endometrial hyperplasia/carcinoma should also be considered in the differential. Small volume endometrial fluid, may represent blood. Reviewed, dictated and finalized at location K. T END TECHNICIAN Dictated By: Clinton Dunn MD 09/18/24 2331 Signed By: <Electronically signed by Clinton Dunn MD in OV> 09/18/24 2338 Vital Signs Vital Reading Result Reference Range Collection Date/Time Height 62 [in_i] March 29, 2024 12:38pm Weight 57.60 kg March 29, 2024 12:38pm Body Temperature 97.8 [degF] 97.6-99.6 March 29, 2 024 12:38pm Heart Rate 86 /min 60-100 March 29, 2024 12:38pm Respiratory rate 18 /min -March 29, 2 024 12:38pm Oxygen saturation by Pulse oximetry 96 % 90-100 March 29, 2024 12:38 pm BP Systolic 112 mm[Hg] 100-140 March 29, 2024 12:38pm BP Diastolic 72 mm[Hg] 60-90 March 29, 2024 12:38pm BMI (Body Mass Index) 23.2 kg/m2 March 292023 12:38pm Height 59 [in_i] July 27 1:33pm Weight 53.66 kg July 27 1:33pm Body Temperature 97.2 [degF] 97.6-99.6 July 1:33pm Heart Rate 70 /min 60-100 July 27 1:33pm Oxygen saturation by Pulse oximetry 98 % 90-100 July 27, 2024 1: 33pm BP Systolic 130 mm[Hg] 100-140 July 27 1:33pm BP Diastolic 74 mm[Hg] 60-90 July 27 1:33pm BMI (Body Mass Index) 23.8 kg/m2 Octobe r 2023 1:33pm Height 59 [in_i] September 06, 2024 11:00am Weight 54.68 kg September 06, 2024 11:00am Heart Rate 74 /min 60-100 September 06, 2024 11:00am BP Systolic 128 mm[Hg] 100-140 September 06, 2024 11:00am BP Diastolic 82 mm[Hg] 60-90 September 06, 2024 11:00am BMI (Body Mass Index) 24.3 kg/m2 [facility] 2023 11:00am Height 61.00 [in_i] February 29, 2020 7 :18am Weight 66.40 kg May 14, 2023 10:07am Body Temperature 97.7 [degF] 97.6-99.6 September 122023 12:15pm Heart Rate 73 /min 60-100 September 12, 2024 12:15pm Respiratory rate 16 /min -June 262023 9:56am Oxygen saturation by Pulse oximetry 96 % 90-100 September 12, 2024 12:15pm BP Systolic 138 mm[Hg] 100-140 September 12, 2024 12:15pm BP Diastolic 64 mm[Hg] 60-90 September 12, 2024 12:15pm Height 63 [in_i] September 18, 2024 10:28pm Weight 54.00 kg September 18, 2024 10:28pm Body Temperature 98 [degF] 97.6-99.6 September 182023 1:33pm Heart Rate 73 /min 60-100 September 19, 2024 12:38am Respiratory rate 14 /min -September 192023 12:38am Oxygen saturation by Pulse oximetry 99 % 90-100 September 19, 2024 12:38am BP Systolic 134 mm[Hg] 100-140 September 19, 2024 12:38am BP Diastolic 63 mm[Hg] 60-90 September 19, 2024 12:38am Insurance Providers Guarantor Michaelle Lopez Address [address] [place] [address] Contact Info. Home Phone: Payer Policy Id Coverage Id Subscriber's Name Subscriber Id Effective Date Expiration Date [facility] [id number] Michaelle Lopez [id number] 2018 ACC [id number] Michaelle A Lopez [id number] Medicare Parts A & B [id number] Michaelle A Lopez [id number] [address] [id number] Michaelle A Lopez [id number] Medicare RR [facility] [id number] Michaelle A Lopez [id number] 2010 Self Pay Self N/A Encounters Encounter Location(s) Arrival/Admit Date Discharge/Depart Date Provider(s) Departed Physician/Provi dwight Office Visit [facility] March 29, 2024 12:18pm March 29, 2024 1:07pm Cosme Boyd MD Departed Physician/Provi dwight Office Visit [facility] July 27, 2024 1:17pm July 27, 2024 2:18pm Cosme Boyd MD Departed [facility] August 15, 2024 1:07pm August 15, 2024 1:08pm Agus Serrato MD Departed Physician/Provi dwight Office Visit [facility]Endocrin[facility] September 06, 2024 10:58am September 06, 2024 11:30am Radha Reid MD Registered [facility] September 12, 2024 12:00pm Augs Serrato MD Departed Emergency [facility] September 18, 2024 1:15pm September 19, 2024 12:47am Recent Diagnosis Onset Date Admit Date Epigastric pain Unknown March 29, 2024 1 :18pm Essential hypertension Unknown March 29, 2024 1:18pm Hyperlipidemia, unspecified Unknown March 29, 2024 1:18pm Musculoskeletal pain Unknown March 29, 2 024 1:18pm Obesity (BMI 30.0-34.9) Unknown March 1:18pm Osteoporosis Unknown March 29, 2024 1 :18pm Thoracic back pain Unknown March 29 1:18pm Anxiety and depression Unknown July 272023 2:17pm Dementia Unknown July 27 2:17pm Essential hypertension Unknown July 272023 2:17pm Hyperlipidemia, unspecified Unknown 2023 2:17pm Hypothyroidism, unspecified Unknown 2023 2:17pm Osteoporosis Unknown July 27 2:17pm Thoracic back pain Unknown July 27, 2024 2:17pm Encounter for wellness examination Unknown July 27, 2024 2:17pm Hypothyroidism, unspecified Unknown Julee rosales 2023 10:58am Osteoporosis Unknown September 06, 2 024 10:58am Assessments Diagnosis Onset Date Resolution Status Admit Date Epigastric pain acute March 29, 2024 1:18pm Essential hypertension acute Ju 2023 1:18pm Hyperlipidemia, unspecified acute March 29, 2024 1:18pm Musculoskeletal pain acute March 29, 2024 1:18pm Obesity (BMI 30.0-34.9) acute J 2023 1:18pm Osteoporosis acute March 29 1:18pm Thoracic back pain acute March 292023 1:18pm Anxiety and depression acute Oc tob2023 2:17pm Dementia acute July 27, 024 2:17pm Essential hypertension acute Oc tob2023 2:17pm Hyperlipidemia, unspecified acute July 27, 2024 2:17pm Hypothyroidism, unspecified acute July 27, 2024 2:17pm Osteoporosis acute July 27, 2024 2:17pm Thoracic back pain acute 2023 2:17pm Encounter for wellness examination noneactive July 27 2:17pm Hypothyroidism, unspecified acute September 06, 2024 10:58am Osteoporosis acute August 10:58am Plan of Treatment Author Cosme [facility] Authored March 29, 2024 1:08p m Brigitte Labs: reviewed, due in 4 months ?? Thoracic Spine pain/paraspinal muscles -xray ordered, PT Epigastric pain only when cough/sneezing -daily, u/s ordered Vit D def -on supplement, was borderline high last visit ?? Osteoporosis -infusions, endo following ? Anxiety, Depression (no si/hi) -sertraline; therapist. ?? Constipation -stable ?? HLD -statin ?? HTN -lisinopril ?? Dementia -Donepezil, improved with medication. ?? Hypothyroidism -TSH nml, on Synthroid ?? 35 min clinic visit Author Radha Reid [facility] Authored September 06, 2024 11:10am Oscal? 600 mg twice daily vitamin D 5000 IU daily Evenity once a month discussed if bone density declining, might have to go back to [facility] reviewed recent labs reviewed DEXAs clinically and biochemically euthyroid continue replacement therapy to call Brenden with the plan ([phone]) Author Cosme [facility] Authored July 27, 2024 6: 54pm Immunizations: Covid due, wi ll get booster. will get flu and rsv next month. Tdap, Pneumococcal, Shingrix utd, flu, rsv Dexa Screen: 2022 osteoporosis, currently on infusions Mammogram: due, ordered Pap Smear/HPV:n/a Colon Cancer Screen: due in 3 years if desires Labs: reviewed, due/ordered Smoking Cessation counseling not needed, no smoking hx Alcohol use: none Not at risk for STD's VSS ASCVD on statin Fall Risk assessed: no concerns Dental exams: utd Eye exams: utd Hearing: no concerns 6 months folllow up Brigitte Polst accomplished, intake forms for snf accomplished Thoracic Spine pain/paraspinal muscles -xray ordered/still pending, PT ; does not need injections. Making bed, irrigator head. ? Vit D def -on supplement, was borderline high last visit ?? Osteoporosis -infusions, endo following ? Anxiety, Depression (no si/hi) -sertraline; therapist. ?? Constipation -stable ?? HLD -statin ?? HTN -lisinopril ?? Dementia -Donepezil, improved with medication. Word finding. Calenders, times. Dates. ?? Hypothyroidism -TSH nml, on Synthroid Future Tests Future scheduled test information is unavailable Pending Tests Test Name Ordered Date Scheduled Date Urine Culture September 18, 2024 10:26pm US abdomen limited March 29, 2024 1:03pm XR thoracic spine 3V March 29, 2024 12:44pm Thyroid Stimulating Hormone March 29, 2024 12:55 pm 4 Months XR lumbar spine 2-3V September 06, 2024 11:26am XR thoracic spine 3V September 06, 2024 11:28am Future Visits Future appointment information is unavailable Referrals to Other Providers Reason for Referral Referral Start Date Provider Provider Contact Information Provider Address M54.6 - Pain in thoracic spine March 29, 2024 [facility] [address] [facility] [address] Cosme Boyd MD Work Phone: [phone] [facility] [address] Mary Gabriel MD Work Phone: [phone] [place] [facility] [address] Future Procedures Procedure Name Ordered Date Scheduled Date Complete Blood Count no Diff March 29, 2024 12:5 2pm 4 Months Comprehensive Metabolic Panel March 29, 2024 12: 52pm 4 Months Lipid Panel March 29, 2024 12:56pm 4 Months Calcium 24 Hour Urine September 06, 2024 11:19a m Catecholamine 24 Hour Urine September 06, 2024 11:19am Urine Culture September 18, 2024 3:11pm Novem 2023 10:26pm Future Medications Future medication information is unavailable Patient Instructions Instruction Admit Date Hypertension (AC) Back Pain (AC) Back Pain (GEN) Anxiety (AC) Back Pain in Older Children and Adolescents (GEN) Back Pain in Children (GEN) July 27, 2024 2:17pm Antibiotic Form Urinary Tract Infection in Older Adults (ED) Endometrial Polyps (DC) September 18, 2024 1:15pm Hospital Discharge Instructions Additional Instructions Return to the ER if you experience fever, abdominal pain with nausea and vomiting, you are unable to keep down liquids or solids, or any other symptoms that are concerning to you Your ultrasound today showed an endometrial polyp. You also had some white blood cells in your urine, I have sent an antibiotic to the pharmacy for a possible UTI Follow up with gynecology (Dr. Gabriel) for further evaluation of your bleeding
--- OUTSIDE RECORDS SUMMARY | 2024-11-06 08:48 | XMS_ITS | Patient Health Summary ---
Author Organization [facility] Address [address] [place] [address] Care Team Providers Care Word Processing Machine Operator Name Role Phone Unavailable Primary Care Provider Unavailabl e Note from [facility],non-owned Affiliates and Associated Physician Practices is amultiple site organization consisting of ambulatory clinics and hospital sitesin [place], [place], [place] and [place]. This disclosure is being madepursuant to the Care Everywhere program and may not contain all information available regarding this patient. Last updated 18.[facility] Immunizations * INFLUENZA VACCINE, HIGH-DOSE, QUADR. (FLUZONE HIGH-DOSE QUADRIVALENT; 65Y+), 0.7 ML (HD-IIV4)(Given 06/27/2020) Social History Tobacco Use Types Packs/Day Years Used Date Smoking Tobacco: Never Assessed Sex and Gender Information Value Date Recorded Sex Assigned at Not on file Gender Identity Not on file Sexual Orientation Not on file
--- OUTSIDE RECORDS SUMMARY | 2024-11-06 08:48 | XMS_ITS | Encounter Summary ---
Author Organization [facility] Address [address] [place] [address] Care Team Providers Care Business Information Analyst Name Role Phone Unavailable Primary Care Provider Unavailabl e Encounter Details Date Type Department Care Team (Latest Contact Info) Description 08/22/2021 12:30 PM CDT Immunization [facility] Mobile Immunization [address] [place] [address] Need for vaccination (Primary Dx) Social History Tobacco Use Types Packs/Day Years Used Date Smoking Tobacco: Never Assessed Comments Unknown Sex and Gender Information Value Date Recorded Sex Assigned at Not on file Legal Sex Female 12:08 PM CDT Gender Identity Not on file Sexual Orientation Not on file documented as of this encounter Plan of Treatment Not on file documented as of this encounter Visit Diagnoses Diagnosis Need for vaccination- Primary Need for prophylactic vaccination and inoculation against unspecified single disease documented in this encounter
--- OUTSIDE RECORDS SUMMARY | 2024-11-06 08:48 | XMS_ITS | Clinical Summary ---
Author Organization [facility] Address [address] [place] [address] Care Team Providers Care Impregnator Operator Name Role Phone Unavailable Primary Care Provider Unavailabl e Source Comments [facility],non-owned Affiliates and Associated Physician Practices is amultiple site organization consisting of ambulatory clinics and hospital sitesin [place], [place], [place] and [place]. This disclosure is being madepursuant to the Care Everywhere program and may not contain all information available regarding this patient. Last updated 18.[facility] [employer] Immunizations Name Administration Dates Next Due INFLUENZA VACCINE, HIGH-DOSE , QUADR. (FLUZONE HIGH-DOSE QUADRIVALENT; 65Y+), 0.7 ML (HD-IIV4) 06/27/2020 Social History Tobacco Use Types Packs/Day Years Used Date Smoking Tobacco: Never Assessed Sex and Gender Information Value Date Recorded Sex Assigned at Not on file Gender Identity Not on file Sexual Orientation Not on file Plan of Treatment Health Maintenance Due Date Last Done Comments BONE DENSITY TESTING 1945 MEDICARE AWV ? 12 MONTHS 1945 DTAP/TDAP/TD VACCINES (1 - Tdap) 1963 ZOSTER VACCINE (1 of 2) 1994 PNEUMOCOCCAL VACCINE 50+ (1 of 1 - PCV) 2009 Respiratory Syncytial Virus (RSV) Vaccine Pt: or over 60 yrs (1 - 1-dose 75+ series) 2019 COVID-19 VACCINE ( - 2023-2 5 season) 2024 INFLUENZA VACCINE (#1) 2024 06/27/2020 DEPRESSION SCREENING 10/25/2024 HEPATITIS B VACCINE Aged Out No longe r eligible based on patient's age to complete this topic HIB VACCINE Aged Out No longer eligi ble based on patient's age to complete this topic HPV VACCINE Aged Out No longer eligi ble based on patient's age to complete this topic MENINGOCOCCAL VACCINE Aged Out No criselda ubaldo eligible based on patient's age to complete this topic
--- OUTSIDE RECORDS SUMMARY | 2024-11-06 08:48 | XMS_ITS | Encounter Summary ---
Author Organization [facility] Address [address] [place] [address] Care Team Providers Care Server Administrator Name Role Phone Unavailable Primary Care Provider Unavailabl e Reason for Visit * Reason Comments Imm Inj Encounter Details Date Type Department Care Team (Late st Contact Info) Description 06/27/2020 12:00 PM CDT Office Visit [facility] [address] [address] Provider, Balbir Mata [place] Flu vaccine need (Primary Dx) Social History Tobacco Use Types Packs/Day Years Used Date Smoking Tobacco: Never Assessed Sex and Gender Information Value Date Recorded Sex Assigned at Not on file Gender Identity Not on file Sexual Orientation Not on file COVID-19 Exposure Response Date Recorded In the last month, have you been in contact with someone who was confirmed or suspected to have Coronavirus / COVID-19? No / Unsure 06/27/2020 11:21 AM CDT documented as of this encounter Progress Notes * Andreina Biggs - 06/27/2020 11:36 AM CDT Pr came in requesting a flu shot documented in this encounter Plan of Treatment Not on file documented as of this encounter Visit Diagnoses Diagnosis Flu vaccine need- Primary Need for prophylactic vaccination and inoculation against influenza documented in this encounter
--- OUTSIDE RECORDS SUMMARY | 2024-11-06 08:48 | XMS_ITS | Encounter Summary ---
Author Organization [facility] Address [address] [place] [address] Care Team Providers Care Sandwich Wrapper Name Role Phone Unavailable Primary Care Provider Unavailabl e Encounter Details Date Type Department Care Team (Late st Contact Info) Description 01/16/2021 Orders Only [facility] - COVID Vax [address] [place] [address] Swapnil Ibanez MD [address] [facility] [address] [place] [address] Need for vaccination Social History Tobacco Use Types Packs/Day Years Used Date Smoking Tobacco: Never Assessed Sex and Gender Information Value Date Recorded Sex Assigned at Not on file Gender Identity Not on file Sexual Orientation Not on file documented as of this encounter Plan of Treatment Not on file documented as of this encounter Visit Diagnoses Diagnosis Need for vaccination Need for prophylactic vaccination and inoculation against unspecified single disease documented in this encounter
--- OUTSIDE RECORDS SUMMARY | 2024-11-06 08:48 | XMS_ITS | Referral Summary ---
Author Organization [facility] Address [address] [place] [address] Care Team Providers Care Straightener Gun Parts Name Role Phone Unavailable Primary Care Provider Unavailabl e Source Comments [facility],non-owned Affiliates and Associated Physician Practices is amultiple site organization consisting of ambulatory clinics and hospital sitesin [place], [place]. This disclosure is being madepursuant to the Care Everywhere program and may not contain all information available regarding this patient. Last updated 18.[facility] Immunizations Name Administration Dates Next Due INFLUENZA VACCINE, HIGH-DOSE , QUADR. (FLUZONE HIGH-DOSE QUADRIVALENT; 65Y+), 0.7 ML (HD-IIV4) 06/27/2020 Social History Tobacco Use Types Packs/Day Years Used Date Smoking Tobacco: Never Assessed Sex and Gender Information Value Date Recorded Sex Assigned at Not on file Gender Identity Not on file Sexual Orientation Not on file Plan of Treatment Not on file
--- OUTSIDE RECORDS SUMMARY | 2024-11-06 08:48 | XMS_ITS | Encounter Summary ---
Author Organization [facility] Address [address] [place] [address] Care Team Providers Care String Top Sealer Name Role Phone Unavailable Primary Care Provider Unavailabl e Encounter Details Date Type Department Care Team (Latest Contact Info) Description 06/27/2020 Travel Social History Tobacco Use Types Packs/Day Years [...] AM CDT documented as of this encounter Plan of Treatment Not on file documented as of this encounter Visit Diagnoses Not on filedocumented in this encounter
--- OUTSIDE RECORDS SUMMARY | 2024-11-06 08:48 | XMS_ITS | Clinical Summary ---
Author Organization [facility] Address [address] [place] [address] Care Team Providers Care Last Picker Name Role Phone Unavailable Primary Care Provider Unavailabl e Immunizations Immunization Administration Dates Next Due Covid-19, Mrna, Lnp-s, PF, 1 00 mcg/0.5 mL Dose (Moderna) 08/22/2021 Social History Tobacco Use Types Packs/Day Years Used Date Smoking Tobacco: Never Assessed Comments Unknown Sex and Gender Information Value Date Recorded Sex Assigned at Not on file Legal Sex Female 12:08 PM CDT Gender Identity Not on file Sexual Orientation Not on file Plan of Treatment Health Maintenance Due Date Last Done Comments DEXA Bone Density 1945 Hepatitis C Virus (HCV) Screening 1945 Zoster Immunization (2 of 2) 04/21/2019 02/24/2019, 12/06/2018 Respiratory Syncytial Virus (RSV) Immunization (Adult) (1 - 1-dose 75+ series) 2019 Influenza Immunization (#1) 2024 10/0 10/2020, 06/27/2020, 06/27/2020, Additional history exists SARS-COV-2 Immunization ( season) 2024 08/22/2021, 12/31/2020, 11/28/2020 DTaP/Tdap/Td Immunization Discontinued 04/08/2017 TdaP Immunization Completed 04/08/2017 Pneumococcal Immunization (50+ years) Completed 06/25/2017, 09/08/2016 Hepatitis B Immunization Aged Out No longer eligible based on patient's age to complete this topic Meningococcal Immunization (ACWY) Aged Out No longer eligible based on patient's age to complete this topic Rotavirus Immunization Aged Out No lo nger eligible based on patient's age to complete this topic
--- OUTSIDE RECORDS SUMMARY | 2024-11-06 08:49 | XMS_ITS | Encounter Summary ---
Author Organization [facility] Healthcare Address [address] [place] [address] Care Team Providers Care Chef De Partie Name Role Phone Arun Antonio MD Primary Care Provider [phone] Encounter Details Date Type Department Care Team (Latest Contact Info) Description 10/13/2024 8:12 PM LAB NURSE - 10/13/2024 11:59 PM LAB NURSE Hospital Encounter [facility] [address] [place] [address] Altered mental status, unspecified altered mental status type Discharge Disposition: Discharge to home or self care Social History Tobacco Use Types Packs/Day Years Used Date Smoking Tobacco: Never Comments Unknown Sex and Gender Information Value Date Recorded Sex Assigned at Not on file Legal Sex Female 10:10 AM LAB NURSE Gender Identity Not on file Sexual Orientation Not on file documented as of this encounter Medications at Time of Discharge calcium carbonate-vitamin D3 1,500 mg (600mg elemental) -800 unit per tablet 2 times daily cholecalciferol (VITAMIN D-3) 1,000 unit daily donepeziL (ARICEPT) 10 mg tablet Take 1 tablet (10 mg total) by mouth nightly 10/11/2024 levothyroxine (SYNTHROID) 75 mcg tablet Take 1 tablet (75 mcg total) by mouth daily 08/11/2024 levothyroxine (SYNTHROID, LEVOTHROID) 50 mcg tablet daily lisinopril (PRINIVIL,ZESTRIL ) 20 mg tablet daily lisinopriL (PRINIVIL,ZESTRIL ) 5 mg tablet 08/25/2024 dpflltch-awf-EH-l ycopen-lutein (CENTRUM SILVER) 0.4-300-250 mg-mcg-mcg tablet daily pravastatin (PRAVACHOL) 20 mg tablet rosuvastatin (CRESTOR) 20 mg tablet Take 1 tablet (20 mg total) by mouth daily 08/11/2024 sertraline (ZOLOFT) 50 mg tablet Take 1 tablet (50 mg total) by mouth 2 (two) times a day 09/04/2024 documented as of this encounter Discharge Disposition Disposition Code Departure Means Destination Discharge to home or self care documented in this encounter Miscellaneous Notes * Result Encounter Note - Constanza Wilkerson NP - 10/13/2024 11:59 PM LAB NURSE Please alert patient that urine culture was negative. She can stop taking antibiotics if any were given for Urinary tract infection. If s/s persist, she should follow up with PCP. NURSE * Result Encounter Note - Vickie Mcdonough - 10/13/2024 11:59 PM CST Pts son(on HIPAA) returned call for rtest results. Read message from provider to him and he voiced understanding. NURSE documented in this encounter Plan of Treatment Not on file documented as of this encounter Procedures Procedure Name Priority Date/Time Associated Diagnosis Comments URINE CULTURE Routine 10/13/2024 4:00 PM LAB NURSE Altered mental status, unspecified altered mental status type documented in this encounter Results * Urine culture Urine, clean voided (10/13/2024 4:00 PM LAB NURSE) Report Final Report: Less than 100,000 colonies/mL (clinically insignificant growth based on current clinical standards) Comment:Testing performed by : [facility], [address], [place]., [address] Organism (CLINICALLY INSIGNIFICANT GROWTH [facility]Y Urine, clean voided 10/13/2024 4:00 PM LAB NURSE 10/14/2024 12:06 AM LAB NURSE Narrative TUCKER ROY - 10/15/2024 7:48 AM LAB NURSE Testing performed by [facility] Microbiology Laboratory ([phone]) us Constanza Wilkerson TUB TENDER LAB MICROBIOLOGY - GENERAL ORD ERABLES Final Result TUCKER ROY [address] Department [place] [address] documented in this encounter Visit Diagnoses Diagnosis Altered mental status, unspecified altered mental status type documented in this encounter Care Teams Chef De Partie Relationship Specialty Start Date End Date Arun Antonio MD [address] [place] [address] PCP - General Family Practice 03/07/18 documented as of this encounter
--- OUTSIDE RECORDS SUMMARY | 2024-11-06 08:49 | XMS_ITS | Encounter Summary ---
Author Organization [facility] Address [address] [place] [address] Phone Care Team Providers Care Hydroelectric Plant Electrician Name Role Phone Arun Antonio MD Primary Care Provider [phone] Encounter Details Date Type Department Care Team (Late st Contact Info) Description 03/02/2019 11:30 AM CDT Lab [facility] Endocrinology Metabolism and Lipid [address] [facility] [address] [place] [address] [place] [address] Age-related osteoporosis without current pathological fracture Social History Tobacco Use Types Packs/Day Years Used Date Smoking Tobacco: Never Comments Unknown Sex and Gender Information Value Date Recorded Sex Assigned at Not on file Legal 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 Gender Identity Not on file Sexual Orientation Not on file documented as of this encounter Plan of Treatment Not on file documented as of this encounter Procedures Procedure Name Priority Date/Time Associated Diagnosis Comments VITAMIN D 25 HYDROXY Routine 03/02/2019 11:30 AM CDT Age-related osteoporosis without current pathological fracture BASIC METABOLIC PANEL Routine 03/02/2019 11:30 AM CDT Age-related osteoporosis without current pathological fracture documented in this encounter Results * (ABNORMAL) Basic metabolic panel (03/02/2019 11:30 AM CDT) Glucose 106(H) 64 - 99 mg/dL [facility] Comment: NONFASTING GLUCOSE RANGE = 64-199 mg/dL FASTING GLUCOSE 64 - 99 = NORMAL FASTING GLUCOSE 100 - 125 = IMPAIRED FASTING GLUCOSE FASTING GLUCOSE >=126 = PROVISIONAL DIAGNOSIS OF DIABETES Potassium 4.2 3.3 - 5.1 mmol/L [facility] Creatinine 1.10 0.60 - 1.10 mg/dL [facility] BUN 32(H) 7 - 23 mg/dL [facility] Sodium 140 135 - 145 mmol/L [facility] Chloride 101 95 - 107 mmol/L [facility] CO2 Content 27 21 - 29 mmol/L [facility] Calcium 9.8 8.6 - 10.3 mg/dL [facility] eGFR NON-AFR. CAMBODIAN 49.4(L) >60.0 mL/min/1.7 3 m2 [facility] eGFR 57.3(L) >60.0 mL/min/1.7 3 m2 [facility] Blood specimen (specimen) 03/02/2019 11:30 AM CDT 03/02/2019 11:58 AM CDT Ruth Pascal MD LAB BLOOD ORDERABLES Final Result Performing Organization Address [facility] de Phone Number [facility] * Vitamin D 25 hydroxy (03/02/2019 11:30 AM CDT) Pathologist [facility] Vitamin D 52.6 30.0 - 100.0 ng/mL [facility] Comment: VITAMIN D DEFICIENCY = LESS THAN or EQUAL TO 20 ng/mL ? VITAMIN D INSUFFICIENCY = GREATER THAN 20 AND LESS THAN 30 ng/mL ? RECOMMENDED NORMAL RANGE = 30-100 ng/mL Blood specimen (specimen) 03/02/2019 11:30 AM CDT 03/02/2019 11:58 AM CDT Ruth Pascal MD LAB BLOOD ORDERABLES Final Result [facility] documented in this encounter Visit Diagnoses Diagnosis Age-related osteoporosis without current pathological fracture documented in this encounter Care Teams Hydroelectric Plant Electrician Relationship Specialty Start Date End Date Arun Antonio MD [address] [place] [address] PCP - General Family Practice 03/07/18 documented as of this encounter
--- OUTSIDE RECORDS SUMMARY | 2024-11-06 08:49 | XMS_ITS | Encounter Summary ---
Author Organization [facility] Care Team Providers Care Publisher Assistant Name Role Phone Unavailable Primary Care Provider Unavailabl e Encounter Details Date Type Department Care Team (Late st Contact Info) Description 06/28/2014 - 06/28/2014 11:59 PM CDT Hospital Encounter [facility] Naida, Ruth Cruz MD [address] [place] [address] Routine general medical examination at a health care facility; Osteoporosis Social History Tobacco Use Types Packs/Day Years Used Date Smoking Tobacco: Never Assessed Comments Unknown Sex and Gender Information Value Date Recorded Sex Assigned at Not on file 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 Gender Identity Not on file Sexual Orientation Not on file documented as of this encounter Medications at Time of Discharge pen needle, diabetic (BD ULTRA-FINE MINI PEN NEEDLE) 31 gauge x 3/16 needle BD U/F Pen Needle 31GAx 3/16 in, use one needle daily with Forteo Pen 12/04/2013 03/02/2019 teriparatide (FORTEO) 20 mcg/dose - 600 mcg/2.4 mL injection daily 12/04/2013 03/02/2019 documented as of this encounter Plan of Treatment Not on file documented as of this encounter Procedures Procedure Name Priority Date/Time Associated Diagnosis Comments DISCHARGE LABORATORY CUMULATIVE REPORT Routine 06/29/2014 9:10 AM CDT SERUM 25-HYDROXYCHOLECALCI FEROL (VITAMIN D) Routine 06/28/2014 10:48 AM CDT PLASMA BASIC METABOLIC PANEL Routine 06/28/2014 10:48 AM CDT documented in this encounter Results * Discharge Laboratory Cumulative Report (06/29/2014 9:10 AM CDT) 06/29/2014 9:10 AM CDT Narrative HISTORICAL RESULTS - 06/29/2014 9:10 AM CDT ? [facility] ? Department of Laboratories ? One [facility] ? [facility] [address] ?[facility] ? CAM 5th Fl Justin C Patient Name: ? LEXII ZAPATA TIFFANI Med Rec Number: ?? [id number] Date of : ?1945 Gender/Age: ? Female 68 years Doctor: ? Ruth Pascal M.D. Report Date/Time: 06/29/2014 09:10 ?* Abnormal ??C Critical ??f Footnote ??^ Corrected ??L Low ??H High ?i Interp Data ??@ Reference Lab ?Chart Type: Cumulative ? CHEMISTRY ? Standard Blood Chemistry ?06/28/2014 ?10:48:00 Test ?Units ?? Reference Sodium ?142 ? mmol/L ??135-145 Plasma Potassium ??4.4 ? mmol/L ??3.3-4.9 Chloride ?103 ? mmol/L ??97-110 Total CO2 ? 29 ?mmol/L ??22-32 Anion Gap ? 10 ?mmol/L ??0-16 BUN ? 23 ?mg/dL ?? 8-25 Creatinine ?0.82 ?mg/dL ?? 0.60-1.10 Glucose ? 88 ?mg/dL ?? 70-199 Total Calcium ? 10.0 ?mg/dL ?? 8.6-10.3 ?Other Chemistry ?06/28/2014 ?10:48:00 Test ?Units ??Reference 25 Hydroxy Vitamin D ??31 ?ng/mL ??30-100 Historical Provider MD LAB BLOOD ORDERABLES Samantha l Result Performing Organization Address [facility] de Phone Number HISTORICAL RESULTS * Serum 25-hydroxycholecalciferol (vitamin D) (06/28/2014 10:48 AM CDT) 25-OH Vit D 31 30 - 100 ng/ml HISTORICAL RESULTS Serum 06/28/2014 10:4 8 AM CDT Ruth Pascal MD LAB BLOOD ORDERABLES Final Result Performing Organization Address [facility] de Phone Number HISTORICAL RESULTS * Plasma basic metabolic panel (06/28/2014 10:48 AM CDT) Sodium 142 135 - 145 mmol/L HISTORICAL RESULTS K, pl 4.4 3.3 - 4.9 mmol/L HISTORICAL RESULTS Chloride 103 97 - 110 mmol/L HISTORICAL RESULTS CO2 29 22 - 32 mmol/L HISTORICAL RESULTS A. gap 10 0 - 16 mmol/L HISTORICAL RESULTS Glucose 88 70 - 199 mg/dl HISTORICAL RESULTS BUN 23 8 - 25 mg/dl HISTORICAL RESULTS Creatinine 0.82 0.60 - 1.10 mg/dl HISTORICAL RESULTS Calcium 10.0 8.6 - 10.3 mg/dl HISTORICAL RESULTS Plasma 06/28/2014 10:4 8 AM CDT Ruth Pascal MD LAB BLOOD ORDERABLES Final Result Performing Organization Address [facility] de Phone Number HISTORICAL RESULTS documented in this encounter Visit Diagnoses Diagnosis Routine general medical examination at a health care facility Osteoporosis Unspecified osteoporosis documented in this encounter
--- OUTSIDE RECORDS SUMMARY | 2024-11-06 08:49 | XMS_ITS | Encounter Summary ---
Author Organization [facility] Healthcare Address [address] [place] [address] Care Team Providers Care Financial Analyst Name Role Phone Arun Antonio MD Primary Care Provider [phone] Reason for Visit * Reason Onset Date Comments Test Results 10/15/2024 Encounter Details Date Type Department Care Team (Late st Contact Info) Description 10/15/2024 Telephone [facility] Con[facility]ient Care at [address] [address] Aure Vazquez MA Test Results Social History Tobacco Use Types Packs/Day Years Used Date Smoking Tobacco: Never Comments Unknown Sex and Gender Information Value Date Recorded Sex Assigned at Not on file Legal 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 ETIC LOCATER * Telephone Encounter - Aure Vazquez MA - 10/15/2024 9:17 AM CST ----- Message from Constanza Wilkerson NP sent at 10/15/2024 7:49 AM MAGNETIC LOCATER ----- Please alert patient that urine culture was negative. She can stop taking antibiotics if any were given for Urinary tract infection. If s/s persist, she should follow up with PCP. ETIC LOCATER documented in this encounter Plan of Treatment Not on file documented as of this encounter Visit Diagnoses Not on filedocumented in this encounter Care Teams Financial Analyst Relationship Specialty Start Date End Date Arun Antonio MD [address] [place] [address] PCP - General Family Practice 03/07/18 documented as of this encounter
--- OUTSIDE RECORDS SUMMARY | 2024-11-06 08:49 | XMS_ITS | Encounter Summary ---
Author Organization [facility] Address [address] [facility] [address] [place] [address] Phone Care Team Providers Care Patient Educator Name Role Phone Arun Antonio MD Primary Care Provider [phone] Reason for Visit * Reason Comments Osteoporosis * Diagnostic Imaging (Routine) - Closed Specialty Diagnoses / Procedures Referred By Contac t Referred To Contact Diagnoses Osteoporosis, unspecified osteoporosis type, unspecified pathological fracture presence Procedures Dexa Axial Skeleton Bone Density 1 or 2 Site Ruth Pascal MD Phone: tel: fax: [facility] (All Locations) Referral ID Status Reason Start Date Expiration Date Visits Re quested Visits Authorized [id number] Closed 03/09/2018 10/11/2019 1 1 Encounter Details Date Type Department Care Team (Latest Contact Info) Description 03/02/2019 10:10 AM CDT Clinical Support [facility] [address] [facility] [address] [place] [address] [place] [address] Osteoporosis, unspecified osteoporosis type, unspecified pathological fracture presence; Age-related osteoporosis without current pathological fracture Social History Tobacco Use Types Packs/Day Years Used Date Smoking Tobacco: Never Comments Unknown Sex and Gender Information Value Date Recorded Sex Assigned at Not on file 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 Gender Identity Not on file Sexual Orientation Not on file documented as of this encounter Plan of Treatment Not on file documented as of this encounter Procedures Procedure Name Priority Date/Time Associated Diagnosis Comments DEXA AXIAL SKELETON BONE DENSITY 1 OR MORE SITES Schedule Routine, Read Routine (OP Routine) 03/02/2019 10:28 AM CDT Osteoporosis, unspecified osteoporosis type, unspecified pathological fracture presence documented in this encounter Results * Dexa Axial Skeleton Bone Density 1 or 2 Site (03/02/2019 10:28 AM CDT) Anatomical Region Laterality Modality Body N/A Radiographic Nissa ging Narrative 03/02/2019 12:48 PM CDT Patient Name: Michaelle Lopez Date of : 1945 Date of scan: 03/02/2019 Bone mineral density was performed on a [email or web address] Discovery Densitometer. ?? Machine Cross-calibration and Precision studies have been performed with a least significant change of 0.024 g/cm at the spine, 0.020 g/cm at the total proximal femur, and 0.014g/cm at the forearm. HISTORY: ??This is a 73 y.o. postmenopausal female with a history of osteoporosis and thyroid disease. Currently on treatment with calcium, thyroid hormone and vitamin D. Previously treated with Actonel, Boniva, Evista and Forteo. History of tobacco use: Social History Tobacco Use Smoking Status Never Smoker INDICATIONS: Menopause status and history of osteoporosis. FINDINGS: BONE MINERAL DENSITY OF THE LUMBAR SPINE Bone Mineral Density (BMD) of the lumbar spine was measured from L1-L4 and the average density was calculated to be 0.802 gm/cm. This corresponds to a T-score standard deviations from the mean of young adults of -2.2. When compared to the previous study of 02/17/2018 there has been no significant change noted. BONE MINERAL DENSITY OF THE PROXIMAL FEMUR Bone Mineral Density (BMD) of the left hip total was found to be 0.736 gm/cm2. This corresponds to a T-score standard deviations from the mean of young adults of -1.7. Femoral neck is 0.543 gm/cm2 with a T-score of -2.8. When compared to the previous study of 02/17/2018 there has been no significant change noted. SUMMARY:Bone mineral density shows evidence of osteoporosis and marked increase risk of fracture.There has been no signicant changes in bone density since previous measurement. ADDITIONAL COMMENTS: If the patient has a history of a fragility fracture, a fracture that occurred with trauma equivalent to a fall from a standing position or less, then the diagnosis is osteoporosis. The risk of osteoporotic fracture increases approximately 2-fold for each 1.0 SD decrease in T-score. However, low bone density is not the only risk factor for fracture. Other factors include patient? s age, previous osteoporotic fracture or prior fracture as an adult, loss of height of greater than 2 inches, corticosteroid use, risk of falling, risk of injury, and family history of osteoporosis. Not everyone with low bone mineral density has osteoporosis. Osteomalacia and other metabolic bone disorders should also be considered where indicated. ??Patients who have osteoporosis should be evaluated for specific diseases and conditions (secondary causes) that may cause or contribute to bone loss. Consider repeating this study in 1-2 years to assess the patient? s response to treatment, if applicable. It is recommended that any follow up exam be performed on the same machine if possible for better accuracy. DEFINITIONS: Osteoporosis: ??BMD at or below -2.5 T-score Osteopenia (low bone mass): ??BMD between -1.0 and-2.5 T-score. The Bone Health Program adopts the following WHO definitions: Osteoporosis: ??BMD below -2.5 S.D. as compared to the BMD of young normal adults. Osteopenia or Low Bone Mass: ??BMD between -1.0 and -2.5 S.D. below the BMD of young normal adults. Normal Bone Density: ??BMD equal to or greater than -1.0 S.D. as compared to the BMD of young normal adults. References: 1) Ney, Annals of Internal Medicine 114(11): ??919-923 (1990) 2) Boone, Lancet 341 : 72-75 (1992) 3) Black, Journal Bone and Mineral Research 7(6): 633-8 (1991) 4) Robert, Journal Bone and Mineral Research 8(10):1227-33 (1992) The history and data sections of the bone mineral density scan were prepared by Ruthie Murillo who is accredited by the International Society of Clinical Densitometry. The overall patient assessment and scan interpretation were performed by Jett Sarmiento MD who is certified by the International Society of Clinical Densitometry. [id number] Ruth Pascal MD IMG DXA PROCEDURES Final R esult documented in this encounter Visit Diagnoses Diagnosis Osteoporosis, unspecified osteoporosis type, unspecified pathological fracture presence Age-related osteoporosis without current pathological fracture documented in this encounter Care Teams Patient Educator Relationship Specialty Start Date End Date Arun Antonio MD [address] [place] [address] PCP - General Family Practice 03/07/18 documented as of this encounter
--- OUTSIDE RECORDS SUMMARY | 2024-11-06 08:49 | XMS_ITS | Clinical Summary ---
Author Organization [address] Address [address] [place] [phone] Care Team Providers Care Accounting Clerk Name Role Phone Arun Antonio MD Primary Care Provider Allergies Active Allergy Reactions Criticality Noted Date Comments Other Other (See comments) Low 03/02/2019 Medications cholecalciferol (VITAMIN D-3) 1,000 unit daily Active calcium carbonate-vitam in D3 1,500 mg (600mg elemental) -800 unit per tablet 2 times daily Active levothyroxine (SYNTHROID, LEVOTHROID) 50 mcg tablet daily Active lisinopril (PRINIVIL,ZESTR IL) 20 mg tablet daily Active wqnypmca-yii-MX -lycopen-lutein (CENTRUM SILVER) 0.4-300-250 mg-mcg-mcg tablet daily Active pravastatin (PRAVACHOL) 20 mg tablet Active sertraline (ZOLOFT) 50 mg tablet Take 1 tablet (50 mg total) by mouth 2 (two) times a day 09/04/2024 Active levothyroxine (SYNTHROID) 75 mcg tablet Take 1 tablet (75 mcg total) by mouth daily 08/11/2024 Active lisinopriL (PRINIVIL,ZESTR IL) 5 mg tablet 08/25/2024 Act mare donepeziL (ARICEPT) 10 mg tablet Take 1 tablet (10 mg total) by mouth nightly 10/11/2024 Active rosuvastatin (CRESTOR) 20 mg tablet Take 1 tablet (20 mg total) by mouth daily 08/11/2024 Active Active Problems Problem Noted Date Diagnosed Date Osteoporosis 11/10/2012 Encounter for preventive health examination 07/26 Encounters Date Type Department Care Team Description 10/15/2024 Telephone [facility] Medical [facility]ient Care at [address] [phone] Aure Vazquez MA Test Results 10/13/2024 8:12 PM CARD ROOM MANAGER - 10/13/2024 11:59 PM CARD ROOM MANAGER Hospital Encounter [address] [address] Altered mental status, unspecified altered mental status type Discharge Disposition: Discharge to home or self care 10/13/2024 1:30 PM CARD ROOM MANAGER Office Visit [facility] Medical Group Con[facility]ient Care at [address] [phone] Constanza Wilkerson NP Altered mental status, unspecified altered mental status type (Primary Dx) from Last 3 Months Social History Tobacco Use Types Packs/Day Years Used Date Smoking Tobacco: Never Comments Unknown Sex and Gender Information Value Date Recorded Sex Assigned at Not on file Legal Sex Female 10:10 AM CARD ROOM MANAGER Gender Identity Not on file Sexual Orientation Not on file Obstetrics History Last Filed Vital Signs Vital Sign Reading Time Taken Comments Blood Pressure 108/76 10/13/2024 1:48 PM CARD ROOM MANAGER Pulse 76 10/13/2024 1:48 PM CARD ROOM MANAGER Temperature 36.7 ??C (98.1 ??F) 10/13/2024 1:48 PM CS T Respiratory Rate 18 10/13/2024 1:48 PM CARD ROOM MANAGER Oxygen Saturation 97% 10/13/2024 1:48 PM CARD ROOM MANAGER Inhaled Oxygen Concentration - - Weight 54.9 kg (121 lb) 10/13/2024 1:48 PM CARD ROOM MANAGER Height 163.8 cm (5' 4.5 ) 03/02/2019 10:23 AM CD T Body Mass Index 20.45 03/02/2019 10:23 AM CDT Plan of Treatment Health Maintenance Due Date Last Done Comments Depression Screening 1945 Fall Risk Assessment 1945 Hepatitis B Screening 1962 Well Visit 65+ 2009 Zoster Vaccine (2 of 2) 04/21/2019 02/24/2019, 12/06 Osteoporosis Screening-Bone Density Scan 03/02/2021 03/02/2019, 02/17/2018, 02/11/2017, Additional history exists DTaP/Tdap/Td Vaccine (2 - Td or Tdap) 04/08/2027 04/08/2017 Pneumococcal vaccine 65+ Completed 06/25/2017, 08/25 Covid-19 Vaccine Completed 07/21/2024, , 09/18/2022, Additional history exists Influenza Vaccine Completed 07/21/2024, , 07/11/2022, Additional history exists Procedures Procedure Name Priority Date/Time Associated Diagnosis Comments URINE CULTURE Routine 10/13/2024 4:00 PM CARD ROOM MANAGER Altered mental status, unspecified altered mental status type POCT URINALYSIS DIPSTICK Routine 10/13/2024 1:54 PM CARD ROOM MANAGER Altered mental status, unspecified altered mental status type DEXA AXIAL SKELETON BONE DENSITY 1 OR MORE SITES Schedule Routine, Read Routine (OP Routine) 03/02/2019 10:28 AM CDT Osteoporosis, unspecified osteoporosis type, unspecified pathological fracture presence from Last 3 Months or Most Recently Relevant to Health Maintenance Results * Urine culture Urine, clean voided (10/13/2024 4:00 PM CARD ROOM MANAGER) Report Final Report: Less than 100,000 colonies/mL (clinically insignificant growth based on current clinical standards) Comment:Testing performed by : [facility], [address] [facility], [place]., [address] Organism (CLINICALLY INSIGNIFICANT GROWTH [facility]UCKER Urine, clean voided 10/13/2024 4:00 PM CARD ROOM MANAGER 10/14/2024 12:06 AM CARD ROOM MANAGER Narrative TUCKER - 10/15/2024 7:48 AM CARD ROOM MANAGER Testing performed by [facility] Microbiology Laboratory ([phone]) Constanza M. Trower CUSTOMS AGENT LAB MICROBIOLOGY - GENERAL ORD ERABLES Final Result [facility] [address] Department [place] [address] * (ABNORMAL) POCT urinalysis dipstick (10/13/2024 1:54 PM CARD ROOM MANAGER) Color, Urine, POC Yellow Clarity, ur, POC Cloudy(A) Clear Glucose, ur, POC Negative Negative MG/DL Bilirubin, ur, POC Negative Negative, Small, Moderate, Large Ketones, ur, POC Negative Negative Specific Staples, POC 1.025 1.003 - 1.030 Blood, ur, POC Hemolyzed, trace(A) Negative pH, ur, POC 6.5 5.0 - 8.0 Protein, ur, POC Trace(A) Negative Urobilinogen, urine, POC 1.0 0.2 - 1.0 mg/dL Nitrite, ur, POC Negative Negative Leukocytes, ur, POC Negative Negative Lot Number [id number] Urine 10/13/2024 1:54 PM CARD ROOM MANAGER Constanza Wilkerson NP POINT OF CARE TEST ORDERABLES Final Result * Dexa Axial Skeleton Bone Density 1 or 2 Site (03/02/2019 10:28 AM CDT) Anatomical Region Laterality Modality Body N/A Radiographic Nissa ging Narrative 03/02/2019 12:48 PM CDT Patient Name: Michaelle Zapata Date of : 1945 Date of scan: 03/02/2019 Bone mineral density was performed on a HoloBitstrips Discovery Densitometer. ?? Machine Cross-calibration and Precision [...] of Internal Medicine 114(11): ??919-923 (1990) 2) Mely, Lancet 341 : 72-75 (1992) 3) Oz, Journal Bone and Mineral Research 7(6): 633-8 [...] by the International Society of Clinical Densitometry. [id number] Ruth Pascal MD IMG DXA PROCEDURES Final R esult from Last 3 Months or Most Recently Relevant to Health Maintenance Insurance [facility] [place]. [id number] [place] [address] MEDICARE [facility] [place] [address] MEDICARE Care Teams Accounting Clerk Relationship Specialty Start Date End Date Arun Antonio MD [address] [place] [address] PCP - General Family Practice 03/07/18
--- OUTSIDE RECORDS SUMMARY | 2024-11-06 08:49 | XMS_ITS | Encounter Summary ---
Author Organization [facility] Address [address] [place] [address] Phone Care Team Providers Care Tube Winder Hand Name Role Phone Arun Antonio MD Primary Care Provider [phone] Reason for Referral * Diagnostic Imaging (Routine) - Closed Specialty Diagnoses / Procedures Referred By Contac t Referred To Contact Diagnoses Osteoporosis, unspecified osteoporosis type, unspecified pathological fracture presence Procedures Dexa Axial Skeleton Bone Density 1 or 2 Site Ruth Pascal MD Phone: tel: fax: [facility] (All Locations) Referral ID Status Reason Start Date Expiration Date Visits Re quested Visits Authorized [id number] Closed 03/09/2018 10/11/2019 1 1 Encounter Details Date Type Department Care Team (Late st Contact Info) Description 03/09/2018 Orders Only [facility] Bone Health [address] [facility] 5th [place] [address] [place] [phone] Ruth Pascal MD [address] [place] [address] Osteoporosis, unspecified osteoporosis type, unspecified pathological fracture presence (Primary Dx) Social History Tobacco Use Types Packs/Day Years Used Date Smoking Tobacco: Never Comments Unknown Sex and Gender Information Value Date Recorded Sex Assigned at Not on file Legal Sex Female 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 ?? Machine Cross-calibration and Precision [...] by the International Society of Clinical Densitometry. [id number] us Ruth Pascal MD IMG DXA PROCEDURES Final R esult documented in this encounter Visit Diagnoses Diagnosis Osteoporosis, unspecified osteoporosis type, unspecified pathological fracture presence- Primary Osteoporosis, unspecified osteoporosis type, unspecified pathological fracture presence Age-related osteoporosis without current pathological fracture documented in this encounter Care Teams Tube Winder Hand Relationship Specialty Start Date End Date Arun Antonio MD [address] [place] [address] PCP - General Family Practice 03/07/18 documented as of this encounter
--- OUTSIDE RECORDS SUMMARY | 2024-11-06 08:49 | XMS_ITS | Referral Summary ---
Author Organization [address] Address [address] [place] [phone] Care Team Providers Care Radiology Asst Name Role Phone Arun Antonio MD Primary Care Provider [phone] Encounters Date Type Department Care Team Description 10/15/2024 Telephone [facility] Medical Group Convenient Care at [address] [phone] Aure Vazquez MA Test Results 10/13/2024 8:12 PM 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 - 10/13/2024 11:59 PM 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 Hospital Encounter [address] [address] Altered mental status, unspecified altered mental status type Discharge Disposition: Discharge to home or self care 10/13/2024 1:30 PM 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 Office Visit [facility] Medical [facility] Care at [address] [phone] Constanza Wilkerson NP Altered mental status, unspecified altered mental status type (Primary Dx) from Last 3 Months Allergies Active Allergy Reactions Criticality Noted Date Comments Other Other (See comments) Low 03/02/2019 Medications cholecalciferol (VITAMIN D-3) 1,000 unit daily Active calcium carbonate-vitam in D3 1,500 mg (600mg elemental) -800 unit per tablet 2 times daily Active levothyroxine (SYNTHROID, LEVOTHROID) 50 mcg tablet daily Active lisinopril (PRINIVIL,ZESTR IL) 20 mg tablet daily Active hreaxbht-bao-[place] -lycopen-lutein (CENTRUM SILVER) 0.4-300-250 mg-mcg-mcg tablet daily [...] 11/10/2012 Encounter for preventive health examination 07/26 Social History Tobacco Use Types Packs/Day Years Used Date Smoking Tobacco: Never Comments Unknown Sex and Gender Information Value Date Recorded Sex Assigned at Not on file Legal Sex Female 10:10 AM 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 Gender Identity Not on file Sexual Orientation Not on file Last Filed Vital Signs Vital Sign Reading Time Taken Comments Blood Pressure 108/76 10/13/2024 1:48 PM 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 Pulse 76 10/13/2024 1:48 PM 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 Temperature 36.7 ??C (98.1 ??F) 10/13/2024 1:48 PM CS T Respiratory Rate 18 10/13/2024 1:48 PM 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 Oxygen Saturation 97% 10/13/2024 1:48 PM 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 Inhaled Oxygen Concentration - - Weight 54.9 kg (121 lb) 10/13/2024 1:48 PM 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 Height 163.8 cm (5' 4.5 ) 03/02/2019 10:23 AM CD T Body Mass Index 20.45 03/02/2019 10:23 AM CDT Plan of Treatment Not on file Procedures Procedure Name Priority Date/Time Associated Diagnosis Comments URINE CULTURE Routine 10/13/2024 4:00 PM 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 Altered mental status, unspecified altered mental status type POCT URINALYSIS DIPSTICK Routine 10/13/2024 1:54 PM 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 Altered mental status, unspecified altered mental status type DEXA AXIAL SKELETON BONE DENSITY 1 OR MORE SITES Schedule Routine, Read Routine (OP Routine) 03/02/2019 10:28 AM CDT Osteoporosis, unspecified osteoporosis type, unspecified pathological fracture presence from Last 3 Months or Most Recently Relevant to Health Maintenance Results * Urine culture Urine, clean voided (10/13/2024 4:00 PM 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) Report Final Report: Less than 100,000 colonies/mL (clinically insignificant growth based on current clinical standards) Comment:Testing performed by : [facility], [address] [place]., [address] Organism (CLINICALLY INSIGNIFICANT GROWTH [facility] Urine, clean voided 10/13/2024 4:00 PM 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 10/14/2024 12:06 AM 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 Narrative [facility] - 10/15/2024 7:48 AM 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 Testing performed by [facility] Microbiology Laboratory ([phone]) us Constanza Wilkerson NP LAB MICROBIOLOGY - GENERAL ORD ERABLES Final Result [facility] [address] Department [place] [address] * (ABNORMAL) POCT urinalysis dipstick (10/13/2024 1:54 PM 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) Color, Urine, POC Yellow Clarity, ur, POC Cloudy(A) Clear Glucose, ur, POC Negative Negative MG/DL Bilirubin, ur, POC Negative Negative, Small, Moderate, Large Ketones, ur, POC Negative Negative Specific [place], POC 1.025 1.003 - 1.030 Blood, ur, POC Hemolyzed, trace(A) Negative pH, ur, POC 6.5 5.0 - 8.0 Protein, ur, POC Trace(A) Negative Urobilinogen, urine, POC 1.0 0.2 - 1.0 mg/dL Nitrite, ur, POC Negative Negative Leukocytes, ur, POC Negative Negative Lot Number [id number] Urine 10/13/2024 1:54 PM 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 Constanza Wilkerson NP POINT OF CARE TEST ORDERABLES Final Result * Dexa Axial Skeleton Bone Density 1 or 2 Site (03/02/2019 10:28 AM CDT) Anatomical Region Laterality Modality Body N/A Radiographic Nissa ging Narrative 03/02/2019 12:48 PM CDT Patient Name: Lexii Zapata Date of : 1945 Date of scan: 03/02/2019 Bone mineral density was performed on a Mind[employer] Discovery Densitometer. ?? Machine Cross-calibration and Precision [...] by the International Society of Clinical Densitometry. [id number] Ruth Pascal MD IMG DXA PROCEDURES Final R esult from Last 3 Months or Most Recently Relevant to Health Maintenance Insurance [place] [phone] [place] [address] [facility] [place] [phone] MEDICARE Care Teams Radiology Asst Relationship Specialty Start Date End Date Arun Antonio MD [address] [place] [address] PCP - General Family Practice 03/07/18
--- OUTSIDE RECORDS SUMMARY | 2024-11-06 08:49 | XMS_ITS | Encounter Summary ---
Author Organization [facility] Address [address] [place] [address] Phone Care Team Providers Care Clinic Cma Name Role Phone Arun Antonio MD Primary Care Provider [phone] Encounter Details Date Type Department Care Team (Late st Contact Info) Description 03/02/2019 10:40 AM CDT Office Visit [facility] [address] [facility] 5th [place] [address] [place] [address] Ruth Pascal MD [address] [place] [address] Age-related osteoporosis without current pathological fracture (Primary Dx) Social History Tobacco Use Types Packs/Day Years Used Date Smoking Tobacco: Never Comments Unknown Sex and Gender Information Value Date Recorded Sex Assigned at Not on file 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 Gender Identity Not on file Sexual Orientation Not on file documented as of this encounter Last Filed Vital Signs Vital Sign Reading Time Taken Comments Blood Pressure 119/75 03/02/2019 10:23 AM CDT Pulse 65 03/02/2019 10:23 AM CDT Temperature 36.6 ??C (97.8 ??F) 03/02/2019 10:23 AM C DT Respiratory Rate - - Oxygen Saturation - - Inhaled Oxygen Concentration - - Weight 76.7 kg (169 lb) 03/02/2019 10:23 AM CDT Height 163.8 cm (5' 4.5 ) 03/02/2019 10:23 AM CD T Body Mass Index 28.56 03/02/2019 10:23 AM CDT documented in this encounter Progress Notes * Ruth Pascal MD - 03/02/2019 12:00 AM CDT PATIENT NAME: LEXII ZAPATA : 1945 SATNAM: 03/02/2019 HISTORY OF PRESENT ILLNESS: Ms. Barbara Zapata is a 73-year-old woman with a history osteoporosis who is currentlyon a drug holiday after completing 23 months of Forteo followed by 2 years of Boniva therapy. Priorto me seeing her for the first time in 2012, she had been treated in a previous doctor's office with 4 years of Evista, and then she was on Fosamax from 2005 to 2007 and Actonel from 2007 to 2011. When she came to see me for the first time in 2012, evaluation for secondary causes of osteoporosis was negative and a fasting osteocalcin at that visit was low at 11 and telopeptide was low at 115. It was decided to give her a drug holiday for a year. When she returned, she was osteoporotic and that is when we decided to treat her with Forteo. A summary of what happened while she was on Forteo can be found in my detailed note of 02/17/2018. Suffice it to say that after we completed Forteo, I wanted to give her IV Reclast, but she was reluctant to do that and that is why she went on the oral medications. When she saw me last year, she was in the low bone mass range of both her hip and her spine and so she was given a year off from therapy. She returns today and says she is in excellent health and has no change in her health. She had cataract surgery this past year. In terms of her on a calcium and vitamin D, she does not remember what she is taking, but she says is unchanged from what she took the previous year which looks to be that she is on a calcium and vitamin D supplement that gives her 600 mg of calcium and 800 international units of vitamin D and in addition to that, she takes another 2000 international units of vitamin D. In addition to both of those things, she also takesa multivitamin and it is unclear how much calcium and vitamin D this contains. In terms of exercise she uses a machine where she pushes her legs as if she was walking and moves her arms at the same time, for 30 to 45 minutes a day and she does this anywhere from 4 to 6 times a week depending on her other activities. CURRENT MEDICATIONS: 1. Pravastatin 20 mg a day. 2. Lisinopril 20 mg a day. 3. Synthroid 50 mcg a day. 4. Calcium and vitamin D. 5. Multivitamin we talked about above. REVIEW OF SYSTEMS: It is completely negative for everything new including general symptoms, head, ears, eyes, nose, and throat, cardiovascular, respiratory, GI, , neurologic, and most notably musculoskeletal. PHYSICAL EXAM: GENERAL: Today, she is a well-developed, well-nourished woman, no acute distress. VITAL SIGNS: Blood pressure is 119/75, pulse is 65, temperature is 97.8. Weight is 169 pounds. Height is 5 feet 4.5 inches. SPINE: She has no tenderness. LUNGS: Clear. MUSCULOSKELETAL: She has normal motor strength of upper and lower extremities bilaterally. BONE MINERAL DENSITY: Bone mineral density of the spine is measured from L1-L4 and the average density was calculated to be 0.802 g/cm??. This corresponds to a T-score standard deviation from the mean of young adults of -2.2. When compared to the previous study of 02/17/2018 there has been no significant change noted. Bone mineral density of the left hip was found to be 0.736 g/cm??. This corresponds to a T- score standard deviation from the mean of young adults of -1.7. Femoral neck is 0.543 g/cm?? with a T-score of-2.8. When compared with the previous study of 02/17/2018, there has been no significant change noted. Bone mineral density shows evidence of osteoporosis. ASSESSMENT AND PLAN: There has been no significant change in bone mineral density, but the fact that her T-score is -2.8puts her in the osteoporotic range. We are going to get a BMP and 25-vitamin D today. I have strongly encouraged the patient to get Reclast if it is safe for her to get it once we have checked her creatinine level as she has had no problems with the oral bisphosphonates in the past. She is thinking about this. Further disposition pending labs. ELECTRONICALLY SIGNED - 03/02/2019 08:16 PM Ruth Pascal M.D. radar scientist FADY/zack documented in this encounter Plan of Treatment Not on file documented as of this encounter Results * Vitamin D 25 hydroxy (03/02/2019 11:30 AM CDT) Vitamin D 52.6 30.0 - 100.0 ng/mL [facility] Comment: VITAMIN D DEFICIENCY = LESS THAN or EQUAL TO 20 ng/mL ? VITAMIN D INSUFFICIENCY = GREATER THAN 20 AND LESS THAN 30 ng/mL ? RECOMMENDED NORMAL RANGE = 30-100 ng/mL Blood specimen (specimen) 03/02/2019 11:30 AM CDT 03/02/2019 11:58 AM CDT us Ruth Pascal MD LAB BLOOD ORDERABLES Final Result [facility] * (ABNORMAL) Basic metabolic panel (03/02/2019 11:30 AM CDT) Glucose 106(H) 64 - 99 mg/dL [facility] Comment: NONFASTING GLUCOSE RANGE = 64-199 mg/dL [...] 10.3 mg/dL [facility] eGFR NON-AFR. CITIZEN [place] 49.4(L) >60.0 mL/min/1.7 3 m2 [facility] eGFR 57.3(L) >60.0 mL/min/1.7 3 m2 [facility] Blood specimen (specimen) 03/02/2019 11:30 AM CDT 03/02/2019 11:58 AM CDT us Ruth Pascal MD LAB BLOOD ORDERABLES Final Result [facility] documented in this encounter Visit Diagnoses Diagnosis Age-related osteoporosis without current pathological fracture- Primary documented in this encounter Discontinued Medications Medication Sig Discontinue Reason Start Date End Da te aspirin 81 mg enteric coated tablet Take as directed Other 03/02/2019 ibandronate (BONIVA) 150 mg tablet TAKE 1 TABLET ONCE MONTHLY WITH 8 TO 10 OUNCES OF WATER. STAY UPRIGHT AND DO NOT EAT OR DRINK FOR 1 HOUR. Other 02/06/2016 03/02/2019 omega 0-mpg-gmz-fish oil (FISH OIL) 100-160-1,000 mg capsule 2 times daily Other 03/02/2019 pen needle, diabetic (BD ULTRA-FINE MINI PEN NEEDLE) 31 gauge x 3/16 needle BD U/F Pen Needle 31GAx 3/16 in, use one needle daily with Forteo Pen Other 12/04/2013 03/02/2019 teriparatide (FORTEO) 20 mcg/dose - 600 mcg/2.4 mL injection daily Other 12/04/2013 03/02/2019 rosuvastatin (CRESTOR) 40 mg tablet Other 12/28/2018 03/02/2019 vitamins A,C,G-cxra-clubkx (ICAPS AREDS) 14,320-226-200 grvv-nv-gmnd capsule Take as directed Other 03/02/2019 documented as of this encounter Care Teams Clinic Cma Relationship Specialty Start Date End Date Arun Antonio MD [address] [place] [address] PCP - General Family Practice 03/07/18 documented as of this encounter
--- OUTSIDE RECORDS SUMMARY | 2024-11-06 08:49 | XMS_ITS | Encounter Summary ---
Author Organization [facility] Address [address] [facility] [address] [place] [address] Phone Care Team Providers Care Civil Service Clerk Name Role Phone Arun Antonio MD Primary Care Provider [phone] Reason for Visit * Reason Onset Date Comments Treatment Plan Update 03/16/2019 Reclast Encounter Details Date Type Department Care Team (Late st Contact Info) Description 03/16/[address] [facility] [address] [place] [address] Ruth Pascal MD [address] [place], [place] [id number] Treatment Plan Update (Reclast) Social History Tobacco Use Types Packs/Day Years Used Date Smoking Tobacco: Never Comments Unknown Sex and Gender Information Value Date Recorded Sex Assigned at Not on file Legal Sex Female 10:10 AM [employer]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 * Telephone Encounter - Dustin Astudillo MA - 03/16/2019 3:23 PM CDT ----- Message from Ruth Pascal MD sent at 03/06/2019 8:25 AM CDT ----- Lets go ahead and give her reclast. I have spoken with her and she is waiting to hear from you. documented in this encounter Plan of Treatment Not on file documented as of this encounter Visit Diagnoses Not on filedocumented in this encounter Care Teams Civil Service Clerk Relationship Specialty Start Date End Date Arun Antonio MD [address] [place] [address] PCP - General Family Practice 03/07/18 documented as of this encounter
--- OUTSIDE RECORDS SUMMARY | 2024-11-06 08:49 | XMS_ITS | Encounter Summary ---
Author Organization [facility] Healthcare Address [address] [place] [address] Care Team Providers Care [employer] Freight Car Cleaner Name Role Phone Arun Antonio MD Primary Care Provider [phone] Reason for Visit * Reason Comments Altered Mental Status Encounter Details Date Type Department Care Team (Late st Contact Info) Description 10/13/2024 1:30 PM BEAUTY DIRECTOR Office Visit [facility] at [address] [address] Constanza Wilkerson NP [address] [place] [address] Altered mental status, unspecified altered mental status type (Primary Dx) Social History Tobacco Use Types Packs/Day Years Used Date Smoking Tobacco: Never Assessed Comments Unknown Sex and Gender Information Value Date Recorded Sex Assigned at Not on file Legal Sex Female 10:10 AM BEAUTY DIRECTOR Gender Identity Not on file Sexual Orientation Not on file documented as of this encounter Last Filed Vital Signs Vital Sign Reading Time Taken Comments Blood Pressure 108/76 10/13/2024 1:48 PM BEAUTY DIRECTOR Pulse 76 10/13/2024 1:48 PM BEAUTY DIRECTOR Temperature 36.7 ??C (98.1 ??F) 10/13/2024 1:48 PM CS T Respiratory Rate 18 10/13/2024 1:48 PM BEAUTY DIRECTOR Oxygen Saturation 97% 10/13/2024 1:48 PM BEAUTY DIRECTOR Inhaled Oxygen Concentration - - Weight 54.9 kg (121 lb) 10/13/2024 1:48 PM BEAUTY DIRECTOR Height - - Body Mass Index 20.45 03/02/2019 10:23 AM CDT documented in this encounter Patient Instructions * Patient Instructions* Constanza Wilkerson NP - 10/13/2024 1:30 PM BEAUTY DIRECTOR --Urine culture sent --Pt to follow up with PCP in 1 week --If symptoms worsen, ER for workup TY DIRECTOR * Attachments The following attachments cannot be sent through Care Everywhere. * Altered Mental Status (General Information) (French) documented in this encounter Progress Notes * Constanza Wilkerson NP - 10/13/2024 1:30 PM CST Images from the original note were not included. Subjective/Objective Patient ID: Michaelle Lopez is a 79 y.o. female. Chief Complaint Altered Mental Status Patient presents to the clinic with her son with reports of increased confusion over the past several days. Son reports that her care center is worried for possible urinary infection. The son reportsthat the patient currently has a polyp in her uterus that has caused some vaginal bleeding, this has been diagnose through the ER and she is scheduled to get it removed in the next couple weeks. Denies fevers, vomiting, diarrhea, and abdominal pain. She has taken Tylenol for her symptoms. Review of Systems Constitutional: Negative for chills and fever. Respiratory: Negative. Cardiovascular: Negative. Gastrointestinal: Negative for abdominal pain, diarrhea, nausea and vomiting. Genitourinary: Negative for difficulty urinating, dysuria, flank pain, frequency, hematuria, pelvicpain, urgency, vaginal bleeding and vaginal discharge. Neurological: Negative for headaches. Psychiatric/Behavioral: Positive for confusion. Physical Exam Vitals reviewed. Constitutional: General: She is not in acute distress. Appearance: Normal appearance. She is not ill-appearing. HENT: Head: Normocephalic. Cardiovascular: Rate and Rhythm: Normal rate and regular rhythm. Pulmonary: Effort: Pulmonary effort is normal. Breath sounds: Normal breath sounds. Abdominal: General: Bowel sounds are normal. There is no distension. Palpations: Abdomen is soft. Tenderness: There is no abdominal tenderness. There is no right CVA tenderness, left CVA tendernessor guarding. Skin: General: Skin is warm. Neurological: Mental Status: She is alert and oriented to person, place, and time. Psychiatric: Behavior: Behavior is cooperative. Vitals: 10/13/24 1348 BP: 108/76 Pulse: 76 Resp: 18 Temp: 36.7 ??C (98.1 ??F) TempSrc: Oral SpO2: 97% Weight: 54.9 kg (121 lb) Assessment/Plan --likely not acute cystitis 2/2 UA largely unremarkable --urine culture, pending. Will advise according to result. --discussed signs and symptoms of infection warranting immediate evaluation including increased pain, fever, redness, warmth, red streaking or new drainage from vagina. --f/u with PCP in 5-7 days if symptoms persist/worsen Diagnoses and all orders for this visit: Altered mental status, unspecified altered mental status type (Primary) - POCT urinalysis dipstick - Urine culture Urine, clean voided; Future Recent Results (from the past 4 hours) POCT urinalysis dipstick Collection Time: 10/13/24 1:54 PM Result Value Ref Range Color, Urine, POC Yellow Clarity, ur, POC Cloudy (A) Clear Glucose, ur, POC Negative Negative MG/DL Bilirubin, ur, POC Negative Negative, Small, Moderate, Large Ketones, ur, POC Negative Negative Specific [place], POC 1.025 1.003 - 1.030 Blood, ur, POC Hemolyzed, trace (A) Negative pH, ur, POC 6.5 5.0 - 8.0 Protein, ur, POC Trace (A) Negative Urobilinogen, urine, POC 1.0 0.2 - 1.0 mg/dL Nitrite, ur, POC Negative Negative Leukocytes, ur, POC Negative Negative Lot Number [id number] Patient Education: Altered Mental Status WHAT YOU NEED TO KNOW: What is altered mental status? Altered mental status (AMS) is a disruption in how your brain works that causes a change in behavior. This change can happen suddenly or over days. AMS ranges from slight confusion to total disorientation and increased sleepiness to coma. What causes AMS? AMS can be caused by physical, psychological, and environmental factors. In older adults, AMS may be caused by a combination of these factors. The following are some of the most common causes of AMS: Diseases or conditions in the body that can affect your brain and nervous system: Hypoxia (low oxygen levels) Low or high blood sugar levels, or diabetic ketoacidosis Heart attack Dehydration, low or high blood sodium levels Thyroid or adrenal gland disease Urinary tract infection or renal failure Diseases or conditions within your skull: Seizures Head traumas, concussions Brain tumors or strokes Brain disease, such as encephalopathy High altitude cerebral edema (brain tissue swelling at high altitude) Other factors: English Hypothermia (low body temperature), hyperthermia (high body temperature), or heat stroke Toxic plants, such as mushrooms Carbon monoxide Drug or alcohol withdrawal Psychiatric problems What factors increase the risk for AMS? Older adults may have AMS after changes in their medicines, heart attacks, or hip fractures. Infections, such as urinary tract infections or pneumonia, can also increase the risk for AMS. A medical history of high blood pressure, heart problems, diabetes, or psychiatric illness increases the risk for AMS. What are the signs and symptoms of AMS? You, or those close to you, will notice changes in how you think and in your awareness, movements, and routines. The following are some of the more common signs: Lack of concentration or forgetfulness Slow responses Hallucinations and changes in sleep patterns Decreased or increased movement Agitation or rambling speech Cannot or will not follow reasonable requests Cannot be aroused from sleep How is AMS diagnosed? Your healthcare provider will do a physical exam and ask you and your family about your usual mental status. The provider will want know if the changes happened suddenly or overtime. Tell the provider about recent events, such as falls or other traumas or illnesses. Witnessesmay be asked about your behavior. Your provider will ask about the medicines you take and any problems with substance abuse. You may also need the following tests to learn the cause of your AMS: A neurological exam tells healthcare providers if you are having problems with your brain or nerves. During the exam, your reflexes will be tested. Vital signs give healthcare providers information about your current health. Healthcare providers will check your blood pressure, heart rate, breathing rate, and temperature. They will also ask aboutyour pain. They will measure the amount of oxygen in your blood with a device called a pulse oximeter. Blood tests are done to check the function of your liver, kidneys, and lungs. They will also show if you have an infection or other toxins in your body. Your blood glucose level will also be checked. A chest x-ray is a picture of your lungs and heart. Healthcare providers use the x-ray to look for signs of infection, such as pneumonia, that could be causing your AMS. A CT scan is also called a CAT scan. An x-ray machine uses a computer to take pictures of your head. The pictures may show a tumor, swelling, or bleeding on the brain. A lumbar puncture is also called a spinal tap. During a lumbar puncture, you will need to lie still. Healthcare providers may give you medicine to numb a small area of your back. A needle will be putin and fluid will be removed from around your spinal cord. The fluid will be sent to a lab for tests. The tests check for infection, bleeding around your brain and spinal cord, or other problems. How is AMS treated? Treatment will depend on the cause of your AMS. Treatments with oxygen and medicines may be needed to improve your symptoms. You may be placed in the hospital if your symptoms aresevere. When should I or someone close to me contact my healthcare provider? You have sudden changes in behavior. You are more sleepy or confused than usual. You have questions or concerns about your condition or care. When should I or someone close to me seek immediate care? Your speech is slurred or you are rambling. You have a seizure. You are not able to move any part of your body freely. You cannot be woken up. CARE AGREEMENT: You have the right to help plan your care. Learn about your health condition and how it may be treated. Discuss treatment options with your healthcare providers to decide what care you want to receive. You always have the right to refuse treatment. The above information is an biomedical engineering aide only. It is not intended as medical advice for individual conditions or treatments. Talk to your doctor, nurse or pharmacist before following any medical regimen to see if it is safe and effective for you. ?? Copyright [employer] 2021 Information is for End User's use only and may not be sold, redistributed or otherwise used for commercial purposes. All illustrations and images included in CareNotes?? are the copyrighted property of [employer], [employer] or [employer] [facility] Treatment plan including expectations, follow up, and return precautions discussed with patient/parent, verbalizes understanding. Medication dosage, use, and potential adverse reactions discussed with patient/parent. Advised to follow up with PCP if symptoms do not resolve as expected or sooner if condition worsens. Signs/symptoms warranting ER evaluation reviewed. Patient and/or guardian was given an opportunity to ask questions, questions answered. Constanza Wilkerson NP 10/13/24 2:04 PM This office note has been partially dictated using [employer] software, and as a result portions of the record may have been created with this software. Occasional wrong-word or 'jfegh-n-moww' substitutions may have occurred due to the inherent limitations of voice recognition software. Read the chartcarefully and recognize, using context, where substitutions have occurred. TY DIRECTOR documented in this encounter Plan of Treatment Not on file documented as of this encounter Procedures Procedure Name Priority Date/Time Associated Diagnosis Comments POCT URINALYSIS DIPSTICK Routine 10/13/2024 1:54 PM BEAUTY DIRECTOR Altered mental status, unspecified altered mental status type documented in this encounter Results * Urine culture Urine, clean voided (10/13/2024 4:00 PM BEAUTY DIRECTOR) Report Final Report: Less than 100,000 colonies/mL (clinically insignificant growth based on current clinical standards) Comment:Testing performed by : [facility], [address] [facility] [place] [address] Organism (CLINICALLY INSIGNIFICANT GROWTH TUCKER Urine, clean voided 10/13/2024 4:00 PM BEAUTY DIRECTOR 10/14/2024 12:06 AM BEAUTY DIRECTOR Narrative TUCKER - 10/15/2024 7:48 AM BEAUTY DIRECTOR Testing performed by [facility] ([phone]) us Constanza Wilkerson NP LAB MICROBIOLOGY - GENERAL ORD ERABLES Final Result TUCKER ROY [address] Department [place] [address] * (ABNORMAL) POCT urinalysis dipstick (10/13/2024 1:54 PM BEAUTY DIRECTOR) Color, Urine, POC Yellow Clarity, ur, POC Cloudy(A) Clear Glucose, ur, POC Negative Negative MG/DL Bilirubin, ur, POC Negative Negative, Small, Moderate, Large Ketones, ur, POC Negative Negative Specific [place], POC 1.025 1.003 - 1.030 Blood, ur, POC Hemolyzed, trace(A) Negative pH, ur, POC 6.5 5.0 - 8.0 Protein, ur, POC Trace(A) Negative Urobilinogen, urine, POC 1.0 0.2 - 1.0 mg/dL Nitrite, ur, POC Negative Negative Leukocytes, ur, POC Negative Negative Lot Number [id number] Urine 10/13/2024 1:54 PM BEAUTY DIRECTOR Constanza Wilkerson NP POINT OF CARE TEST ORDERABLES Final Result documented in this encounter Visit Diagnoses Diagnosis Altered mental status, unspecified altered mental status type- Primary Altered mental status, unspecified altered mental status type documented in this encounter Historical Medications * This list may reflect changes made after this encounter. rosuvastatin (CRESTOR) 20 mg tablet Take 1 tablet (20 mg total) by mouth daily 08/11/2024 donepeziL (ARICEPT) 10 mg tablet Take 1 tablet (10 mg total) by mouth nightly 10/11/2024 lisinopriL (PRINIVIL,ZESTRIL ) 5 mg tablet 08/25/2024 levothyroxine (SYNTHROID) 75 mcg tablet Take 1 tablet (75 mcg total) by mouth daily 08/11/2024 sertraline (ZOLOFT) 50 mg tablet Take 1 tablet (50 mg total) by mouth 2 (two) times a day 09/04/2024 added in this encounter Care Teams [employer] Freight Car Cleaner Relationship Specialty Start Date End Date Arun Antonio MD [address] [place] [address] PCP - General Family Practice 03/07/18 documented as of this encounter
--- OUTSIDE RECORDS SUMMARY | 2024-11-06 08:49 | XMS_ITS | Encounter Summary ---
Author Organization [facility] Address [address] [place] [address] Phone Care Team Providers Care Marketing Operations Associate Name Role Phone Arun Antonio MD Primary Care Provider [phone] Encounter Details Date Type Department Care Team (Late st Contact Info) Description 03/02/2019 Orders Only [facility] Rheumatology [address] [facility] [address] [facility] 5th [place] [address] [place] [address] Brenda Lafleur CMA Social History Tobacco Use Types Packs/Day Years Used Date Smoking Tobacco: Never Comments Unknown Sex and Gender Information Value Date Recorded Sex Assigned at Not on file Legal Sex Female 10:10 AM 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 pravastatin (PRAVACHOL) 20 mg tablet ojszikux-hrs-JF- lycopen-lutein (CENTRUM SILVER) 0.4-300-250 mg-mcg-mcg tablet daily lisinopril (PRINIVIL,ZESTRI L) 20 mg tablet daily levothyroxine (SYNTHROID, LEVOTHROID) 50 mcg tablet daily calcium carbonate-vitami n D3 1,500 mg (600mg elemental) -800 unit per tablet 2 times daily cholecalciferol (VITAMIN D-3) 1,000 unit daily rosuvastatin (CRESTOR) 40 mg tablet 12/28/2018 03/02/2019 teriparatide (FORTEO) 20 mcg/dose - 600 mcg/2.4 mL injection daily 12/04/2013 03/02/2019 pen needle, diabetic (BD ULTRA-FINE MINI PEN NEEDLE) 31 gauge x 3/16 needle BD U/F Pen Needle 31GAx 3/16 in, use one needle daily with Forteo Pen 12/04/2013 03/02/2019 ibandronate (BONIVA) 150 mg tablet TAKE 1 TABLET ONCE MONTHLY WITH 8 TO 10 OUNCES OF WATER. STAY UPRIGHT AND DO NOT EAT OR DRINK FOR 1 HOUR. 02/06/2016 03/02/2019 vitamins A,C,X-cxre-pzrmy r (ICAPS AREDS) 14,320-226-200 yfqi-cj-ubmj capsule Take as directed 03/02/2019 omega 3-sfi-zow-fish oil (FISH OIL) 100-160-1,000 mg capsule 2 times daily 03/02/2019 aspirin 81 mg enteric coated tablet Take as directed 03/02/2019 added in this encounter Care Teams Marketing Operations Associate Relationship Specialty Start Date End Date Arun Antonio MD [address] [place] [address] PCP - General Family Practice 03/07/18 documented as of this encounter
--- OUTSIDE RECORDS SUMMARY | 2024-11-06 08:52 | XMS_ITS | Continuity of Care Document ---
Author Organization [facility] Address [address] [facility] [address] [place] [address] Phone Care Team Providers Care Precipitation Equipment Tender Name Role Phone John OD, Miller Unavailable Unavailable Advance Directives Directive Yes / No Effective Date File Name No Information Encounters Encounter Description Practice Location Reason(s) For Visit Diagnoses Date Provider Providers Copied on Encounter [facility], [address], [place], [place], [id number], [place] tel:[phone] [facility] No Information Apr-0 6-200 1 John OD Miller. [address] , [address], [place], [address], [place]. tel:[phone] Family History Family Member Type Diagnosis Age At Onset No Information Payers Payer name Insurance type Covered democrat ID Authoriza tion(s) No Information Social History Type Description Quantity Date Captured Comments Sex Female Smoking Status No Information Chief Complaint And Reason For Visit No Information Reason For Referral Reason For Referral No Information History Of Present Illness Encounter Date Complaint History Of Prese nt Illness No Information Functional Status Date Functional Assessmen t No Information Instructions Date Instruction Additional Infor mation No Information Assessments Type Assessment Date No Information Patient Care Teams Name Effective Dates (start - stop) Status Members No Information
== END 2024-10-31 11:30 | disposition home or self-care (01) ==
PROVIDERS: PCP Family Medicine; Visit Provider Obstetrics & Gynecology
PROC: 0U5B8ZZ Destruction of Endometrium, Via Natural or Artificial Opening Endoscopic (ICD-10-PCS; CPT 58563; principal; 2024-10-31 10:30)
DX: D25.0 Submucous leiomyoma of uterus (principal); N85.02 Endometrial intraepithelial neoplasia [EIN]; I10 Essential (primary) hypertension; E78.00 Pure hypercholesterolemia, unspecified; M81.0 Age-related osteoporosis without current pathological fracture; Z98.890 Other specified postprocedural states; Z80.3 Family history of malignant neoplasm of breast; Z82.49 Family history of ischemic heart disease and other diseases of the circulatory system
CPT/HCPCS: 58558; 88305; A9270; J2003; J2704; J3010; J7030; J7120

== ENCOUNTER 2024-11-04 11:44 | Emergency (ER) | payer MEDICARE, SELFPAY ==
[2024-11-04 12:26] VITALS: BP 109/57; PULSE 80; RESP 16; TEMP 36.6; O2SAT 98
--- NOTE | 2024-11-04 16:01 | ED_ITS ---
HPI - Female Genitourinary General Chief complaint: Vaginal Bleeding <Ana Luciano PA-C - Last Filed: 11/05/24 16:28> Stated complaint: POST OP UTERINE BLEEDING S/P POLYP REMOVAL <Ana Luciano PA-C - Last Filed: 11/05/24 16:28> Time Seen by Provider: 11/04/24 16:02 <Ana Luciano PA-C - Last Filed: 11/05/24 16:28> Focused HPI: This is a 79 year old female that presents to the ER for uterine bleeding. Reports she recently had surgery (10/31) with Dr. Caballero, hysteroscopy D & C. She has had very heavy bleeding. She called Dr. Caballero and was prompted to be seen in the ER. GENERAL: Elderly, well-nourished, and in no acute distress. HEAD: Normocephalic, atraumatic. CHEST: Clear to auscultation. ?No respiratory distress. HEART: Regular rate and rhythm.? NEURO: ?Alert and oriented x3. Patient screened in triage and initial orders placed.? ?Additional care and disposition to be based upon?diagnostic testing and treatment. <Ana Luciano PA-C - Last Filed: 11/05/24 16:28> History of Present Illness HPI Narrative: Agree with the HPI as described above <Anton Bolaños MD - Last Filed: 11/04/24 22:08> Related Data Home medications: Home Medications ?Medication ?Instructions ?Recorded ?Confirmed ?Last Taken ?Type polyethylene glycol 3350 17 gram 17 g PO BID PRN constipation 12/19/21 10/12/24 Unknown History oral powder packet (Miralax) magnesium 250 mg tablet 250 mg PO DAILY 03/01/23 10/12/24 Unknown History CALCIUM 1 tablet BYMOUTH DAILY 08/25/23 10/12/24 Unknown History multivitamin (Daily Multi-Vitamin 1 tablet PO DAILY 08/25/23 10/12/24 Unknown History tablet) romosozumab-[id number] 105 mg/1.17 mL 210 mg subcut MONTHLY 09/06/24 10/12/24 08/15/24 History subcutaneous syringe (Evenity) <Ana Luciano PA-C - Last Filed: 11/05/24 16:28> Allergies/Adverse reactions: Allergies Allergy/AdvReac Type Severity Reaction Status Date / Time tramadol AdvReac Mild Hallucinati Verified 10/12/24 14:27 ng codeine AdvReac Unknown Nausea Verified 10/31/24 08:11 <Ana Luciano PA-C - Last Filed: 11/05/24 16:28> Review of Systems 2 Review of Systems: As reviewed above in HPI <Anton Bolaños MD - Last Filed: 11/04/24 22:08> [facility] Past Medical History Medical History: Medical History Missed High cholesterol Obesity (BMI 30.0-34.9) Essential hypertension Effusion, right knee Right knee pain Osteoporosis Hepatitis A High blood pressure Cataracts, both eyes <Ana Luciano PA-C - Last Filed: 11/05/24 16:28> Surgical History Surgical History: Surgical History History of dilation and curettage History of tonsillectomy <Ana Luciano PA-C - Last Filed: 11/05/24 16:28> Family History Family History: Family History Father Hypertension Cerebrovascular accident Mother Family history of malignant neoplasm of breast in first degree relative Other High cholesterol Scleroderma <Ana Luciano PA-C - Last Filed: 11/05/24 16:28> Social History Social History: Social History Social History: Patient lives at home by herself since her of CHF in August of 2020. Patient has 2 adult boys with 4 grandchildren. She denies having any pets and her son Brenden who lives here should be called 1st Carlos A 2nd for surrogate. 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 Patient wishes to be a full code however she does not want any long-term ventilation intubation or prolongation of life. 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 Mucous membranes moist. NECK: Supple. CHEST: [Clear to auscultation. No respiratory distress.] HEART: [Regular rate and rhythm]. No murmur heard. [Normal peripheral pulses.] ABDOMEN: [Soft, nondistended], [nontender], [No rigidity or guarding] GENITOURINARY: Chaperoned pelvic examination with speculum shows no active hemorrhage or bleeding, no pooling of blood in the fornix, thin blood from the cervical os was wiped away with Rodriguez swab without any reaccumulation of blood. No purulence or any evidence of infection or irritation. EXTREMITIES: Normal range of motion. [No edema.] SKIN: Warm, dry, no rash. NEURO: [No focal deficits]. Alert and oriented [x3.] PSYCH: [Normal mood and affect.] <Anton Bolaños MD - Last Filed: 11/04/24 22:08> Course Vital Signs Vital signs: Vital Signs Temperature 97.8 F 11/04/24 12:26 Pulse Rate 80 11/04/24 12:26 Respiratory Rate 16 11/04/24 12:26 Blood Pressure 109/57 L 11/04/24 12:26 Pulse Oximetry 98 11/04/24 12:26 Temperature 97.8 F 11/04/24 12:26 Pulse Rate 69 11/04/24 21:05 Respiratory Rate 17 11/04/24 21:05 Blood Pressure 128/62 11/04/24 21:05 Pulse Oximetry 99 11/04/24 21:05 <Ana Luciano PA-C - Last Filed: 11/05/24 16:28> Vital Signs Temperature 97.8 F 11/04/24 12:26 Pulse Rate 80 11/04/24 12:26 Respiratory Rate 16 11/04/24 12:26 Blood Pressure 109/57 L 11/04/24 12:26 Pulse Oximetry 98 11/04/24 12:26 Temperature 97.8 F 11/04/24 12:26 Pulse Rate 69 11/04/24 21:05 Respiratory Rate 17 11/04/24 21:05 Blood Pressure 128/62 11/04/24 21:05 Pulse Oximetry 99 11/04/24 21:05 <Anton Bolaños MD - Last Filed: 11/04/24 22:08> MDM - Female Genitourinary MDM Narrative Medical decision making narrative: 79-year-old female that is status post hysteroscopy, D&C, polypectomy with her OBGYN Dr. Caballero on 10/31. Patient has a history of abnormal uterine bleeding and dementia. She presents with her family members from her skilled care facility. Patient is noted to have some bleeding postoperative over last few days although the fpc was concerned that she was having some more bleeding and saturating a pad. Patient self is no any acute distress, awake alert oriented, answers all questions appropriately with normal vital signs, no tachycardia, fever, hypoxia blood pressure concerns. Chaperoned pelvic examination with speculum shows no active hemorrhage or bleeding, no pooling of blood in the fornix, thin blood from the cervical os was wiped away with Rodriguez swab without any reaccumulation of blood. No purulence or any evidence of infection or irritation. Patient is not actively hemorrhaging at this time and I discussed patient's care and exam findings with her OBGYN Dr. Caballero over the phone. We went over patient's assessment and recommendations were to give her 25 mg of intravenous conjugated estrogen. Patient's laboratory studies including CBC, CMP PT and PTT were obtained. Hemoglobin at her baseline without any anemia. No leukocytosis. Coagulation studies within normal limits. Patient is safe and stable for discharge home with regular PCP and OBGYN follow-up as directed. Family felt comfortable with this plan of care and they also felt comfortable driving her back to her care facility at this time. They were given strict return precautions and instructions for follow-up. <Anton Bolaños MD - Last Filed: 11/04/24 22:08> Medical Records Attestation: I reviewed the patient's medical records. <Anton Bolaños MD - Last Filed: 11/04/24 22:08> Lab Data Attestation: I reviewed the patient's lab results. <Anton Bolaños MD - Last Filed: 11/04/24 22:08> Result diagrams: 11/04/24 18:35 11/04/24 18:35 <Ana Luciano PA-C - Last Filed: 11/05/24 16:28> Labs: Lab Results 11/04/24 Range/Units 18:35 WBC 9.8 (4.5-10.0) K/mm3 RBC 4.22 (4.2-5.4) M/mm3 Hgb 12.5 (12.0-15.0) g/dL Hct 38.1 (37.0-47.0) % MCV 90.3 (80-100) fl MCH 29.6 (26-34) pg MCHC 32.8 (32-36) g/dl RDW 13.6 (11.5-14.5) % Plt Count 265 (150-375) k/mm3 MPV 10.1 (7.4-10.4) fl Immature Gran % (Auto) 0.7 H (0-0.5) % Neut % (Auto) 65.5 (45.5-73.1) % Lymph % (Auto) 23.0 (18.3-44.2) % Redwood % (Auto) 9.1 H (2.6-8.5) % Eos % (Auto) 1.3 (0-4.4) % Baso % (Auto) 0.4 (0.2-1.2) % Lymph # (Auto) 2.25 (0.9-3.2) K/mm3 Redwood # (Auto) 0.9 H (0.1-0.6) K/mm3 Eos # (Auto) 0.1 (0-0.3) K/mm3 Baso # (Auto) 0.0 (0.0-0.1) K/mm3 Abs Immat Gran (auto) 0.07 H (0.00-0.031) K/mm3 Absolute Neuts (auto) 6.4 (1.3-6.7) K/mm3 Absolute Nucleated RBC 0.000 (0.0-0.012) K/mm3 Nucleated RBC % 0.0 (0.0-0.2) % PT 13.7 (11.1-14.7) Seconds INR 1.0 APTT 21.4 L (22.3-36.8) Seconds Sodium 138 (137-145) mmol/L Potassium 4.0 (3.4-5.0) mmol/L Chloride 106 (98-107) mmol/L Carbon Dioxide 24 (22-30) mmol/L Anion Gap 8 (4-12) mmol/L BUN 39 H D (7-17) mg/dL Creatinine 0.69 L (0.7-1.0) mg/dL Estim Creat Clear Calc 44 ml/min Estimated GFR > 60 (59 - ) Glucose 122 H (65-110) mg/dL Calcium 9.7 (8.4-10.2) mg/dL Total Bilirubin 0.6 (0.2-1.3) mg/dL AST 36 (14-36) U/L ALT 27 (6-35) U/L Alkaline Phosphatase 73 (38-126) U/L Total Protein 7.0 (6.3-8.2) g/dL Albumin 4.2 (3.5-5.1) g/dL Blood Type A Positive Antibody Screen Negative <Ana Luciano PA-C - Last Filed: 11/05/24 16:28> Lab Results 11/04/24 Range/Units 18:35 WBC 9.8 (4.5-10.0) K/mm3 RBC 4.22 (4.2-5.4) M/mm3 Hgb 12.5 (12.0-15.0) g/dL Hct 38.1 (37.0-47.0) % MCV 90.3 (80-100) fl MCH 29.6 (26-34) pg MCHC 32.8 (32-36) g/dl RDW 13.6 (11.5-14.5) % Plt Count 265 (150-375) k/mm3 MPV 10.1 (7.4-10.4) fl Immature Gran % (Auto) 0.7 H (0-0.5) % Neut % (Auto) 65.5 (45.5-73.1) % Lymph % (Auto) 23.0 (18.3-44.2) % Redwood % (Auto) 9.1 H (2.6-8.5) % Eos % (Auto) 1.3 (0-4.4) % Baso % (Auto) 0.4 (0.2-1.2) % Lymph # (Auto) 2.25 (0.9-3.2) K/mm3 Redwood # (Auto) 0.9 H (0.1-0.6) K/mm3 Eos # (Auto) 0.1 (0-0.3) K/mm3 Baso # (Auto) 0.0 (0.0-0.1) K/mm3 Abs Immat Gran (auto) 0.07 H (0.00-0.031) K/mm3 Absolute Neuts (auto) 6.4 (1.3-6.7) K/mm3 Absolute Nucleated RBC 0.000 (0.0-0.012) K/mm3 Nucleated RBC % 0.0 (0.0-0.2) % PT 13.7 (11.1-14.7) Seconds INR 1.0 APTT 21.4 L (22.3-36.8) Seconds Sodium 138 (137-145) mmol/L Potassium 4.0 (3.4-5.0) mmol/L Chloride 106 (98-107) mmol/L Carbon Dioxide 24 (22-30) mmol/L Anion Gap 8 (4-12) mmol/L BUN 39 H D (7-17) mg/dL Creatinine 0.69 L (0.7-1.0) mg/dL Estim Creat Clear Calc 44 ml/min Estimated GFR > 60 (59 - ) Glucose 122 H (65-110) mg/dL Calcium 9.7 (8.4-10.2) mg/dL Total Bilirubin 0.6 (0.2-1.3) mg/dL AST 36 (14-36) U/L ALT 27 (6-35) U/L Alkaline Phosphatase 73 (38-126) U/L Total Protein 7.0 (6.3-8.2) g/dL Albumin 4.2 (3.5-5.1) g/dL Blood Type A Positive Antibody Screen Negative <Anton Bolaños MD - Last Filed: 11/04/24 22:08> Critical Care Time Critical Care Time Critical Care Time: No <Ana Luciano PA-C - Last Filed: 11/05/24 16:28> Discharge Plan Discharge Clinical Impression: Abnormal uterine bleeding Post-op bleeding Qualifiers: Surgical complication system/body Area: genitourinary Procedure type: g enitourinary Qualified Code(s): N99.820 - Postprocedural hemorrhage of a genitourinary system organ or structure following a genitourinary system procedure <Ana Luciano PA-C - Last Filed: 11/05/24 16:28> Patient Disposition: Home, Self-Care <Ana Luciano PA-C - Last Filed: 11/05/24 16:28> Condition: Stable <Ana Luciano PA-C - Last Filed: 11/05/24 16:28> Instructions: Antibiotic Form, Abnormal (Dysfunctional) Uterine Bleeding (ED) <Ana Luciano PA-C - Last Filed: 11/05/24 16:28> Additional Instructions: Follow-up with Dr. Ada nguyen OBGYN as well as your cancer specialist from [facility]. If you have any persistent or worsening bleeding return to the ER for evaluation however currently your not having any excess bleeding and this is normal for postoperative.. If you develop any lightheadedness, syncope, passing out sensations or any worsening pain or symptoms please seek re-evaluation at that time. <Ana Luciano PA-C - Last Filed: 11/05/24 16:28> Patient Language: Lebanese <Ana Luciano PA-C - Last Filed: 11/05/24 16:28> Prescriptions: No Action polyethylene glycol 3350 [Miralax] 17 gram powder in packet 17 g PO BID PRN (Reason: constipation) magnesium 250 mg tablet 250 mg PO DAILY CALCIUM 500 mg 1 tablet BYMOUTH DAILY Rx Instructions: OTC multivitamin [Daily Multi-Vitamin] Tablet 1 tablet PO DAILY Evenity 105 mg/1.17 mL syringe 210 mg subcut MONTHLY cephalexin 500 mg capsule 500 mg PO Q12H 5 Days Qty: 10 0RF levothyroxine 75 mcg tablet See Rx Instructions .ROUTE .COMPLEX Qty: 90 1RF Dose Instruction: Take 1 tablet by mouth once daily Rx Instructions: Take 1 tablet by mouth once daily donepezil 10 mg tablet 10 mg PO QHS Qty: 90 1RF rosuvastatin 20 mg tablet See Rx Instructions .ROUTE .COMPLEX Qty: 90 1RF Dose Instruction: Take 1 tablet by mouth once daily Rx Instructions: Take 1 tablet by mouth once daily lisinopril 5 mg tablet See Rx Instructions .ROUTE .COMPLEX Qty: 90 0RF Dose Instruction: Take 1 tablet by mouth once daily Rx Instructions: Take 1 tablet by mouth once daily sertraline 50 mg tablet See Rx Instructions .ROUTE .COMPLEX Qty: 180 0RF Dose Instruction: Take 1 tablet by mouth twice daily Rx Instructions: Take 1 tablet by mouth twice daily <Ana Luciano PA-C - Last Filed: 11/05/24 16:28> Follow-up/Referrals: Cosme Boyd MD [Primary Care Provider] - <Ana Luciano PA-C - Last Filed: 11/05/24 16:28> Time of Disposition: 20:20 <Ana Luciano PA-C - Last Filed: 11/05/24 16:28> 20:20 <Anton Bolaños MD - Last Filed: 11/04/24 22:08>
[2024-11-04 18:22] VITALS: BP 131/69; PULSE 70; RESP 18; O2SAT 98
[2024-11-04 18:41] LABS: Basophils Percent Auto 0.4 % (0.2-1.2); Eosinophils Absolute Auto 0.1 K/mm3 (0-0.3); Eosinophils Percent Auto 1.3 % (0-4.4); Hematocrit 38.1 % (37.0-47.0); Hemoglobin 12.5 g/dL (12.0-15.0); Immature Granulocyte Absolute 0.07 K/mm3 (0.00-0.031); Immature Granulocyte Percent A 0.7 % (0-0.5); Lymphocytes Absolute Auto 2.25 K/mm3 (0.9-3.2); Mean Corpuscular HGB Conc 32.8 g/dl (32-36); Mean Corpuscular Hemoglobin 29.6 pg (26-34); Mean Corpuscular Volume 90.3 fl (80-100); Mean Platelet Volume 10.1 fl (7.4-10.4); Monocytes Absolute Auto 0.9 K/mm3 (0.1-0.6); Monocytes Percent Auto 9.1 % (2.6-8.5); Neutrophils Absolute Auto 6.4 K/mm3 (1.3-6.7); Neutrophils Percent Auto 65.5 % (45.5-73.1); Platelet Count Result 265 k/mm3 (150-375); Red Blood Count 4.22 M/mm3 (4.2-5.4); Red Cell Distribution Width 13.6 % (11.5-14.5); White Blood Count 9.8 K/mm3 (4.5-10.0)
[2024-11-04 18:51] LABS: Alanine Aminotransferase 27 U/L (6-35); Albumin Level 4.2 g/dL (3.5-5.1); Alkaline Phosphatase 73 U/L (38-126); Anion Gap 8 mmol/L (4-12); Aspartate Amino Transferase 36 U/L (14-36); Bilirubin,Total 0.6 mg/dL (0.2-1.3); Blood Urea Nitrogen 39 mg/dL (7-17); Calcium 9.7 mg/dL (8.4-10.2); Carbon Dioxide 24 mmol/L (22-30); Chloride 106 mmol/L (98-107); Estimated CRCL calculation 44 ml/min; Estimated Glomerular Filt Rate > 60; Glucose 122 mg/dL (65-110); Sodium 138 mmol/L (137-145)
[2024-11-04 18:56] LABS: Prothrombin Time 13.7 Seconds (11.1-14.7)
[2024-11-04 18:57] LABS: Partial Thromboplastin Time 21.4 Seconds (22.3-36.8)
[2024-11-04] MEDS: ESTROGENS, CONJUGATED 25 MG/5 ML VIAL IV PUSH (20:02)
[2024-11-04 21:05] VITALS: BP 128/62; PULSE 69; RESP 17; O2SAT 99
== END 2024-11-04 21:06 | disposition home or self-care (01) ==
PROVIDERS: Physician Assistant; Emergency Provider Student in an Organized Health Care Education/Training Program; PCP Family Medicine
DX: N93.9 Abnormal uterine and vaginal bleeding, unspecified (principal); N99.820 Postprocedural hemorrhage of a genitourinary system organ or structure following a genitourinary system procedure; M81.0 Age-related osteoporosis without current pathological fracture; I10 Essential (primary) hypertension
CPT/HCPCS: 36415; 80053; 85025; 85610; 85730; 86850; 86900; 86901; 96374; 99284; J1410